=== PATIENT | female | born 1960 ===

== ENCOUNTER 2016-12-02 12:12 | Inpatient (IN) | payer MEDICARE, MEDICAID ==
--- NOTE | 2016-12-02 12:25 | ED PDOC ---
HPI: General Adult Time Seen by Provider: 12/02/16 12:25 Chief Complaint (Nursing): Altered Mental Status Chief Complaint (Provider): AMS History Per: Patient, EMS, Family Past Medical History Vital Signs: Last Vital Signs Temp 98.0 F 12/02/16 12:16 Pulse 85 12/02/16 12:16 Resp 20 12/02/16 12:16 BP 165/82 H 12/02/16 12:16 Pulse Ox - Allergies Allergies/Adverse Reactions: Allergies Allergy/AdvReac Type Severity Reaction Status Date / Time Unobtainable Allergy Verified 12/02/16 12:16
[2016-12-02 13:08] LABS: BASO # 0.1 K/uL (0.0-0.2); BASO % 0.4 % (0.0-2.0); HEMATOCRIT 38.4 % (34.0-47.0); LYMPH # 2.1 K/uL (1.0-4.3); LYMPH % 11.7 % (20.0-40.0); MEAN CELL VOLUME 73.6 fl (81.0-99.0); MEAN CORPUSCULAR HEMOGLOBIN 23.1 pg (27.0-31.0); MEAN CORPUSCULAR HGB CONC 31.4 g/dL (33.0-37.0); MEAN PLATELET VOLUME 8.7 fl (7.2-11.7); MONO # 1.1 K/uL (0.0-0.8); MONO % 6.4 % (0.0-10.0); NEUT # 14.6 K/uL (1.8-7.0); NEUT % 81.5 % (50.0-75.0); RED CELL DISTRIBUTION WIDTH 16.5 % (11.5-14.5); WHITE BLOOD COUNT 17.9 K/uL (4.8-10.8)
[2016-12-02 13:17] LABS: ALB/GLOB RATIO 1.1 (1.0-2.1); ALCOHOL SERUM < 10 mg/dl (0-10); ALKALINE PHOSPHATASE 118 U/L (38-126); ALT/SGPT 40 U/L (9-52); AST/SGOT 40 U/L (14-36); BILIRUBIN,TOTAL 0.8 mg/dl (0.2-1.3); BLOOD UREA NITROGEN 13 mg/dl (7-17); CALCIUM 9.6 mg/dL (8.4-10.2); CARBON DIOXIDE 21 mmol/L (22-30); CHLORIDE 100 mmol/L (98-107); GFR AFRICAN-AMERICAN > 60; GLUCOSE,RANDOM 374 mg/dL (65-105); POTASSIUM 3.7 MMOL/L (3.6-5.0); SODIUM 142 mmol/l (132-148); TOTAL PROTEIN 8.7 G/DL (6.3-8.2)
[2016-12-02 13:33] LABS: PARTIAL THROMBOPLASTIN TIME 21.9 SECONDS (23.3-32.5)
--- NOTE | 2016-12-02 13:43 | ED PDOC ---
HPI: General Adult Time Seen by Provider: 12/02/16 12:25 Chief Complaint (Nursing): Altered Mental Status Chief Complaint (Provider): Abdominal Pain/Psych History Per: Patient, EMS History/Exam Limitations: no limitations Onset/Duration Of Symptoms: Days (x1 week) Have you had recent travel within the past 21 days to any of the following countries: [place], [place], [place] or [place]?: No Current Symptoms Are (Timing): Still Present Severity: Moderate Recently: Seen In ED, Treated By A Physician Additional History Per: EMS Additional Complaint(s): Itzel Thompson is a 56 year old female, with a past medical history of hypertension, diabetes mellitus, depression, and bipolar disorder, who presents to the emergency department via EMS, with complaints of abdominal pain, that the patient has been experiencing for 1 week. Abdominal pain is present due to the patient falling a week ago; however, she believes that the pain is occurring due to "babies in her abdomen". Associated nausea is also currently present. Denies vomiting, chest pain, shortness of breath, or a headache. Of note, patient reports that she is hearing voices in her head. Last night, she believes she heard " trumpets". Per family, pt was seen to have witnessed seizures at home associated with fall this afternoon. Unclear if there was LOC but they report convulsions. No history of seizures. Patient's history reviewed from EMS report. Report states patient has a history of major depressive disorder with psychotic features which she is currently taking Fluoxetine and Risperidone for. Patient was admitted to [facility] for psychiatric related issues on 11/28/2016. PMD: Dr. Garcia Past Medical History Reviewed: Historical Data, Nursing Documentation, Vital Signs Vital Signs: Last Vital Signs Temp 98.0 F 12/02/16 12:16 Pulse 82 12/02/16 18:00 Resp 20 12/02/16 12:16 BP 165/82 H 12/02/16 12:16 Pulse Ox - Medical History PMH: Bipolar Disorder, Depression, Diabetes, HTN - Surgical History Surgical History: CABG, Pacemaker (left-sided) - Family History Family History: States: Unknown Family Hx - Social History Current smoker - smoking cessation education provided: No Ex-Smoker (has not smoked in the last 12 months): No Alcohol: None Drugs: Denies - Home Medications Home Medications: Ambulatory Orders Medication Instructions Recorded Calcium Carbonate [Oscal] 1 tab PO BID 12/02/16 FLUoxetine [Prozac] 1 tab PO DAILY 12/02/16 Fluconazole [Diflucan] 1 tab PO DAILY 12/02/16 Insulin Aspart [Novolog Flexpen] 15 units SC TID 12/02/16 Isosorbide Mononitrate [Imdur] 1 tab PO DAILY 12/02/16 Lisinopril [Zestril] 1 tab PO DAILY 12/02/16 Metoprolol Tartrate [Lopressor] 1 tab PO DAILY 12/02/16 Montelukast [Singulair] 1 tab PO HS 12/02/16 Morphine [Morphine Immediate 1 tab PO Q12H 12/02/16 Release Tab] Pantoprazole Sodium [Protonix] 1 tab PO DAILY 12/02/16 Risperidone [Risperdal] 0.5 tab PO BID 12/02/16 - Allergies Allergies/Adverse Reactions: Allergies Allergy/AdvReac Type Severity Reaction Status Date / Time amitriptyline HCl Allergy ITCHING Verified 12/02/16 12:34 [From Elavil] duloxetine HCl Allergy ITCHING Verified 12/02/16 12:34 [From Cymbalta] gabapentin [From Neurontin] Allergy ITCHING Verified 12/02/16 12:34 metformin Allergy ITCHING Verified 12/02/16 12:34 methotrexate Allergy ITCHING Verified 12/02/16 12:34 soy Allergy ITCHING Verified 12/02/16 12:34 Review of Systems ROS Statement: Except As Marked, All Systems Reviewed And Found Negative Cardiovascular: Negative for: Chest Pain Respiratory: Negative for: Shortness of Breath Gastrointestinal: Positive for: Nausea, Abdominal Pain. Negative for: Vomiting Neurological: Positive for: Altered Mental Status. Negative for: Confusion, Headache Psych: Positive for: Depression, Psychosis Physical Exam - Reviewed Nursing Documentation Reviewed: Yes Vital Signs Reviewed: Yes - Physical Exam Appears: Positive for: Non-toxic, No Acute Distress (morbidly obese). Negative for: Uncomfortable Head Exam: Positive for: ATRAUMATIC, NORMOCEPHALIC Skin: Positive for: Normal Color, Warm, Dry Eye Exam: Positive for: Normal appearance, EOMI, PERRL Neck: Positive for: Normal, Painless ROM Cardiovascular/Chest: Positive for: Regular Rate, Rhythm. Negative for: Edema, Murmur Respiratory: Positive for: Normal Breath Sounds. Negative for: Respiratory Distress Gastrointestinal/Abdominal: Positive for: Normal Exam, Soft, Tenderness ( epigastric) Extremity: Positive for: Normal ROM. Negative for: Tenderness, Swelling Neurologic/Psych: Positive for: Alert, Oriented - Laboratory Results Result Diagrams: 12/02/16 12:05 12/02/16 13:00 - ECG ECG: Positive for: Interpreted By Me, Viewed By Me ECG Rhythm: Positive for: Normal QRS, Normal ST Segment, Atrioventricular Paced. Negative for: ST/T Changes Rate: 82 Medical Decision Making Medical Decision Makin:25 Initial Impression: abdominal pain and psychosis, seizures vs syncope Differential Diagnoses include, but are not limited to psychosis, a blunt abdominal injury, and other multiple causes of confusion and abdominal pain are also considered. Initial Plan: * CT Abdomen & Pelvis w/ IV Contrast * CT Head w/o Contrast * Chest X-Ray * EKG * Alcohol Serum * CBC * CMP * PT/PTT * CPK * Lipase * Urine Drug Screen * Urine Dip * Urinalysis * Reevaluation [address] Fajardo who admits for Dr Garcia. Per Dr Fajardo his patient admissions are covered by hospitalist. Scribe Attestation: Documented by Mj Marquez, acting as a scribe for Jhoan Lewis MD. Provider Scribe Attestation: All medical record entries made by the Scribe were at my direction and personally dictated by me. I have reviewed the chart and agree that the record accurately reflects my personal performance of the history, physical exam, medical decision making, and the department course for this patient. I have also personally directed, reviewed, and agree with the discharge instructions and disposition. Disposition - Clinical Impression Clinical Impression: Seizure, Psychosis, Hyperglycemia - Patient ED Disposition Is Patient to be Admitted: Yes Discussed With : Abdirizak Alejo Comment: covering for Dr Fajardo Doctor Will See Patient In The: ED Counseled Patient/Family Regarding: Studies Performed, Diagnosis - Disposition Disposition Time: 18:30 Condition: FAIR - Pt Status Changed To: Hospital Disposition Of: Inpatient - Admit Certification Admit to Inpatient:: After my assessment, the patient will require hospitalization for at least two midnights. This is because of the severity of symptoms shown, intensity of services needed, and/or the medical risk in this patient being treated as an outpatient. - POA Present On Arrival: Falls Or Trauma, Poor Glycemic Control
[2016-12-02 13:55] LABS: LIPASE 57 U/L (23-300)
--- NOTE | 2016-12-02 15:30 | RAD ---
HISTORY: Rib pain. Technique: Single view portable semi erect @ 12:57. COMPARISON: No prior. FINDINGS: LUNGS: No active pulmonary disease. PLEURA: No significant pleural effusion identified, no pneumothorax apparent. CARDIOVASCULAR: Cardiomegaly. No evidence of acute, significant cardiovascular disease. Position/ configuration of pacemaker Satisfactory. OSSEOUS STRUCTURES: No significant abnormalities. VISUALIZED UPPER ABDOMEN: Normal. OTHER FINDINGS: None. IMPRESSION: No active disease.
[2016-12-02] MEDS ORDERED: Sodium Chloride 0.9% 1,000 ML IV STA (15:53)
[2016-12-02] MEDS ORDERED: Insulin Regular 100 units/ml IV STA (16:40)
[2016-12-02] MEDS ORDERED: Insulin Regular 100 units/ml ONE (16:41)
[2016-12-02] MEDS ORDERED: Sodium Chloride 0.9% 100 ML ONE (17:17)
[2016-12-02] MEDS ORDERED: Iodixanol 320 MG/ML 100 ML BOTTLE IV ONE (17:17)
--- NOTE | 2016-12-02 18:10 | CT ---
PROCEDURE: CT HEAD WITHOUT CONTRAST. HISTORY: AMS COMPARISON: None available. TECHNIQUE: Axial computed tomography images were obtained through the head/brain without intravenous contrast. Radiation dose: Total exam DLP = 457.20 mGy-cm. This CT exam was performed using one or more of the following dose reduction techniques: Automated exposure control, adjustment of the mA and/or kV according to patient size, and/or use of iterative reconstruction technique. FINDINGS: HEMORRHAGE: No intracranial hemorrhage. BRAIN: No mass effect or edema. No atrophy or chronic microvascular ischemic changes. VENTRICLES: Unremarkable. No hydrocephalus. CALVARIUM: Unremarkable. PARANASAL SINUSES: Unremarkable as visualized. No significant inflammatory changes. MASTOID AIR CELLS: Unremarkable as visualized. No inflammatory changes. OTHER FINDINGS: None. IMPRESSION: No acute intracranial abnormalities. No significant findings to account for the clinical presentation.
--- NOTE | 2016-12-02 18:15 | CT ---
PROCEDURE: CT Abdomen and Pelvis with contrast HISTORY: fall, injury, abdominal pain COMPARISON: None. TECHNIQUE: Contrast dose: 90 cc Visipaque 320. Radiation dose: Total exam DLP = 1125.82 mGy-cm. This CT exam was performed using one or more of the following dose reduction techniques: Automated exposure control, adjustment of the mA and/or kV according to patient size, and/or use of iterative reconstruction technique. FINDINGS: LOWER THORAX: Unremarkable. LIVER: Hepatomegaly. Hepatic steatosis. No focal masses. No intrahepatic bile duct dilatation or perihepatic ascites. GALLBLADDER AND BILE DUCTS: Status post cholecystectomy. No abnormality is seen in the gallbladder fossa. PANCREAS: Unremarkable. No gross lesion or ductal dilatation. SPLEEN: Unremarkable. ADRENALS: Unremarkable. No mass. KIDNEYS AND URETERS: Unremarkable. No hydronephrosis. No solid mass. VASCULATURE: Unremarkable. No aortic aneurysm. BOWEL: Unremarkable. No obstruction. No gross mural thickening. APPENDIX: Normal appendix. PERITONEUM: Unremarkable. No free fluid. No free air. LYMPH NODES: Unremarkable. No enlarged lymph nodes. BLADDER: Unremarkable. REPRODUCTIVE: Unremarkable. BONES: No acute fracture. OTHER FINDINGS: None. IMPRESSION: No acute findings related to/accounting for the clinical presentation. Additional benign and/or incidental findings described above.
--- NOTE | 2016-12-02 19:26 | CP.PCM.HP ---
History of Present Illness - History of Present Illness History of Present Illness: 56 yo female with history of Depression, HTN, CAD, DMII, COPD and "cardiac diseas/cardiac arrhythmia" with pacemaker and defibrillator brought in by EMS because of witnessed generalized seizure. Homemaker described seizure activity as jerking all over with eyeballs rolling up. She was out for 2 minutes, then confused for a few minutes when awaken. Patient has not been sleeping for 4 days since she stopped taking Ambien and Xanax. She also complained of abdominal pain in the ER because of a fall a week ago. Not sure whether there was LOC during the fall or during the witnessed seizure by the family. Patient denied chest pain, SOB, palpitation or headache. Son Ricardo said that she was just [place] [facility] staying for 4 days. Present on Admission - Present on Admission Any Indicators Present on Admission: No History of DVT/PE: No History of Uncontrolled Diabetes: No Urinary Catheter: No Decubitus Ulcer Present: No Review of Systems - Review of Systems All systems: reviewed and no additional remarkable complaints except (aside from those mentioned, 12 point system review were negative by me) Past Patient History - Past Social History Smoking Status: Former Smoker Alcohol: None Drugs: Denies Home Situation {Lives}: With Family - CARDIAC Hx Cardia Arrhythmia: Yes Hx Hypertension: Yes Hx Internal Defibrillator: Yes Hx Pacemaker: Yes (left-sided) - PULMONARY Hx Chronic Obstructive Pulmonary Disease (COPD): Yes - NEUROLOGICAL Hx Neurological Disorder: No - HEENT Hx HEENT Problems: No - RENAL Hx Chronic Kidney Disease: No - ENDOCRINE/METABOLIC Hx Diabetes Mellitus Type 2: Yes - HEMATOLOGICAL/ONCOLOGICAL Hx Blood Disorders: No - INTEGUMENTARY Hx Dermatological Problems: No - MUSCULOSKELETAL/RHEUMATOLOGICAL Hx Musculoskeletal Disorders: No - GASTROINTESTINAL Hx Gastrointestinal Disorders: No - GENITOURINARY/GYNECOLOGICAL Hx Genitourinary Disorders: No - PSYCHIATRIC Hx Bipolar Disorder: Yes Hx Depression: Yes - SURGICAL HISTORY Hx Section: Yes (4 ) Hx Cholecystectomy: Yes Other/Comment: pacemaker/defibrillator, AICD? insertion - ANESTHESIA Hx Anesthesia: Yes Hx Anesthesia Reactions: No Meds Allergies/Adverse Reactions: Allergies Allergy/AdvReac Type Severity Reaction Status Date / Time amitriptyline HCl Allergy ITCHING Verified 12/02/16 12:34 [From Elavil] duloxetine HCl Allergy ITCHING Verified 12/02/16 12:34 [From Cymbalta] gabapentin [From Neurontin] Allergy ITCHING Verified 12/02/16 12:34 metformin Allergy ITCHING Verified 12/02/16 12:34 methotrexate Allergy ITCHING Verified 12/02/16 12:34 soy Allergy ITCHING Verified 12/02/16 12:34 Physical Exam - Constitutional Appears: No Acute Distress - Head Exam Head Exam: ATRAUMATIC - Eye Exam Eye Exam: EOMI, PERRL. absent: Nystagmus Pupil Exam: NORMAL ACCOMODATION - ENT Exam ENT Exam: Mucous Membranes Moist - Neck Exam Neck exam: Negative for: Meningismus - Respiratory Exam Respiratory Exam: absent: Rhonchi, Wheezes, Respiratory Distress - Cardiovascular Exam Cardiovascular Exam: REGULAR RHYTHM, +S1, +S2 - GI/Abdominal Exam GI & Abdominal Exam: Soft. absent: Tenderness - Rectal Exam Rectal Exam: Deferred - Extremities Exam Extremities exam: Negative for: calf tenderness, pedal edema - Back Exam Back exam: absent: tenderness - Neurological Exam Neurological exam: Alert, Oriented x3 - Psychiatric Exam Psychiatric exam: Flat Affect - Skin Skin Exam: Dry, Intact Results - Vital Signs Recent Vital Signs: Last Vital Signs Temp 98.0 F 12/02/16 12:16 Pulse 82 12/02/16 18:39 Resp 20 12/02/16 12:16 BP 165/82 H 12/02/16 12:16 Pulse Ox - Labs Result Diagrams: 12/02/16 12:05 12/02/16 13:00 Assessment & Plan (1) New onset seizure Status: Acute Comment: admit to telemetry. neuro consult with Dr Barreto (called by ER). Ativan 1mg IV q 4hrs prn (2) Psychosis Status: Chronic Comment: psyche consult with Dr Thomson. Fluoxetine 1mg PO daily. Risperidone 0.5mg PO BID (3) HTN (hypertension) Status: Chronic Comment: BP uncontrolled. Lopressor 25mg PO q 12hrs. Lisinopril 5mg PO daily. Imdur 30mg PO HS (4) DMII (diabetes mellitus, type 2) Status: Chronic Comment: BS uncontrolled. accuchek ACHS. Insulin Aspart 15 units SC ACTID. Levemir 30 units SC HS. HgA1C, BMP in am (5) COPD (chronic obstructive pulmonary disease) Status: Chronic Comment: asymptomatic. Duoneb q 4hrs prn for wheezing/SOB. Montelukast 10mg PO HS (6) CAD (coronary artery disease) Status: Chronic Comment: denied chest pain or SOB. continue Imdur, statin and ASA. cardiology consult with Dr Murillo (7) DVT prophylaxis Status: Acute Comment: Lovenox 40mg SC daily
[2016-12-02 21:57] LABS: RBC URINE 2 /hpf (0-3); URINE BILIRUBIN NEGATIVE (NEGATIVE); URINE BLOOD NEGATIVE (NEGATIVE); URINE COLOR YELLOW (YELLOW); URINE GLUCOSE (UA) >=500 mg/dL (Normal); URINE KETONE 80 mg/dL (NEGATIVE); URINE LEUKOCYTE ESTERASE NEG Leu/uL (Negative); URINE PROTEIN >=500 mg/dL (NEGATIVE); URINE UROBILINOGEN 0.2-1.0 mg/dL (0.2-1.0); WBC URINE < 1 /hpf (0-5)
[2016-12-02] MEDS ORDERED: Insulin Detemir 100 Units/ml Inj SC SCH (22:00)
[2016-12-03 07:26] LABS: BASO # 0.1 K/uL (0.0-0.2); BASO % 0.4 % (0.0-2.0); HEMATOCRIT 37.4 % (34.0-47.0); LYMPH # 3.8 K/uL (1.0-4.3); MEAN CORPUSCULAR HEMOGLOBIN 22.7 pg (27.0-31.0); MEAN CORPUSCULAR HGB CONC 30.7 g/dL (33.0-37.0); MEAN PLATELET VOLUME 8.6 fl (7.2-11.7); MONO # 1.4 K/uL (0.0-0.8); MONO % 7.9 % (0.0-10.0); NEUT # 12.8 K/uL (1.8-7.0); NEUT % 70.7 % (50.0-75.0); RED CELL DISTRIBUTION WIDTH 16.8 % (11.5-14.5); WHITE BLOOD COUNT 18.1 K/uL (4.8-10.8)
[2016-12-03 08:02] LABS: BLOOD UREA NITROGEN 15 mg/dl (7-17); CALCIUM 9.5 mg/dL (8.4-10.2); CARBON DIOXIDE 21 mmol/L (22-30); CHLORIDE 104 mmol/L (98-107); GFR AFRICAN-AMERICAN > 60; GLUCOSE,RANDOM 296 mg/dL (65-105); POTASSIUM 3.1 MMOL/L (3.6-5.0); SODIUM 144 mmol/l (132-148)
[2016-12-03] MEDS ORDERED: Pantoprazole 40 mg EC Tab PO SCH (09:00)
[2016-12-03] MEDS ORDERED: Insulin Lispro (humaLOG) 100 Units/ml Inj SC SCH (09:00)
[2016-12-03] MEDS: Pantoprazole 40 mg EC Tab PO SCH (09:18)
[2016-12-03] MEDS: Enoxaparin 40 mg Syringe SC SCH (09:19)
[2016-12-03] MEDS: Insulin Detemir 100 Units/ml Inj SC SCH ×2 (11:00→21:42)
--- NOTE | 2016-12-03 11:44 | CP.PCM.CON ---
History of Present Illness - History of Present Illness History of Present Illness: Psychiatry consult called for evaluation of depression Patient is a poor historian due to acute altered mental status 2/2 medical/ neurological reasons. CC: "I don't remember." HPI: 56 year old female, with a past medical history of hypertension, diabetes mellitus, depression, presented to the emergency department via EMS, with complaints of abdominal pain, and witnessed seizures associated with a fall. Patient unable to participate in interview at this time due to acute change in mental status 2/2 medical issues. Patient denied acute ideation to harm herself, but mortgage or loan underwriter was unable to get any additional information. PMHx: Hypertension, diabetes mellitus, depression, seizure PPHx: [place] [facility] [place] w/ [place] features, as per chart treated with Prozac 40 daily and Risperdal 0.5 mg PO BID. Patient unable to provide additional information. PMD: Dr. Garcia All: Amitriptyline, Duloxetine, Gabapentin, Meformin; unable to confirm with the patient as this time FHx: Unknown family history of mental illness MSE: Alert and oriented to self. Unable to engage in interview, was falling asleep. Impression: 56 year old female, with a past medical history of hypertension, diabetes mellitus, depression, presented to the emergency department via EMS, with complaints of abdominal pain, and witnessed seizures associated with a fall. Acute change in mental status is due to a primary medical condition, not acute psychiatric issue. -No acute psychiatric admission indicated at this time -If previous medications have been confirmed, continue Prozac 40 mg PO Daily and Risperdal 0.5 mg PO BID -Call w/ further questions, Dr. Thomson [phone] Past Patient History - Past Medical History & Family History Past Medical History?: Yes - Past Social History Smoking Status: Never Smoked - CARDIAC Hx Cardiac Disorders: Yes Hx Hypertension: Yes - PULMONARY Hx Respiratory Disorders: Yes Hx Chronic Obstructive Pulmonary Disease (COPD): Yes - NEUROLOGICAL Hx Neurological Disorder: Yes Hx Seizures: Yes - HEENT Hx HEENT Problems: No - RENAL Hx Chronic Kidney Disease: No - ENDOCRINE/METABOLIC Hx Endocrine Disorders: Yes Hx Diabetes Mellitus Type 2: Yes - HEMATOLOGICAL/ONCOLOGICAL Hx Blood Disorders: No Hx AIDS: No Hx Human Immunodeficiency Virus (HIV): No - INTEGUMENTARY Hx Dermatological Problems: No - MUSCULOSKELETAL/RHEUMATOLOGICAL Hx Musculoskeletal Disorders: No Hx Falls: Yes - GASTROINTESTINAL Hx Gastrointestinal Disorders: No - GENITOURINARY/GYNECOLOGICAL Hx Genitourinary Disorders: No - PSYCHIATRIC Hx Psychophysiologic Disorder: Yes Hx Bipolar Disorder: Yes Hx Depression: Yes Hx Substance Use: No - SURGICAL HISTORY Hx Surgeries: Yes Hx Section: Yes (4 ) Hx Cholecystectomy: Yes Other/Comment: pacemaker/defibrillator, AICD? insertion - ANESTHESIA Hx Anesthesia: Yes Hx Anesthesia Reactions: No Meds Allergies/Adverse Reactions: Allergies Allergy/AdvReac Type Severity Reaction Status Date / Time amitriptyline HCl Allergy ITCHING Verified 12/02/16 12:34 [From Elavil] duloxetine HCl Allergy ITCHING Verified 12/02/16 12:34 [From Cymbalta] gabapentin [From Neurontin] Allergy ITCHING Verified 12/02/16 12:34 metformin Allergy ITCHING Verified 12/02/16 12:34 methotrexate Allergy ITCHING Verified 12/02/16 12:34 soy Allergy ITCHING Verified 12/02/16 12:34 - Medications Medications: Current Medications Aspirin (Aspirin Chewable) 81 mg PO DAILY [facility] Last Admin: 12/03/16 09:16 Dose: 81 mg Atorvastatin Calcium (Lipitor) [address] [facility] Last Admin: 12/02/16 22:18 Dose: 20 mg Calcium Carbonate (Oscal) 500 mg PO DAILY [facility] Last Admin: 12/03/16 09:18 Dose: Not Given Enoxaparin Sodium (Lovenox) 40 mg SC DAILY [facility] PRN Reason: Protocol Last Admin: 12/03/16 09:19 Dose: Not Given Fluoxetine HCl (Prozac) 40 mg PO DAILY [facility] Last Admin: 12/03/16 09:19 Dose: 40 mg Insulin Detemir (Levemir) 40 units SC HS [facility] Last Admin: 12/03/16 11:00 Dose: Not Given Insulin Human Lis[facility] ([facility]al[facility]) [facility] Isosorbide Mononitrate (Imdur) [address] [facility] Last Admin: 12/02/16 22:18 Dose: 30 mg Lisinopril (Zestril) 5 mg PO DAILY [facility] Last Admin: 12/03/16 09:20 Dose: 5 mg Lorazepam (Ativan) 1 mg IVP Q4 PRN PRN Reason: Seizure activity Metoprolol Tartrate (Lopressor) 25 mg PO Q12 [facility] Last Admin: 12/03/16 09:17 Dose: 25 mg Montelukast Sodium (Singulair) 10 mg PO HS [facility] Last Admin: 12/02/16 22:18 Dose: 10 mg Pantoprazole Sodium (Protonix Ec Tab) 40 mg PO DAILY [facility] Last Admin: 12/03/16 09:18 Dose: 40 mg Risperidone (Risperdal Tab) 0.5 mg PO BID [facility] Last Admin: 12/03/16 09:19 Dose: 0.5 mg Results - Vital Signs Recent Vital Signs: Last Vital Signs Temp 98.5 F 12/03/16 08:00 Pulse 68 12/03/16 09:20 Resp 18 12/03/16 08:00 BP 132/70 12/03/16 09:20 Pulse Ox 95 12/03/16 08:00 - Labs Result Diagrams: 12/03/16 05:30 12/03/16 05:30 Labs: Laboratory Results - last 24 hr 12/02/16 12/02/16 12/02/16 18:53 20:46 21:13 WBC RBC Hgb Hct MCV MCH MCHC RDW Plt Count MPV Neut % (Auto) Lymph % (Auto) Branch % (Auto) Eos % (Auto) Baso % (Auto) Neut # Lymph # Branch # Eos # Baso # Sodium Potassium Chloride Carbon Dioxide Anion Gap BUN Creatinine Est GFR ( Amer) Est GFR (Non-Af Amer) POC Glucose (mg/dL) 250 H 297 H Random Glucose Calcium Troponin I < 0.0120 Urine Color Urine Clarity Urine pH Ur Specific Collins Urine Protein Urine Glucose (UA) Urine Ketones Urine Blood Urine Nitrate Urine Bilirubin Urine Urobilinogen Ur Leukocyte Esterase Urine RBC (Auto) Urine Microscopic WBC Ur Squamous Epith Cells Urine Opiates Screen Urine Methadone Screen Ur Barbiturates Screen Ur Phencyclidine Scrn Ur Amphetamines Screen U Benzodiazepines Scrn U Oth Cocaine Metabols U Cannabinoids Screen 12/02/16 12/03/16 12/03/16 21:45 05:30 07:58 WBC 18.1 H RBC 5.06 Hgb 11.5 L Hct 37.4 MCV 74.0 L MCH 22.7 L MCHC 30.7 L RDW 16.8 H Plt Count 450 H MPV 8.6 Neut % (Auto) 70.7 Lymph % (Auto) 21.0 Branch % (Auto) 7.9 Eos % (Auto) 0.0 Baso % (Auto) 0.4 Neut # 12.8 H Lymph # 3.8 Branch # 1.4 H Eos # 0.0 Baso # 0.1 Sodium 144 Potassium 3.1 L Chloride 104 Carbon Dioxide 21 L Anion Gap 22 H BUN 15 Creatinine 0.4 L Est GFR ( Amer) > 60 Est GFR (Non-Af Amer) > 60 POC Glucose (mg/dL) 288 H Random Glucose 296 H Calcium 9.5 Troponin I < 0.0120 Urine Color Yellow Urine Clarity Clear Urine pH 6.0 Ur Specific Collins 1.059 H Urine Protein >=500 Urine Glucose (UA) >=500 Urine Ketones 80 Urine Blood Negative Urine Nitrate Negative Urine Bilirubin Negative Urine Urobilinogen 0.2-1.0 Ur Leukocyte Esterase Neg Urine RBC (Auto) 2 Urine Microscopic WBC < 1 Ur Squamous Epith Cells 1 Urine Opiates Screen Positive H Urine Methadone Screen Negative Ur Barbiturates Screen Negative Ur Phencyclidine Scrn Negative Ur Amphetamines Screen Negative U Benzodiazepines Scrn Negative U Oth Cocaine Metabols Negative U Cannabinoids Screen Negative
[2016-12-03] MEDS: Insulin Lispro (humaLOG) 100 Units/ml Inj SC SCH ×2 (12:30→16:36)
[2016-12-03] MEDS ORDERED: Potassium Chloride 20 mEq ER Tab PO ONE (15:25)
--- NOTE | 2016-12-03 15:35 | CP.PCM.CON ---
History of Present Illness - History of Present Illness History of Present Illness: Mrs. Thompson is a 56-year-old woman with a history of psychiatric illness, recently discharged from a behavioral health unit, where she states she had been taken off of her Xanax and Ambien and started on risperdone and fluoxetine. She was subsequently discharged and suffered a generalized tonic- clonic seizure with urinary incontinence, but no tongue biting. She has no recollection of the event and states that she feels that she is "lost" and does not know what happened. She denies headache, nausea, visual changes, chest pain , new weakness, shortness of breath or other associated symptoms. Review of Systems - Review of Systems All systems: reviewed and no additional remarkable complaints except Past Patient History - Past Medical History & Family History Past Medical History?: Yes - Past Social History Smoking Status: Never Smoked - CARDIAC Hx Cardiac Disorders: Yes Hx Hypertension: Yes - PULMONARY Hx Respiratory Disorders: Yes Hx Chronic Obstructive Pulmonary Disease (COPD): Yes - NEUROLOGICAL Hx Neurological Disorder: Yes Hx Seizures: Yes - HEENT Hx HEENT Problems: No - RENAL Hx Chronic Kidney Disease: No - ENDOCRINE/METABOLIC Hx Endocrine Disorders: Yes Hx Diabetes Mellitus Type 2: Yes - HEMATOLOGICAL/ONCOLOGICAL Hx Blood Disorders: No Hx AIDS: No Hx Human Immunodeficiency Virus (HIV): No - INTEGUMENTARY Hx Dermatological Problems: No - MUSCULOSKELETAL/RHEUMATOLOGICAL Hx Musculoskeletal Disorders: No Hx Falls: Yes - GASTROINTESTINAL Hx Gastrointestinal Disorders: No - GENITOURINARY/GYNECOLOGICAL Hx Genitourinary Disorders: No - PSYCHIATRIC Hx Psychophysiologic Disorder: Yes Hx Bipolar Disorder: Yes Hx Depression: Yes Hx Substance Use: No - SURGICAL HISTORY Hx Surgeries: Yes Hx Section: Yes (4 ) Hx Cholecystectomy: Yes Other/Comment: pacemaker/defibrillator, AICD? insertion - ANESTHESIA Hx Anesthesia: Yes Hx Anesthesia Reactions: No Meds Allergies/Adverse Reactions: Allergies Allergy/AdvReac Type Severity Reaction Status Date / Time amitriptyline HCl Allergy ITCHING Verified 12/02/16 12:34 [From Elavil] duloxetine HCl Allergy ITCHING Verified 12/02/16 12:34 [From Cymbalta] gabapentin [From Neurontin] Allergy ITCHING Verified 12/02/16 12:34 metformin Allergy ITCHING Verified 12/02/16 12:34 methotrexate Allergy ITCHING Verified 12/02/16 12:34 soy Allergy ITCHING Verified 12/02/16 12:34 - Medications Medications: Current Medications Aspirin (Aspirin Chewable) 81 mg PO DAILY [facility] Last Admin: 12/03/16 09:16 Dose: 81 mg Atorvastatin Calcium (Lipitor) 20 mg PO HS [facility] Last Admin: 12/02/16 22:18 Dose: 20 mg Calcium Carbonate (Oscal) 500 mg PO DAILY [facility] Last Admin: 12/03/16 09:18 Dose: Not Given Enoxaparin Sodium (Lovenox) 40 mg SC DAILY [facility] PRN Reason: Protocol Last Admin: 12/03/16 09:19 Dose: Not Given Fluoxetine HCl (Prozac) 40 mg PO DAILY [facility] Last Admin: 12/03/16 09:19 Dose: 40 mg Insulin Detemir (Levemir) 40 units SC HS [facility] Last Admin: 12/03/16 11:00 Dose: Not Given Insulin Human Lispro (Humalog) 15 units SC ACTID [facility] Last Admin: 12/03/16 12:30 Dose: 15 unit Isosorbide Mononitrate (Imdur) 30 mg PO [facility] Last Admin: 12/02/16 22:18 Dose: 30 mg Lisinopril (Zestril) 5 mg PO DAILY [facility] Last Admin: 12/03/16 09:20 Dose: 5 mg Lorazepam (Ativan) 1 mg IVP Q4 PRN PRN Reason: Seizure activity Metoprolol Tartrate (Lopressor) 25 mg PO Q12 [facility] Last Admin: 12/03/16 09:17 Dose: 25 mg Montelukast Sodium (Singulair) 10 mg PO HS [facility] Last Admin: 12/02/16 22:18 Dose: 10 mg Pantoprazole Sodium (Protonix Ec Tab) 40 mg PO DAILY [facility] Last Admin: 12/03/16 09:18 Dose: 40 mg Potassium Chloride (K-Dur 20 Meq Er Tab) 20 meq PO ONCE ONE Stop: 12/03/16 15:26 Risperidone (Risperdal Tab) 0.5 mg PO BID [facility] Last Admin: 12/03/16 09:19 Dose: 0.5 mg Physical Exam - Constitutional Appears: Well - Head Exam Head Exam: ATRAUMATIC, NORMAL INSPECTION, NORMOCEPHALIC - Eye Exam Eye Exam: EOMI, Normal appearance, PERRL Pupil Exam: NORMAL ACCOMODATION, PERRL - ENT Exam ENT Exam: Mucous Membranes Moist, Normal Exam - Neck Exam Neck exam: Positive for: Normal Inspection - Respiratory Exam Respiratory Exam: Clear to Auscultation Bilateral, NORMAL BREATHING PATTERN - Cardiovascular Exam Cardiovascular Exam: REGULAR RHYTHM - GI/Abdominal Exam GI & Abdominal Exam: Normal Bowel Sounds, Soft. absent: Tenderness - Neurological Exam Neurological exam: Alert, CN II-XII Intact, Normal Gait, Oriented x3, Reflexes Normal - Expanded Neurological Exam Expanded Patient oriented to: person, place, time Speech: Fluid Speech Cranial nerves: EOM's Intact: Normal, Facial Palsey w/Forehead Movement: Normal , Gag Reflex: Normal Ataxia: No Cerebellar Function: Finger to Nose: Normal, Heel to Thomas: Normal, Romberg: Normal Upper motor neuron: Babinski Sign: Normal, Pronator Drift: Normal Sensory exam: Lower Extremity 2 Point Discrimination: Normal, Lower Extremity Light Touch: Normal, Lower Extremity Pin Prick: Normal, Lower Extremity Temperature: Normal, Upper Extremity 2 Point Discrimination: Normal, Upper Extremity Light Touch: Normal, Upper Extremity Pin Prick: Normal, Upper Extremity Temperature: Normal Neuro motor strength exam: Left Upper Extremity: 5, Right Upper Extremity: 5, Left Lower Extremity: 5, Right Lower Extremity: 5 DTR: Achilles Tendon Left: 2+, Achilles Tendon Right: 2+, Bicep Left: 2+, Bicep Right: 2+, Brachioradialis Left: 2+, Brachioradialis Right: 2+, Patellar Left: 2 +, Patellar Right: 2+, Tricep Left: 2+, Tricep Right: 2+ - Psychiatric Exam Psychiatric exam: Normal Affect, Normal Mood Results - Vital Signs Recent Vital Signs: Last Vital Signs Temp 99.6 F 12/03/16 12:08 Pulse 68 12/03/16 12:08 Resp 18 12/03/16 12:08 BP 109/63 12/03/16 12:08 Pulse Ox 95 12/03/16 12:08 - Labs Result Diagrams: 12/03/16 05:30 12/03/16 05:30 Labs: Laboratory Results - last 24 hr 12/02/16 12/02/16 12/02/16 18:53 20:46 21:13 WBC RBC Hgb Hct MCV MCH MCHC RDW Plt Count MPV Neut % (Auto) Lymph % (Auto) Tift % (Auto) Eos % (Auto) Baso % (Auto) Neut # Lymph # Tift # Eos # Baso # Sodium Potassium Chloride Carbon Dioxide Anion Gap BUN Creatinine Est GFR ( Amer) Est GFR (Non-Af Amer) POC Glucose (mg/dL) 250 H 297 H Random Glucose Calcium Troponin I < 0.0120 Urine Color Urine Clarity Urine pH Ur Specific [place] Urine Protein Urine Glucose (UA) Urine Ketones Urine Blood Urine Nitrate Urine Bilirubin Urine Urobilinogen Ur Leukocyte Esterase Urine RBC (Auto) Urine Microscopic WBC Ur Squamous Epith Cells Urine Opiates Screen Urine Methadone Screen Ur Barbiturates Screen Ur Phencyclidine Scrn Ur Amphetamines Screen U Benzodiazepines Scrn U Oth Cocaine Metabols U Cannabinoids Screen 12/02/16 12/03/16 12/03/16 21:45 05:30 07:58 WBC 18.1 H RBC 5.06 Hgb 11.5 L Hct 37.4 MCV 74.0 L MCH 22.7 L MCHC 30.7 L RDW 16.8 H Plt Count 450 H MPV 8.6 Neut % (Auto) 70.7 Lymph % (Auto) 21.0 Tift % (Auto) 7.9 Eos % (Auto) 0.0 Baso % (Auto) 0.4 Neut # 12.8 H Lymph # 3.8 Tift # 1.4 H Eos # 0.0 Baso # 0.1 Sodium 144 Potassium 3.1 L Chloride 104 Carbon Dioxide 21 L Anion Gap 22 H BUN 15 Creatinine 0.4 L Est GFR ( Amer) > 60 Est GFR (Non-Af Amer) > 60 POC Glucose (mg/dL) 288 H Random Glucose 296 H Calcium 9.5 Troponin I < 0.0120 Urine Color Yellow Urine Clarity Clear Urine pH 6.0 Ur Specific [place] 1.059 H Urine Protein >=500 Urine Glucose (UA) >=500 Urine Ketones 80 Urine Blood Negative Urine Nitrate Negative Urine Bilirubin Negative Urine Urobilinogen 0.2-1.0 Ur Leukocyte Esterase Neg Urine RBC (Auto) 2 Urine Microscopic WBC < 1 Ur Squamous Epith Cells 1 Urine Opiates Screen Positive H Urine Methadone Screen Negative Ur Barbiturates Screen Negative Ur Phencyclidine Scrn Negative Ur Amphetamines Screen Negative U Benzodiazepines Scrn Negative U Oth Cocaine Metabols Negative U Cannabinoids Screen Negative - Imaging and Cardiology CT scan - head Status: Image reviewed by me, Report reviewed by me (No acute findings. ) Assessment & Plan (1) New onset seizure Assessment and Plan: Based on the history of abrupt discontinuation of benzodiazepine and ambien with the addition of atypical antipsychotic and SSRI, the patient likely had decreased her seizure threshold and had a seizure as a result. With her history of insomnia, mood disorder and seizure, I recommend starting Depakote at 500 mg BID. An EEG is recommended when logistically possible along with infectious and metabolic work-up. Thank you very much for this consultation. Status: Acute (2) Seizure Status: Acute
--- NOTE | 2016-12-03 15:45 | CP.PCM.PN ---
Subjective - Date & Time of Evaluation Date of Evaluation: 12/03/16 Time of Evaluation: 12:30 - Subjective Subjective: Pt seen and examined. Appeared confused and denied remembering talking with yesterday. She does not know why she is here. Objective - Vital Signs/Intake and Output Vital Signs (last 24 hours): Temp Pulse Resp BP Pulse Ox 99.6 F 68 18 109/63 95 12/03/16 12:08 12/03/16 12:08 12/03/16 12:08 12/03/16 12:08 12/03/16 12:08 - Medications Medications: Current Medications Aspirin (Aspirin Chewable) 81 mg PO DAILY [facility] Last Admin: 12/03/16 09:16 Dose: 81 mg Atorvastatin Calcium (Lipitor) 20 mg PO HS [facility] Last Admin: 12/02/16 22:18 Dose: 20 mg Calcium Carbonate (Oscal) 500 mg PO DAILY [facility] Last Admin: 12/03/16 09:18 Dose: Not Given Enoxaparin Sodium (Lovenox) 40 mg SC DAILY [facility] PRN Reason: Protocol Last Admin: 12/03/16 09:19 Dose: Not Given Fluoxetine HCl (Prozac) 40 mg PO DAILY [facility] Last Admin: 12/03/16 09:19 Dose: 40 mg Insulin Detemir (Levemir) 40 units SC HS [facility] Last Admin: 12/03/16 11:00 Dose: Not Given Insulin Human Lispro (Humalog) 15 units SC ACTID [facility] Last Admin: 12/03/16 12:30 Dose: 15 unit Isosorbide Mononitrate (Imdur) 30 mg PO HS [facility] Last Admin: 12/02/16 22:18 Dose: 30 mg Lisinopril (Zestril) 5 mg PO DAILY [facility] Last Admin: 12/03/16 09:20 Dose: 5 mg Lorazepam (Ativan) 1 mg IVP Q4 PRN PRN Reason: Seizure activity Metoprolol Tartrate (Lopressor) 25 mg PO Q12 [facility] Last Admin: 12/03/16 09:17 Dose: 25 mg Montelukast Sodium (Singulair) 10 mg PO HS [facility] Last Admin: 12/02/16 22:18 Dose: 10 mg Pantoprazole Sodium (Protonix Ec Tab) 40 mg PO DAILY [facility] Last Admin: 12/03/16 09:18 Dose: 40 mg Risperidone (Risperdal Tab) 0.5 mg PO BID [facility] Last Admin: 12/03/16 09:19 Dose: 0.5 mg - Labs Labs: 12/03/16 05:30 12/03/16 05:30 PT 11.2 SECONDS (9.6-11.2) 12/02/16 12:05 INR 1.08 (0.92-1.08) 12/02/16 12:05 APTT 21.9 SECONDS (23.3-32.5) L 12/02/16 12:05 - Constitutional Appears: No Acute Distress, Confused - Head Exam Head Exam: ATRAUMATIC - Eye Exam Eye Exam: EOMI, PERRL. absent: Nystagmus Pupil Exam: NORMAL ACCOMODATION - ENT Exam ENT Exam: Mucous Membranes Moist - Neck Exam Neck Exam: absent: Meningismus - Respiratory Exam Respiratory Exam: absent: Rhonchi, Wheezes, Respiratory Distress - Cardiovascular Exam Cardiovascular Exam: REGULAR RHYTHM, +S1, +S2 - GI/Abdominal Exam GI & Abdominal Exam: Soft. absent: Tenderness - Rectal Exam Rectal Exam: Deferred - Neurological Exam Neurological Exam: Altered, Awake - Psychiatric Exam Psychiatric exam: Flat Affect - Skin Skin Exam: Dry, Intact Assessment and Plan (1) New onset seizure Status: Acute (2) Psychosis Status: Chronic (3) HTN (hypertension) Status: Chronic (4) DMII (diabetes mellitus, type 2) Status: Chronic (5) COPD (chronic obstructive pulmonary disease) Status: Chronic (6) CAD (coronary artery disease) Status: Chronic (7) DVT prophylaxis Status: Acute - Assessment and Plan (Free Text) Assessment: 56 yo female with history of Depression, HTN, CAD with AICD, DMII and COPD brought in by EMS because of witnessed generalized seizure. When patient was she was confused. Patient had not been sleeping for 4 days since Ambien and Xanax were stopped on her stay in [facility] psyche unit. Patient was discharged a day before the new onset seizure. Patient also had been falling recently but no LOC. (1) New onset seizure patient could not remember meeting me yesterday now new ictal activity neuro consult with Dr Barreto appreciated Depakote 500mg PO BID (2) Psychosis psyche consult with Dr Thomson appreciated Fluoxetine 1mg PO daily. Risperidone 0.5mg PO BID (3) HTN (hypertension) BP controlled Lopressor 25mg PO q 12hrs. Lisinopril 5mg PO daily. Imdur 30mg PO HS (4) DMII (diabetes mellitus, type 2) BS uncontrolled Insulin Lispro 15 units SC ACTID. increase Levemir 40 units SC HS. HgA1C pending continue accuchek ACHS (5) COPD (chronic obstructive pulmonary disease) asymptomatic. Duoneb q 4hrs prn for wheezing/SOB. Montelukast 10mg PO HS (6) CAD (coronary artery disease) denied chest pain or SOB. continue Imdur, statin and ASA. cardiology consult with Dr Murillo (7) DVT prophylaxis Lovenox 40mg SC daily
[2016-12-03] MEDS: Divalproex 500 mg DR(BID formulation) PO SCH (16:35)
[2016-12-03] MEDS ORDERED: Valproic Acid 250 mg/5 ml UD Cup PO SCH (17:00)
--- NOTE | 2016-12-03 20:58 | CARD ---
APPROVED REPORT EKG Measurement Heart [id number] <Conclusion> Atrial-sensed ventricular-paced rhythm Abnormal ECG
--- NOTE | 2016-12-03 21:21 | CP.PCM.CON ---
History of Present Illness - History of Present Illness History of Present Illness: I was asked to see patient by Dr Alejo. Patient is a 56 year old female with PMH HTN, dilated non ischemic cardiomyopathy s/p AICD who presents with syncope. The patient states she was at home when she noted an episode of dizziness and then does not remember what happened. The patient denies preceding chest pain or palpitations. Review of Systems - Constitutional Constitutional: absent: As Per HPI, Anorexia, Chills, Daytime Sleepiness, Excessive Sweating, Fatigue, Fever, Frequent Falls, Headache, Increased Appetite , Lethargy, Malaise, Night Sweats, Snoring, Sleep Apnea, Weight Gain, Weight Loss, Weakness, Other - EENT Eyes: absent: As Per HPI, Blind Spots, Blurred Vision, Change in Vision, Decreased Night Vision, Diplopia, Discharge, Dry Eye, Exophthalmos, Floaters, Irritation, Itchy Eyes, Loss of Peripheral Vision, Pain, Photophobia, Requires Corrective Lenses, Sees Flashes, Spots in Vision, Tunnel Vision, Other Visual Disturbances, Loss of Vision, Other Ears: absent: As Per HPI, Decreased Hearing, Ear Discharge, Ear Pain, Tinnitus, Abnormal Hearing, Disequilibrium, Dizziness, Other Nose/Mouth/Throat: absent: As Per HPI, Epistaxis, Nasal Congestion, Nasal Discharge, Nasal Obstruction, Nasal Trauma, Nose Pain, Post Nasal Drip, Sinus Pain, Sinus Pressure, Bleeding Gums, Change in Voice, Dental Pain, Dry Mouth, Dysphagia, Halitosis, Hoarsness, Lip Swelling, Mouth Lesions, Mouth Pain, Odynophagia, Sore Throat, Throat Swelling, Tongue Swelling, Facial Pain, Neck Pain, Neck Mass, Other - Cardiovascular Cardiovascular: absent: As Per HPI, Acrocyanosis, Chest Pain, Chest Pain at Rest , Chest Pain with Activity, Claudication, Diaphoresis, Dyspnea, Dyspnea on Exertion, Edema, Irregular Heart Rhythm, Pain Radiating to Arm/Neck/Jaw, Leg Edema, Leg Ulcers, Lightheadedness, Orthopnea, Palpitations, Paroxysmal Nocturnal Dyspnea, Pedal Edema, Radiating Pain, Rapid Heart Rate, Slow Heart Rate, Syncope, Other - Respiratory Respiratory: absent: As Per HPI, Cough, Dyspnea, Hemoptysis, Dyspnea on Exertion , Wheezing, Snoring, Stridor, Pain on Inspiration, Chest Congestion, Excessive Mucous Production, Change in Mucous Color, Pain with Coughing, Other - Gastrointestinal Gastrointestinal: absent: As Per HPI, Abdominal Pain, Belching, Bloating, Change in Bowel Habits, Change in Stool Character, Coffee Ground Emesis, Constipation, Cramping, Diarrhea, Dyspepsia, Dysphagia, Early Satiety, Excessive Flatus, Fecal Incontinence, Heartburn, Hematemesis, Hematochezia, Loose Stools, Melena, Nausea, Odynophagia, Temesmus, Vomiting, Other - Musculoskeletal Musculoskeletal: absent: As Per HPI, Abnormal Gait, Arthralgias, Atrophy, Back Pain, Deformity, Joint Swelling, Limited Range of Motion, Loss of Height, Muscle Cramps, Muscle Weakness, Myalgias, Neck Pain, Numbness, Radiating Pain into Limb, Stiffness, Tingling, Other - Integumentary Integumentary: absent: As Per HPI, Acne, Alopecia, Bleeding Lesions, Change in Hair, Change in Nails, Change in Pigmentation, Changing Lesions, Dry Skin, Erythema, Furuncle, Hirsutism, Lesions, New Lesions, Non-Healing Lesions, Photosensitivity, Pruritus, Rash, Skin Pain, Skin Ulcer, Sores, Striae, Swelling , Unusual Bruising, Wounds, Jaundice, Other - Neurological Neurological: Syncope - Psychiatric Psychiatric: absent: As Per HPI, Abnormal Sleep Pattern, Anhedonia, Anxiety, Auditory Hallucinations, Behavioral Changes, Change in Appetite, Change in Libido, Confusion, Depression, Difficulty Concentrating, Hallucinations, Homicidal Ideation, Hopelessness, Irritability, Memory Loss, Mood Swings, Panic Attacks, Paranoia, Suicidal Ideation, Visual Hallucinations, Tactile Hallucinations, Other - Endocrine Endocrine: absent: As Per HPI, Change in Body Appearance, Change in Libido, Cold Intolorance, Deepening of Voice, Excessive Sweating, Fatigue, Flushing, Heat Intolorance, Increase in Ring/Shoe/Hat Size, Palpitations, Polydipsia, Polyphagia, Polyuria, Other - Hematologic/Lymphatic Hematologic: absent: As Per HPI, Easy Bleeding, Easy Bruising, Lymphadenopathy, Other Past Patient History - Past Medical History & Family History Past Medical History?: Yes - Past Social History Smoking Status: Never Smoked - CARDIAC Hx Cardiac Disorders: Yes Hx Hypertension: Yes - PULMONARY Hx Respiratory Disorders: Yes Hx Chronic Obstructive Pulmonary Disease (COPD): Yes - NEUROLOGICAL Hx Neurological Disorder: Yes Hx Seizures: Yes - HEENT Hx HEENT Problems: No - RENAL Hx Chronic Kidney Disease: No - ENDOCRINE/METABOLIC Hx Endocrine Disorders: Yes Hx Diabetes Mellitus Type 2: Yes - HEMATOLOGICAL/ONCOLOGICAL Hx Blood Disorders: No Hx AIDS: No Hx Human Immunodeficiency Virus (HIV): No - INTEGUMENTARY Hx Dermatological Problems: No - MUSCULOSKELETAL/RHEUMATOLOGICAL Hx Musculoskeletal Disorders: No Hx Falls: Yes - GASTROINTESTINAL Hx Gastrointestinal Disorders: No - GENITOURINARY/GYNECOLOGICAL Hx Genitourinary Disorders: No - PSYCHIATRIC Hx Psychophysiologic Disorder: Yes Hx Bipolar Disorder: Yes Hx Depression: Yes Hx Substance Use: No - SURGICAL HISTORY Hx Surgeries: Yes Hx Section: Yes (4 ) Hx Cholecystectomy: Yes Other/Comment: pacemaker/defibrillator, AICD? insertion - ANESTHESIA Hx Anesthesia: Yes Hx Anesthesia Reactions: No Meds Allergies/Adverse Reactions: Allergies Allergy/AdvReac Type Severity Reaction Status Date / Time amitriptyline HCl Allergy ITCHING Verified 12/02/16 12:34 [From Elavil] duloxetine HCl Allergy ITCHING Verified 12/02/16 12:34 [From Cymbalta] gabapentin [From Neurontin] Allergy ITCHING Verified 12/02/16 12:34 metformin Allergy ITCHING Verified 12/02/16 12:34 methotrexate Allergy ITCHING Verified 12/02/16 12:34 soy Allergy ITCHING Verified 12/02/16 12:34 - Medications Medications: Current Medications Aspirin (Aspirin Chewable) 81 mg PO DAILY [facility] Last Admin: 12/03/16 09:16 Dose: 81 mg Atorvastatin Calcium (Lipitor) 20 mg PO HS [facility] Last Admin: 12/02/16 22:18 Dose: 20 mg Calcium Carbonate (Oscal) 500 mg PO DAILY [facility] Last Admin: 12/03/16 09:18 Dose: Not Given Divalproex Sodium (Depakote Dr(*Bid*)) 500 mg PO BID [facility] Last Admin: 12/03/16 16:35 Dose: 500 mg Enoxaparin Sodium (Lovenox) 40 mg SC DAILY [facility] PRN Reason: Protocol Last Admin: 12/03/16 09:19 Dose: Not Given Fluoxetine HCl (Prozac) 40 mg PO DAILY [facility] Last Admin: 12/03/16 09:19 Dose: 40 mg Insulin Detemir (Levemir) 40 units SC [facility] Last Admin: 12/03/16 11:00 Dose: Not Given Insulin Human Lispro (Humalog) 15 units SC ACTID [facility] Last Admin: 12/03/16 16:36 Dose: 15 unit Isosorbide Mononitrate (Imdur) 30 mg PO HS [facility] Last Admin: 12/02/16 22:18 Dose: 30 mg Lisinopril (Zestril) 5 mg PO DAILY [facility] Last Admin: 12/03/16 09:20 Dose: 5 mg Lorazepam (Ativan) 1 mg IVP Q4 PRN PRN Reason: Seizure activity Metoprolol Tartrate (Lopressor) 25 mg PO Q12 [facility] Last Admin: 12/03/16 09:17 Dose: 25 mg Montelukast Sodium (Singulair) 10 mg PO HS [facility] Last Admin: 12/02/16 22:18 Dose: 10 mg Pantoprazole Sodium (Protonix Ec Tab) 40 mg PO DAILY [facility] Last Admin: 12/03/16 09:18 Dose: 40 mg Risperidone (Risperdal Tab) 0.5 mg PO BID [facility] Last Admin: 12/03/16 16:36 Dose: 0.5 mg Physical Exam - Constitutional Appears: Non-toxic - Head Exam Head Exam: NORMAL INSPECTION - Eye Exam Eye Exam: Normal appearance - ENT Exam ENT Exam: Mucous Membranes Moist - Neck Exam Neck exam: Positive for: Full Rom - Respiratory Exam Respiratory Exam: NORMAL BREATHING PATTERN - Cardiovascular Exam Cardiovascular Exam: REGULAR RHYTHM - GI/Abdominal Exam GI & Abdominal Exam: Normal Bowel Sounds - Rectal Exam Rectal Exam: Deferred - Extremities Exam Extremities exam: Negative for: pedal edema - Back Exam Back exam: NORMAL INSPECTION - Psychiatric Exam Psychiatric exam: Normal Affect - Skin Skin Exam: Normal Color Results - Vital Signs Recent Vital Signs: Last Vital Signs Temp 98.6 F 12/03/16 20:30 Pulse 74 12/03/16 20:52 Resp 20 12/03/16 20:30 BP 117/67 12/03/16 20:30 Pulse Ox 97 12/03/16 20:30 - Labs Result Diagrams: 12/03/16 05:30 12/04/16 04:00 Labs: Laboratory Results - last 24 hr 12/02/16 12/02/16 12/02/16 18:53 21:13 21:45 WBC RBC Hgb Hct MCV MCH MCHC RDW Plt Count MPV Neut % (Auto) Lymph % (Auto) [place] % (Auto) Eos % (Auto) Baso % (Auto) Neut # Lymph # [place] # Eos # Baso # Sodium Potassium Chloride Carbon Dioxide Anion Gap BUN Creatinine Est GFR ( Amer) Est GFR (Non-Af Amer) POC Glucose (mg/dL) 250 H 297 H Random Glucose Calcium Troponin I Urine Color Yellow Urine Clarity Clear Urine pH 6.0 Ur Specific [place] 1.059 H Urine Protein >=500 Urine Glucose (UA) >=500 Urine Ketones 80 Urine Blood Negative Urine Nitrate Negative Urine Bilirubin Negative Urine Urobilinogen 0.2-1.0 Ur Leukocyte Esterase Neg Urine RBC (Auto) 2 Urine Microscopic WBC < 1 Ur Squamous Epith Cells 1 Urine Opiates Screen Positive H Urine Methadone Screen Negative Ur Barbiturates Screen Negative Ur Phencyclidine Scrn Negative Ur Amphetamines Screen Negative U Benzodiazepines Scrn Negative U Oth Cocaine Metabols Negative U Cannabinoids Screen Negative 12/03/16 12/03/16 12/03/16 05:30 07:58 12:26 WBC 18.1 H RBC 5.06 Hgb 11.5 L Hct 37.4 MCV 74.0 L MCH 22.7 L MCHC 30.7 L RDW 16.8 H Plt Count 450 H MPV 8.6 Neut % (Auto) 70.7 Lymph % (Auto) 21.0 [place] % (Auto) 7.9 Eos % (Auto) 0.0 Baso % (Auto) 0.4 Neut # 12.8 H Lymph # 3.8 [place] # 1.4 H Eos # 0.0 Baso # 0.1 Sodium 144 Potassium 3.1 L Chloride 104 Carbon Dioxide 21 L Anion Gap 22 H BUN 15 Creatinine 0.4 L Est GFR ( Amer) > 60 Est GFR (Non-Af Amer) > 60 POC Glucose (mg/dL) 288 H 198 H Random Glucose 296 H Calcium 9.5 Troponin I < 0.0120 Urine Color Urine Clarity Urine pH Ur Specific [place] Urine Protein Urine Glucose (UA) Urine Ketones Urine Blood Urine Nitrate Urine Bilirubin Urine Urobilinogen Ur Leukocyte Esterase Urine RBC (Auto) Urine Microscopic WBC Ur Squamous Epith Cells Urine Opiates Screen Urine Methadone Screen Ur Barbiturates Screen Ur Phencyclidine Scrn Ur Amphetamines Screen U Benzodiazepines Scrn U Oth Cocaine Metabols U Cannabinoids Screen 12/03/16 15:54 WBC RBC Hgb Hct MCV MCH MCHC RDW Plt Count MPV Neut % (Auto) Lymph % (Auto) [place] % (Auto) Eos % (Auto) Baso % (Auto) Neut # Lymph # [place] # Eos # Baso # Sodium Potassium Chloride Carbon Dioxide Anion Gap BUN Creatinine Est GFR ( Amer) Est GFR (Non-Af Amer) POC Glucose (mg/dL) 250 H Random Glucose Calcium Troponin I Urine Color Urine Clarity Urine pH Ur Specific [place] Urine Protein Urine Glucose (UA) Urine Ketones Urine Blood Urine Nitrate Urine Bilirubin Urine Urobilinogen Ur Leukocyte Esterase Urine RBC (Auto) Urine Microscopic WBC Ur Squamous Epith Cells Urine Opiates Screen Urine Methadone Screen Ur Barbiturates Screen Ur Phencyclidine Scrn Ur Amphetamines Screen U Benzodiazepines Scrn U Oth Cocaine Metabols U Cannabinoids Screen - EKG Data EKG Interpreted by: Myself Assessment & Plan (1) HTN (hypertension) Assessment and Plan: will continue betablocker Status: Chronic (2) Syncope Assessment and Plan: will assess for arrhythmia. AICD interrogation Status: Acute (3) Dilated cardiomyopathy Assessment and Plan: s/p AICD Status: Acute
[2016-12-04 05:10] LABS: BLOOD UREA NITROGEN 14 mg/dl (7-17); CALCIUM 9.4 mg/dL (8.4-10.2); CARBON DIOXIDE 24 mmol/L (22-30); CHLORIDE 103 mmol/L (98-107); GFR AFRICAN-AMERICAN > 60; GLUCOSE,RANDOM 272 mg/dL (65-105); POTASSIUM 2.8 MMOL/L (3.6-5.0); SODIUM 140 mmol/l (132-148)
[2016-12-04] MEDS ORDERED: Potassium Chloride 20 mEq ER Tab PO STA (07:24)
[2016-12-04] MEDS: Potassium CL 10 MEQ/50 ML 50 ML IVPB SCH ×4 (07:39→11:56)
[2016-12-04] MEDS: Insulin Lispro (humaLOG) 100 Units/ml Inj SC SCH ×3 (08:30→16:38)
[2016-12-04] MEDS: Divalproex 500 mg DR(BID formulation) PO SCH ×2 (08:35→16:38)
[2016-12-04] MEDS: Enoxaparin 40 mg Syringe SC SCH (08:38)
[2016-12-04] MEDS: Pantoprazole 40 mg EC Tab PO SCH (08:39)
--- NOTE | 2016-12-04 18:28 | PN ---
DATE: 12/04/2016 SUBJECTIVE: The patient is seen today, 12/04/2016. She is not in any cardiopulmonary distress and n o further seizures on current medications. PHYSICAL EXAMINATION: VITAL SIGNS: Blood pressure is 131/73, temperature 98.5, respiratory rate 20, and pulse 76. HEENT: Pupils equal, reactive to light. Normal-appearing mucosa of the conjunctivae, oropharyngeal and nasal membrane mucosa. NECK: Supple, no JVD, no carotid bruit, no lymph node, no thyromegaly. CHEST AND LUNGS: Bilateral symmetrical expansion, good air exchange, no rales, no rhonchi. CARDIOVASCULAR: PMI not localized. S1, S2. No additional sounds. ABDOMEN: Normoactive bowel sounds, no tenderness, no organomegaly, no masses. EXTREMITIES: No cyanosis, no clubbing, no edema. CENTRAL NERVOUS SYSTEM: Alert, awake, oriented x 2. No neurological deficits could be appreciated. ASSESSMENT: 1. New onset seizure. 2. Hypertension. 3. Type 2 diabetes mellitus. 4. Longstanding psychiatric history. PLAN: Continue current anti-seizure medications, follow up recommendations of the consultants and co ntinue current medicines. Jeanne Fajardo MD cc: [phone] TT: 12/04/2016 18:27:48 Confirmation # [id number] Dictation # [id number]
--- NOTE | 2016-12-04 18:38 | CP.PCM.PN ---
Subjective - Date & Time of Evaluation Date of Evaluation: 12/04/16 Time of Evaluation: 18:35 - Subjective Subjective: interrogation performed today of AICD. no arrhythmia. patient's presentation is not cardiac in origin. please reconsult as necessary Objective - Vital Signs/Intake and Output Vital Signs (last 24 hours): Temp Pulse Resp BP Pulse Ox 98.5 F 76 20 131/73 99 12/04/16 16:01 12/04/16 16:01 12/04/16 16:01 12/04/16 16:01 12/04/16 16:01 - Medications Medications: Current Medications Aspirin (Aspirin Chewable) 81 mg PO DAILY [facility] Last Admin: 12/04/16 08:34 Dose: 81 mg Atorvastatin Calcium (Lipitor) 20 mg PO [facility] Last Admin: 12/03/16 21:44 Dose: 20 mg Calcium Carbonate (Oscal) 500 mg PO DAILY [facility] Last Admin: 12/04/16 08:38 Dose: 500 mg Divalproex Sodium (Depakote Dr(*Bid*)) 500 mg PO BID [facility] Last Admin: 12/04/16 16:38 Dose: 500 mg Enoxaparin Sodium (Lovenox) 40 mg SC DAILY [facility] PRN Reason: Protocol Last Admin: 12/04/16 08:38 Dose: Not Given Fluoxetine HCl (Prozac) 40 mg PO DAILY [facility] Last Admin: 12/04/16 08:39 Dose: 40 mg Insulin Detemir (Levemir) 40 units SC HS [facility] Last Admin: 12/03/16 21:42 Dose: 40 units Insulin Human Lispro (Humalog) 15 units SC ACTID [facility] Last Admin: 12/04/16 16:38 Dose: 15 unit Isosorbide Mononitrate (Imdur) 30 mg PO HS [facility] Last Admin: 12/03/16 21:41 Dose: 30 mg Lisinopril (Zestril) 5 mg PO DAILY [facility] Last Admin: 12/04/16 08:40 Dose: 5 mg Lorazepam (Ativan) 1 mg IVP Q4 PRN PRN Reason: Seizure activity Metformin HCl (Glucophage) 850 mg PO BIDWM [facility] Metoprolol Tartrate (Lopressor) 25 mg PO Q12 [facility] Last Admin: 12/04/16 08:36 Dose: 25 mg Montelukast Sodium (Singulair) 10 mg PO [facility] Last Admin: 04/16/17 21:42 Dose: 10 mg Pantoprazole Sodium (Protonix Ec Tab) 40 mg PO DAILY [facility] Last Admin: 12/04/16 08:39 Dose: 40 mg Risperidone (Risperdal Tab) 0.5 mg PO BID [facility] Last Admin: 12/04/16 16:39 Dose: 0.5 mg - Labs Labs: 12/03/16 05:30 12/04/16 04:00 PT 11.2 SECONDS (9.6-11.2) 12/02/16 12:05 INR 1.08 (0.92-1.08) 12/02/16 12:05 APTT 21.9 SECONDS (23.3-32.5) L 12/02/16 12:05 Assessment and Plan (1) HTN (hypertension) Status: Chronic (2) Syncope Status: Acute (3) Dilated cardiomyopathy Status: Acute
[2016-12-04 19:27] LABS: ABG ALLEN TEST YES; ARTERIAL BLOOD GAS HCO3 24.1 mmol/L (21-28); ARTERIAL BLOOD GAS O2 CAPACITY 16.6 mL/dL (16-24); ARTERIAL BLOOD GAS O2 CONTENT 16.3 ML/dL (15-23); ARTERIAL BLOOD GAS PH 7.48 (7.35-7.45); ARTERIAL BLOOD GAS PO2 90 mm/Hg (80-100); CARBOXYHEMOGLOBIN 1.5 % (0.5-1.5); HHB 1.9 % (0.0-5.0); METHEMOGLOBIN 1.6 % (0.0-3.0)
[2016-12-04] MEDS: Insulin Detemir 100 Units/ml Inj SC SCH (21:48)
[2016-12-05] MEDS ORDERED: Oxycodone/Acetaminophen 5/325 mg Tab PO ONE (01:05)
[2016-12-05 07:46] LABS: ALB/GLOB RATIO 1.1 (1.0-2.1); ALKALINE PHOSPHATASE 86 U/L (38-126); ALT/SGPT 27 U/L (9-52); AST/SGOT 30 U/L (14-36); BILIRUBIN,TOTAL 0.6 mg/dl (0.2-1.3); BLOOD UREA NITROGEN 15 mg/dl (7-17); CALCIUM 9.2 mg/dL (8.4-10.2); CARBON DIOXIDE 26 mmol/L (22-30); CHLORIDE 102 mmol/L (98-107); GFR AFRICAN-AMERICAN > 60; GLUCOSE,RANDOM 295 mg/dL (65-105); MAGNESIUM 1.8 MG/DL (1.6-2.3); POTASSIUM 3.3 MMOL/L (3.6-5.0); SODIUM 143 mmol/l (132-148); TOTAL PROTEIN 7.2 G/DL (6.3-8.2)
[2016-12-05 07:48] LABS: BASO # 0.1 K/uL (0.0-0.2); BASO % 0.5 % (0.0-2.0); EOS # 0.1 K/uL (0.0-0.7); EOS % 0.5 % (0.0-4.0); HEMATOCRIT 36.1 % (34.0-47.0); LYMPH # 3.9 K/uL (1.0-4.3); LYMPH % 31.1 % (20.0-40.0); MEAN CELL VOLUME 74.1 fl (81.0-99.0); MEAN CORPUSCULAR HEMOGLOBIN 23.4 pg (27.0-31.0); MEAN CORPUSCULAR HGB CONC 31.5 g/dL (33.0-37.0); MEAN PLATELET VOLUME 8.7 fl (7.2-11.7); MONO # 0.8 K/uL (0.0-0.8); MONO % 6.4 % (0.0-10.0); NEUT # 7.8 K/uL (1.8-7.0); NEUT % 61.5 % (50.0-75.0); NRBC % 0.2 % (0.0-0.0); RED CELL DISTRIBUTION WIDTH 16.5 % (11.5-14.5); WHITE BLOOD COUNT 12.6 K/uL (4.8-10.8)
[2016-12-05] MEDS: Insulin Lispro (humaLOG) 100 Units/ml Inj SC SCH (08:00)
[2016-12-05] MEDS: Divalproex 500 mg DR(BID formulation) PO SCH (09:10)
[2016-12-05] MEDS: Enoxaparin 40 mg Syringe SC SCH ×2 (09:11→09:25)
[2016-12-05] MEDS: Pantoprazole 40 mg EC Tab PO SCH (09:12)
[2016-12-05] MEDS ORDERED: Potassium Chloride 20 mEq ER Tab PO ONE ×2 (09:57→11:07)
--- NOTE | 2016-12-05 14:27 | DS ---
REASON FOR ADMISSION: This is a 56-year-old female with longstanding psychiatric history an d uncontrolled type 2 diabetes mellitus, was admitted for witnessed seizure. COURSE OF HOSPITALIZATION: The patient was admitted to medical floor, telemetry floor and she was st arted on Depakote. The patient had neurology consultation done and thought was benzodiazepine withdr awal seizures. The patient was taking Xanax. That was stopped suddenly. The patient had no further seizures during this hospitalization. The patient was found also to be hypokalemic with metabolic a lkalosis. The patient also was found to have uncontrolled type 2 diabetes mellitus. Christiano was sta rted as well as patient was discharged on potassium supplement and to follow with her primary care ph ysician for further workup of hypokalemia as well as neurology evaluation for outpatient EEG. 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 Jeanne Fajardo MD cc: [phone] TT: 12/05/2016 14:25:59 en
[2016-12-05 15:47] VITALS: BP 138/69; PULSE 78; RESP 18; TEMP 98.1; O2SAT 97
== END 2016-12-05 16:00 | disposition home or self-care (01) | DRG 101 ==
LOC: H.ER 12:12 → H.ERHOLD 18:27 → H.TEL 12-03 04:38
PROVIDERS: ADMIT Internal Medicine; ATTEND Internal Medicine
DX: G40.89 Other seizures (principal); E87.3 Alkalosis; I42.0 Dilated cardiomyopathy; E11.65 Type 2 diabetes mellitus with hyperglycemia; F29 Unspecified psychosis not due to a substance or known physiological condition; E87.6 Hypokalemia; Z95.0 Presence of cardiac pacemaker; I25.10 Atherosclerotic heart disease of native coronary artery without angina pectoris; Z95.1 Presence of aortocoronary bypass graft; I10 Essential (primary) hypertension; J44.9 Chronic obstructive pulmonary disease, unspecified; F31.9 Bipolar disorder, unspecified; Z87.891 Personal history of nicotine dependence; R55 Syncope and collapse; Z79.899 Other long term (current) drug therapy; Z91.14 Patient's other noncompliance with medication regimen

== ENCOUNTER 2016-12-06 03:37 | Emergency (ER) | payer MEDICARE, MEDICAID ==
[2016-12-06 03:50] VITALS: BP 146/70; PULSE 82; RESP 17; TEMP 98.6; O2SAT 98
[2016-12-06] MEDS ORDERED: Sodium Chloride 0.9% 1,000 ML IV STA (05:17)
--- NOTE | 2016-12-06 06:10 | ED PDOC ---
HPI: General Adult Time Seen by Provider: 12/06/16 03:53 Chief Complaint (Nursing): ENT Problem Chief Complaint (Provider): throat swelling History Per: Patient Additional History Per: Patient Additional Complaint(s): 56 y/o female presents for eval of swelling to throat x 2 hours. Patient states she took a Unisom to help her sleep, woke up a few hours later and felt that her throat was "closing". Patient states her throat felt "numb" and that her whole body was "cyanotic". Denies fever, rash, facial swelling, difficulty speaking, swallowing, chest pain, cough, shortness of breath, nausea/vomiting, abdominal pain. Past Medical History Reviewed: Historical Data, Nursing Documentation, Vital Signs Vital Signs: Last Vital Signs Temp 98.6 F 12/06/16 03:45 Pulse 82 12/06/16 03:45 Resp 17 12/06/16 03:45 BP 146/70 12/06/16 03:45 Pulse Ox 98 12/06/16 03:45 - Medical History PMH: Bipolar Disorder, Cardia Arrhythmia, COPD, Depression, Diabetes, HTN, Seizures Denies: HIV, Chronic Kidney Disease - Surgical History Surgical History: CABG, Cholecystectomy, Pacemaker (left-sided) - Family History Family History: States: Unknown Family Hx - Home Medications Home Medications: Ambulatory Orders Medication Instructions Recorded Calcium Carbonate [Oscal] 1 tab PO BID 12/02/16 FLUoxetine [Prozac] 1 tab PO DAILY 12/02/16 Fluconazole [Diflucan] 1 tab PO DAILY 12/02/16 Isosorbide Mononitrate [Imdur] 1 tab PO DAILY 12/02/16 Metoprolol Tartrate [Lopressor] 1 tab PO DAILY 12/02/16 Morphine [Morphine Immediate 1 tab PO Q12H 12/02/16 Release Tab] Divalproex [Depakote DR (*BID*)] 500 mg PO BID #60 tcp 12/05/16 Insulin Aspart [Novolog Flexpen] 15 units SC TID 30 Days 12/05/16 Insulin Detemir [Levemir] 40 units SC HS 30 Days 12/05/16 Lisinopril [Zestril] 1 tab PO DAILY #30 tab 12/05/16 Montelukast [Singulair] 1 tab PO HS #30 tab 04/18/17 Pantoprazole Sodium [Protonix] 1 tab PO DAILY #30 tablet. 12/05/16 Potassium Chloride [K-Tab ER] 40 meq PO DAILY #7 tablet.er 12/05/16 Risperidone [Risperdal] 0.5 tab PO BID #60 tablet 12/05/16 SITagliptin [Januvia] 100 mg PO DAILY #30 tab 12/05/16 - Allergies Allergies/Adverse Reactions: Allergies Allergy/AdvReac Type Severity Reaction Status Date / Time amitriptyline HCl Allergy ITCHING Verified 12/02/16 12:34 [From Elavil] duloxetine HCl Allergy ITCHING Verified 12/02/16 12:34 [From Cymbalta] gabapentin [From Neurontin] Allergy ITCHING Verified 12/02/16 12:34 metformin Allergy ITCHING Verified 12/02/16 12:34 methotrexate Allergy ITCHING Verified 12/02/16 12:34 soy Allergy ITCHING Verified 12/02/16 12:34 Review of Systems ROS Statement: Except As Marked, All Systems Reviewed And Found Negative ENT: Positive for: Throat Pain Physical Exam - Reviewed Nursing Documentation Reviewed: Yes Vital Signs Reviewed: Yes - Physical Exam Appears: Positive for: Well, Non-toxic, No Acute Distress Head Exam: Positive for: ATRAUMATIC, NORMAL INSPECTION, NORMOCEPHALIC Skin: Positive for: Normal Color Eye Exam: Positive for: Normal appearance ENT: Positive for: Normal ENT Inspection Cardiovascular/Chest: Positive for: Regular Rate, Rhythm Respiratory: Positive for: Normal Breath Sounds Gastrointestinal/Abdominal: Positive for: Normal Exam Extremity: Positive for: Normal ROM Neurologic/Psych: Positive for: Alert, Oriented - ECG O2 Sat by Pulse Oximetry: 98 - Progress ED Course And Treament: prednisone PO accucheck >300; labs, IV fluids, urine ordered Disposition - Clinical Impression Clinical Impression: Adverse effect of drug, Hyperglycemia - Disposition Disposition: Transfer of Care Disposition Time: 06:10 Condition: STABLE Patient Signed Over To: Dawood Pierre Handoff Comments: pending labs, urine, repeat accu
[2016-12-06 06:17] LABS: RBC URINE < 1 /hpf (0-3); URINE BILIRUBIN NEGATIVE (NEGATIVE); URINE BLOOD NEGATIVE (NEGATIVE); URINE COLOR YELLOW (YELLOW); URINE GLUCOSE (UA) >=500 mg/dL (Normal); URINE KETONE 20 mg/dL (NEGATIVE); URINE LEUKOCYTE ESTERASE NEG Leu/uL (Negative); URINE PROTEIN NEGATIVE (NEGATIVE); URINE UROBILINOGEN 0.2-1.0 mg/dL (0.2-1.0); WBC URINE < 1 /hpf (0-5)
--- NOTE | 2016-12-06 06:23 | ED PDOC ---
- Laboratory Results Result Diagrams: 12/06/16 05:50 12/06/16 05:50 - ECG O2 Sat by Pulse Oximetry: 98 Medical Decision Making Medical Decision Making: Patient s/o from [facility] [place] PA-C at 0600 pending labs and urine. 7am: pending swabs and reassessment. will sign out to dr. cabrera. Scribe Attestation: Documented by Alexus Duque acting as a scribe for Dawood Pierre MD. Provider Scribe Attestation: All medical record entries made by the Scribe were at my direction and personally dictated by me. I have reviewed the chart and agree that the record accurately reflects my personal performance of the history, physical exam, medical decision making, and the department course for this patient. I have also personally directed, reviewed, and agree with the discharge instructions and disposition. Disposition - Clinical Impression Clinical Impression: Medication reaction, Hyperglycemia - POA Present On Arrival: None - Disposition Disposition: Transfer of Care Disposition Time: 07:00 Condition: STABLE Patient Signed Over To: Zoey Cabrera
[2016-12-06 06:31] LABS: ALB/GLOB RATIO 1.1 (1.0-2.1); ALKALINE PHOSPHATASE 98 U/L (38-126); ALT/SGPT 31 U/L (9-52); AST/SGOT 33 U/L (14-36); BILIRUBIN,TOTAL 0.6 mg/dl (0.2-1.3); BLOOD UREA NITROGEN 16 mg/dl (7-17); CALCIUM 9.6 mg/dL (8.4-10.2); CARBON DIOXIDE 25 mmol/L (22-30); CHLORIDE 101 mmol/L (98-107); GFR AFRICAN-AMERICAN > 60; GLUCOSE,RANDOM 315 mg/dL (65-105); POTASSIUM 3.4 MMOL/L (3.6-5.0); SODIUM 143 mmol/l (132-148); TOTAL PROTEIN 8.1 G/DL (6.3-8.2)
[2016-12-06 06:47] LABS: BASO # 0.1 K/uL (0.0-0.2); BASO % 0.5 % (0.0-2.0); EOS % 0.1 % (0.0-4.0); HEMATOCRIT 39.4 % (34.0-47.0); LYMPH # 3.2 K/uL (1.0-4.3); LYMPH % 21.6 % (20.0-40.0); MEAN CELL VOLUME 74.3 fl (81.0-99.0); MEAN CORPUSCULAR HEMOGLOBIN 23.7 pg (27.0-31.0); MEAN CORPUSCULAR HGB CONC 31.9 g/dL (33.0-37.0); MEAN PLATELET VOLUME 8.8 fl (7.2-11.7); MONO # 0.9 K/uL (0.0-0.8); MONO % 6.3 % (0.0-10.0); NEUT # 10.7 K/uL (1.8-7.0); NEUT % 71.5 % (50.0-75.0); NRBC % 0.1 % (0.0-0.0); RED CELL DISTRIBUTION WIDTH 17.2 % (11.5-14.5)
[2016-12-06] MEDS ORDERED: Insulin Regular 100 units/ml SC STA (07:31)
--- NOTE | 2016-12-06 07:36 | ED PDOC ---
- Laboratory Results Result Diagrams: 12/06/16 05:50 12/06/16 05:50 - ECG O2 Sat by Pulse Oximetry: 98 Medical Decision Making Medical Decision Makin signed over to me by Alexus Pierre MD pending swabs, reassessment. 1000: patient feeling better. She denied suicidal ideation and is not presently suicidal. She took the unisom for sleep only. Her sugar remains high. She did not take Lantus (40-45u) last night and usually taken Novolog 15u TID and checks her own sugars 4-5 times/day. Disposition Doctor Will See Patient In The: Office Counseled Patient/Family Regarding: Diagnosis, Need For Followup - Clinical Impression Clinical Impression: Medication reaction, Hyperglycemia - POA Present On Arrival: None - Disposition Referrals: Jeanne Fajardo MD [Staff Provider] - Disposition: Routine/Home Disposition Time: 10:38 Condition: STABLE Instructions: Diabetes Mellitus Type 2 in Adults (ED), Diabetic Hyperglycemia ( ED) Additional Comments - Additional Comments Additional Comments: Scribe Attestation: Documented by Mj Pickens acting as a scribe for Zoey Dodson MD. Provider Scribe Attestation: All medical record entries made by the Scribe were at my direction and personally dictated by me. I have reviewed the chart and agree that the record accurately reflects my personal performance of the history, physical exam, medical decision making, and the department course for this patient. I have also personally directed, reviewed, and agree with the discharge instructions and disposition.
[2016-12-06 08:06] LABS: VENOUS BLOOD GAS BASE EXCESS 0.4 mmol/L (0.0-2.0); VENOUS BLOOD GAS PCO2 37 mmHg (40-60); VENOUS BLOOD PH 7.43 (7.32-7.43)
== END 2016-12-06 12:34 | disposition home or self-care (01) ==
LOC: H.ER 03:37
DX: E11.65 Type 2 diabetes mellitus with hyperglycemia (principal); T45.0X5A Adverse effect of antiallergic and antiemetic drugs, initial encounter; Y92.89 Other specified places as the place of occurrence of the external cause

== ENCOUNTER 2016-12-06 21:10 | Inpatient (IN) | payer MEDICARE, MEDICAID ==
[2016-12-06] MEDS ORDERED: Sodium Chloride 0.9% 500 ML IV STA (21:32)
[2016-12-06] MEDS ORDERED: Alum-Mag Hydrox-Simethicone Susp (30 mL) PO STA (21:33)
[2016-12-06] MEDS ORDERED: Alum-Mag Hydrox-Simethicone Susp (30 mL) ONE (21:38)
[2016-12-06 21:49] LABS: BASO # 0.1 K/uL (0.0-0.2); BASO % 0.8 % (0.0-2.0); EOS % 0.2 % (0.0-4.0); HEMATOCRIT 39.9 % (34.0-47.0); LYMPH # 3.6 K/uL (1.0-4.3); LYMPH % 23.4 % (20.0-40.0); MEAN CELL VOLUME 75.6 fl (81.0-99.0); MEAN CORPUSCULAR HEMOGLOBIN 23.3 pg (27.0-31.0); MEAN CORPUSCULAR HGB CONC 30.8 g/dL (33.0-37.0); MEAN PLATELET VOLUME 8.7 fl (7.2-11.7); MONO # 1.1 K/uL (0.0-0.8); MONO % 7.1 % (0.0-10.0); NEUT # 10.7 K/uL (1.8-7.0); NEUT % 68.5 % (50.0-75.0); NRBC % 0.1 % (0.0-0.0); WHITE BLOOD COUNT 15.6 K/uL (4.8-10.8)
[2016-12-06 22:10] LABS: ALB/GLOB RATIO 1.1 (1.0-2.1); ALKALINE PHOSPHATASE 103 U/L (38-126); ALT/SGPT 30 U/L (9-52); AST/SGOT 31 U/L (14-36); BILIRUBIN,TOTAL 0.5 mg/dl (0.2-1.3); BLOOD UREA NITROGEN 13 mg/dl (7-17); CARBON DIOXIDE 19 mmol/L (22-30); CHLORIDE 104 mmol/L (98-107); GFR AFRICAN-AMERICAN > 60; GLUCOSE,RANDOM 326 mg/dL (65-105); LIPASE 225 U/L (23-300); MAGNESIUM 1.7 MG/DL (1.6-2.3); PHOSPHOROUS 3.9 mg/dl (2.5-4.5); POTASSIUM 3.5 MMOL/L (3.6-5.0); SODIUM 145 mmol/l (132-148)
[2016-12-06] MEDS ORDERED: Sodium Chloride 0.9% 1,000 ML IV STA (22:22)
--- NOTE | 2016-12-06 22:49 | ED PDOC ---
HPI: Abdomen Time Seen by Provider: 12/06/16 21:15 Chief Complaint (Nursing): Medical Clearance Chief Complaint (Provider): abdominal pain History/Exam Limitations: no limitations Onset/Duration Of Symptoms: Days (2), Waxing/Waning, Persistent Current Symptoms Are (Timing): Still Present Location Of Pain/Discomfort: Epigastric Quality Of Discomfort: "Pain" Associated Symptoms: Fever, Chills, Nausea, Loss Of Appetite, Urinary Symptoms ( frequency). denies: Vomiting, Diarrhea, Chest Pain Exacerbating Factors: Movement Alleviating Factors: None Additional Complaint(s): Pt reporting increasing abdominal pain for 2 days constant, similar to episodes of her "gastritis" but worse. Seen in this ER 12/02 for seizure, altered mental status, and abdominal pain and discharged yesterday. Presented earlier to day for throat pain and chills and discharged. She reports she feels like she is only getting worse. Past Medical History Reviewed: Historical Data, Nursing Documentation, Vital Signs Vital Signs: Last Vital Signs Temp 98.3 F 12/07/16 16: Pulse 83 12/07/16 16:27 Resp 18 12/07/16 16:17 BP 135/76 12/07/16 16:27 Pulse Ox 96 12/07/16 16:17 - Medical History PMH: Bipolar Disorder, Cardia Arrhythmia, COPD, Depression, Diabetes, HTN, Seizures Denies: Chronic Kidney Disease - Surgical History Surgical History: CABG, Cholecystectomy, Pacemaker (left-sided) - Family History Family History: States: Unknown Family Hx - Social History Current smoker - smoking cessation education provided: Yes - Home Medications Home Medications: Ambulatory Orders Medication Instructions Recorded Calcium Carbonate [Oscal] 1 tab PO BID 12/02/16 FLUoxetine [Prozac] 1 tab PO DAILY 12/02/16 Fluconazole [Diflucan] 1 tab PO DAILY 12/02/16 Isosorbide Mononitrate [Imdur] 1 tab PO DAILY 12/02/16 Metoprolol Tartrate [Lopressor] 1 tab PO DAILY 12/02/16 Morphine [Morphine Immediate 1 tab PO Q12H 12/02/16 Release Tab] Divalproex [Depakote DR (*BID*)] 500 mg PO BID #60 tcp 12/05/16 Insulin Aspart [Novolog Flexpen] 15 units SC TID 30 Days 12/05/16 Insulin Detemir [Levemir] 40 units SC HS 30 Days 12/05/16 Lisinopril [Zestril] 1 tab PO DAILY #30 tab 12/05/16 Montelukast [Singulair] 1 tab PO HS #30 tab 12/05/16 Pantoprazole Sodium [Protonix] 1 tab PO DAILY #30 tablet. 12/05/16 Potassium Chloride [K-Tab ER] 40 meq PO DAILY #7 tablet.er 12/05/16 Risperidone [Risperdal] 0.5 tab PO BID #60 tablet 12/05/16 SITagliptin [Januvia] 100 mg PO DAILY #30 tab 12/05/16 - Allergies Allergies/Adverse Reactions: Allergies Allergy/AdvReac Type Severity Reaction Status Date / Time amitriptyline HCl Allergy ITCHING Verified 12/06/16 21:12 [From Elavil] duloxetine HCl Allergy ITCHING Verified 12/06/16 21:12 [From Cymbalta] gabapentin [From Neurontin] Allergy ITCHING Verified 12/06/16 21:12 metformin Allergy ITCHING Verified 12/06/16 21:12 methotrexate Allergy ITCHING Verified 12/06/16 21:12 soy Allergy ITCHING Verified 12/06/16 21:12 Review of Systems ROS Statement: Except As Marked, All Systems Reviewed And Found Negative (and as per HPI) Constitutional: Positive for: Fever, Chills, Malaise Cardiovascular: Negative for: Chest Pain Respiratory: Negative for: Shortness of Breath Gastrointestinal: Positive for: Nausea, Abdominal Pain. Negative for: Vomiting , Diarrhea, Melena, Hematochezia, Hematemesis Genitourinary Female: Positive for: Frequency. Negative for: Dysuria Neurological: Positive for: Dizziness Psych: Positive for: Anxiety Physical Exam - Reviewed Nursing Documentation Reviewed: Yes Vital Signs Reviewed: Yes - Physical Exam Appears: Positive for: Uncomfortable, In Acute Distress Head Exam: Positive for: ATRAUMATIC, NORMOCEPHALIC Skin: Positive for: Warm, Dry Eye Exam: Positive for: EOMI, PERRL ENT: Positive for: Other (dry mucus membranes) Neck: Positive for: Painless ROM, Supple Cardiovascular/Chest: Positive for: Chest Non Tender, Tachycardia. Negative for : Edema, Murmur Respiratory: Positive for: Normal Breath Sounds. Negative for: Wheezing, Respiratory Distress Gastrointestinal/Abdominal: Positive for: Bowel Sounds, Soft, Tenderness. Negative for: Mass, Distended, Guarding, Rebound Back: Positive for: Normal Inspection. Negative for: Decreased ROM Extremity: Positive for: Normal ROM. Negative for: Pedal Edema Lymphatic: Negative for: Adenopathy Neurologic/Psych: Positive for: Alert, Mood/Affect (mildly anxious). Negative for: Motor/Sensory Deficits - Laboratory Results Result Diagrams: 12/07/16 04:10 12/07/16 04:10 Interpretation Of Abn Labs: Elevated WBC, elevated glucose with anion gap and mildly decrease bicarb. Elevated lactic acid. - ECG O2 Sat by Pulse Oximetry: 98 Pulse Ox Interpretation: Normal - Radiology X-Ray: Interpreted by Ok X-Ray Interpretation: No Acute Disease - Critical Care Total Time (In Min): 30 Documented Critical Care: Time excludes all time spent performint seperately billable procedures Medical Decision Making Medical Decision Making: Abdominal pain, leukocytosis, hyperglycemia with ketosis without acidosis. Lactic acidosis, without improvement with IVF hydration. Pt was given IVF, morphine, IV Zosyn, GI cocktail. Symptoms and clinical picture persisting, except pain is slightly improved. [facility] for hospitalization. Disposition - Clinical Impression Clinical Impression: Hyperglycemia, Dehydration, Lactic acidosis Discussed With .: Jagdish [facility] Doctor Will See Patient In The: Hospital Counseled Patient/Family Regarding: Studies Performed, Diagnosis - Disposition Disposition Time: 23:00 Condition: GUARDED - Pt Status Changed To: Hospital Disposition Of: Inpatient - Admit Certification Admit to Inpatient:: After my assessment, the patient will require hospitalization for at least two midnights. This is because of the severity of symptoms shown, intensity of services needed, and/or the medical risk in this patient being treated as an outpatient. - POA Present On Arrival: Poor Glycemic Control
[2016-12-06 23:21] LABS: ABG ALLEN TEST YES; ARTERIAL BLOOD GAS HCO3 23.7 mmol/L (21-28); ARTERIAL BLOOD GAS PH 7.46 (7.35-7.45); ARTERIAL BLOOD GAS PO2 72 mm/Hg (80-100)
[2016-12-06] MEDS ORDERED: Piperacillin/Tazobact 3.375 GM in Sodium Chloride 0.9% 100 ML IVPB STA (23:27)
[2016-12-06] MEDS ORDERED: Sodium Chloride 0.9% 50 ML IV ONE (23:31)
[2016-12-06] MEDS ORDERED: Iohexol 300 100 ML IJ ONE (23:31)
--- NOTE | 2016-12-07 00:20 | CT ---
EXAM: CT Abdomen and Pelvis With Intravenous Contrast CLINICAL HISTORY: 56 years old, female; Pain; Abdominal pain; Generalized; Prior surgery; Surgery date: 6+ months; Surgery type: . Gall bladder removed cabg. Pacemaker; Additional info: Abd pain TECHNIQUE: Axial computed tomography images of the abdomen and pelvis with intravenous contrast. Coronal and sagittal reformatted images were created and reviewed. CONTRAST: 95 mL of [id number] administered intravenously. COMPARISON: CT - ABD PELVIS IV CONTRAST ONLY 12/02/2016 5:53:09 PM FINDINGS: Lower thorax: The bilateral lung bases are clear. ABDOMEN: Liver: No acute findings. Gallbladder and bile ducts: The gallbladder is surgically absent. No significant intra- or extrahepatic biliary ductal dilation. Pancreas: Enhances homogeneously. No ductal dilation. No discrete mass. Spleen: No acute findings. Adrenals: No acute findings. Kidneys and ureters: No acute findings. No hydronephrosis or renal calculi. No discrete solid mass. PELVIS: Bladder: No acute findings. Reproductive: A 3.3 cm focus of decreased attenuation is identified within the left adnexa, statistically a cyst. Appendix: The air filled appendix is of normal caliber (series 3, image 136) . ABDOMEN and PELVIS: Stomach and bowel: No obstruction. No mucosal thickening. A fat containing umbilical hernia is identified. Peritoneum: No significant fluid collection. No free air. Lymph nodes: No pathologically enlarged lymph nodes. Vasculature: A rounded 7.5 mm calcified focus is identified within the right renal pelvis, possibly a small calcified aneurysm, unchanged from 12/02/2016. Bones: No acute fracture. IMPRESSION: Left adnexal cyst, measuring 3.3 cm in greatest dimension. 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 Fat containing umbilical hernia.
[2016-12-07] MEDS ORDERED: Sodium Chloride 0.9% 1,000 ML IV STA ×2 (00:30→00:35)
[2016-12-07] MEDS ORDERED: Potassium Chloride 20 mEq ER Tab PO STA (00:30)
[2016-12-07 05:29] LABS: HEMATOCRIT 34.7 % (34.0-47.0); MEAN CELL VOLUME 75.1 fl (81.0-99.0); MEAN CORPUSCULAR HEMOGLOBIN 23.3 pg (27.0-31.0); RED CELL DISTRIBUTION WIDTH 16.8 % (11.5-14.5); WHITE BLOOD COUNT 12.9 K/uL (4.8-10.8)
[2016-12-07 05:41] LABS: ALB/GLOB RATIO 1.1 (1.0-2.1); ALKALINE PHOSPHATASE 81 U/L (38-126); ALT/SGPT 28 U/L (9-52); AST/SGOT 22 U/L (14-36); BILIRUBIN,TOTAL 0.4 mg/dl (0.2-1.3); BLOOD UREA NITROGEN 10 mg/dl (7-17); CALCIUM 8.5 mg/dL (8.4-10.2); CARBON DIOXIDE 22 mmol/L (22-30); CHLORIDE 108 mmol/L (98-107); CHOLESTEROL 135 mg/dL (0-199); GFR AFRICAN-AMERICAN > 60; GLUCOSE,RANDOM 225 mg/dL (65-105); POTASSIUM 3.5 MMOL/L (3.6-5.0); SODIUM 144 mmol/l (132-148); TOTAL PROTEIN 6.5 G/DL (6.3-8.2)
[2016-12-07 05:54] LABS: T4 8.82 ug/dl (5.5-11.0)
[2016-12-07 06:07] LABS: THYROID STIMULATING HORMONE 1.27 mIU/ML (0.46-4.68)
[2016-12-07] MEDS: Insulin Lispro (humaLOG) 100 Units/ml Inj SC SCH ×4 (07:01→21:48)
[2016-12-07] MEDS: Divalproex 500 mg DR(BID formulation) PO SCH ×2 (08:30→16:25)
[2016-12-07] MEDS: Pantoprazole 40 mg EC Tab PO SCH (08:32)
[2016-12-07] MEDS: Potassium Chloride 20 mEq ER Tab PO SCH (08:32)
[2016-12-07] MEDS ORDERED: POTASSIUM CHLORIDE 40 MEQ PO SCH (09:00)
[2016-12-07 12:34] LABS: RBC URINE 1 /hpf (0-3); URINE BILIRUBIN NEGATIVE (NEGATIVE); URINE BLOOD NEGATIVE (NEGATIVE); URINE COLOR STRAW (YELLOW); URINE GLUCOSE (UA) >=500 mg/dL (Normal); URINE KETONE TRACE mg/dL (NEGATIVE); URINE LEUKOCYTE ESTERASE NEG Leu/uL (Negative); URINE PROTEIN NEGATIVE (NEGATIVE); URINE UROBILINOGEN 0.2-1.0 mg/dL (0.2-1.0); WBC URINE 1 /hpf (0-5)
--- NOTE | 2016-12-07 12:40 | CP.PCM.HP ---
History of Present Illness - History of Present Illness History of Present Illness: CC: Abdominal pain. 56 y/o F, presented in ER [facility] to be evaluated for abdominal pain, onset 2 days [employer] with no relief. Pt c/o of increased generalized abdominal pain, prominent in the epigastric area on DOA, pain was persistence, moderate to severe intensity 7:10 associated to nausea, denied vomiting, diarrhea. Worsening symptoms: Fever tactile at home , chills, dizziness, body ache, poor appetite. Aggravating factor: Movements, Obesity( BMI 33.3). Hx of been seen in ER [facility] same date 12/06/16 in AM for adverse effect of Drug, Hyperglycemia (Accucheck > 300), Pt did not compliance with the Levemir night [employer]. After evaluation, Pt was discharged same day at 10:30 AM in stable condition to f/u with PMD. Also admitted to [facility] on 12/02/16 to 12/04/16 for Seizure, Syncope, AMS, Abdominal pain.vomiting, diarrhea, Pt denied:Chills, vomiting, diarrhea, syncope,seizure , melena, CP, SOB, cough , hematuria, weakness, sick contact, recent travel. PMHx: COPD, DMII, HTN, Cardiac Arrhythmia, Bipolar Disorder, Depression, Obesity. Hx of CABG, L Pacemaker. CT Abd/Pelv: L adnexal Cyst. Calcified aneurysm L renal pelvis. Umbilical hernia. WBC: 12.9 Lactic Acid: 7.4 Present on Admission - Present on Admission Any Indicators Present on Admission: Yes History of Uncontrolled Diabetes: Yes Review of Systems - Constitutional Constitutional: Chills (at home), Fever (tactile at home) - EENT Eyes: Other Visual Disturbances Ears: Other (negative) Nose/Mouth/Throat: Other (negative) - Cardiovascular Cardiovascular: Other (negative) - Respiratory Respiratory: Other (negative) - Gastrointestinal Gastrointestinal: Abdominal Pain, Nausea - Genitourinary Genitourinary: Urinary Frequency - Musculoskeletal Musculoskeletal: Other (Body ache) - Integumentary Integumentary: Other (negative) - Neurological Neurological: Dizziness - Psychiatric Psychiatric: Anxiety - Endocrine Additional Comments: Obesity - Hematologic/Lymphatic Hematologic: Other (negative) Past Patient History - Past Medical History & Family History Past Medical History?: Yes Pertinent Family History: Unknown - Past Social History Smoking Status: Former Smoker Alcohol: None Drugs: Denies Home Situation {Lives}: With Family - CARDIAC Hx Cardiac Disorders: Yes Hx Cardia Arrhythmia: Yes Hx Hypertension: Yes Hx Pacemaker: Yes - PULMONARY Hx Respiratory Disorders: Yes Hx Chronic Obstructive Pulmonary Disease (COPD): Yes - NEUROLOGICAL Hx Neurological Disorder: Yes Hx Seizures: Yes - HEENT Hx HEENT Problems: No - RENAL Hx Chronic Kidney Disease: No - ENDOCRINE/METABOLIC Hx Endocrine Disorders: Yes Hx Diabetes Mellitus Type 2: Yes - HEMATOLOGICAL/ONCOLOGICAL Hx Blood Disorders: No Hx Human Immunodeficiency Virus (HIV): No - INTEGUMENTARY Hx Dermatological Problems: No - MUSCULOSKELETAL/RHEUMATOLOGICAL Hx Falls: Yes - GASTROINTESTINAL Hx Gastrointestinal Disorders: No - GENITOURINARY/GYNECOLOGICAL Hx Genitourinary Disorders: No - PSYCHIATRIC Hx Psychophysiologic Disorder: Yes Hx Bipolar Disorder: Yes Hx Depression: Yes Hx Substance Use: No - SURGICAL HISTORY Hx Surgeries: Yes Hx Cholecystectomy: Yes Hx Coronary Artery Bypass Graft: Yes - ANESTHESIA Hx Anesthesia: Yes Hx Anesthesia Reactions: No Meds Allergies/Adverse Reactions: Allergies Allergy/AdvReac Type Severity Reaction Status Date / Time amitriptyline HCl Allergy ITCHING Verified 12/06/16 21:12 [From Elavil] duloxetine HCl Allergy ITCHING Verified 12/06/16 21:12 [From Cymbalta] gabapentin [From Neurontin] Allergy ITCHING Verified 12/06/16 21:12 metformin Allergy ITCHING Verified 12/06/16 21:12 methotrexate Allergy ITCHING Verified 12/06/16 21:12 soy Allergy ITCHING Verified 12/06/16 21:12 Physical Exam - Constitutional Appears: No Acute Distress - Head Exam Head Exam: NORMAL INSPECTION - Eye Exam Eye Exam: PERRL - ENT Exam ENT Exam: Normal Oropharynx - Neck Exam Neck exam: Positive for: Normal Inspection - Respiratory Exam Respiratory Exam: NORMAL BREATHING PATTERN - Cardiovascular Exam Cardiovascular Exam: REGULAR RHYTHM Additional comments: PPM - GI/Abdominal Exam GI & Abdominal Exam: Normal Bowel Sounds, Soft, Tenderness (epigastric area). absent: Guarding, Rebound - Extremities Exam Extremities exam: Positive for: normal inspection - Back Exam Back exam: NORMAL INSPECTION - Neurological Exam Neurological exam: Alert, Oriented x3 Additional comments: No motor sensory deficit. - Psychiatric Exam Psychiatric exam: Anxious - Skin Skin Exam: Warm Results - Vital Signs Recent Vital Signs: Last Vital Signs Temp 98.3 F 12/07/16 11:59 Pulse 91 H 12/07/16 11:59 Resp 20 12/07/16 11:59 BP 163/79 H 12/07/16 08:33 Pulse Ox 97 12/07/16 11:59 reviewed [place] - Labs Result Diagrams: 12/11/16 09:40 12/11/16 09:40 Labs: Laboratory Results - last 24 hr 12/07/16 12/07/16 12/07/16 04:10 05:23 10:51 WBC 12.9 H RBC 4.62 Hgb 10.7 L Hct 34.7 MCV 75.1 L MCH 23.3 L MCHC 31.0 L RDW 16.8 H Plt Count 307 Sodium 144 Potassium 3.5 L Chloride 108 H Carbon Dioxide 22 Anion Gap 18 BUN 10 Creatinine 0.4 L Est GFR ( Amer) > 60 Est GFR (Non-Af Amer) > 60 POC Glucose (mg/dL) 261 H Random Glucose 225 H Lactic Acid 7.4 H* Calcium 8.5 Total Bilirubin 0.4 AST 22 ALT 28 Alkaline Phosphatase 81 Total Protein 6.5 Albumin 3.4 L D Globulin 3.1 Albumin/Globulin Ratio 1.1 Triglycerides 114 Cholesterol 135 LDL Cholesterol Direct 73 HDL Cholesterol 39 Thyroxine (T4) 8.82 TSH 3rd Generation 1.27 Urine Color Urine Clarity Urine pH Ur Specific Omro Urine Protein Urine Glucose (UA) Urine Ketones Urine Blood Urine Nitrate Urine Bilirubin Urine Urobilinogen Ur Leukocyte Esterase Urine RBC (Auto) Urine Microscopic WBC Ur Squamous Epith Cells 12/07/16 12/07/16 11:23 11:50 WBC RBC Hgb Hct MCV MCH MCHC RDW Plt Count Sodium Potassium Chloride Carbon Dioxide Anion Gap BUN Creatinine Est GFR ( Amer) Est GFR (Non-Af Amer) POC Glucose (mg/dL) 369 H Random Glucose Lactic Acid Calcium Total Bilirubin AST ALT Alkaline Phosphatase Total Protein Albumin Globulin Albumin/Globulin Ratio Triglycerides Cholesterol LDL Cholesterol Direct HDL Cholesterol Thyroxine (T4) TSH 3rd Generation Urine Color Straw Urine Clarity Clear Urine pH 6.0 Ur Specific Omro 1.013 Urine Protein Negative Urine Glucose (UA) >=500 Urine Ketones Trace Urine Blood Negative Urine Nitrate Negative Urine Bilirubin Negative Urine Urobilinogen 0.2-1.0 Ur Leukocyte Esterase Neg Urine RBC (Auto) 1 Urine Microscopic WBC 1 Ur Squamous Epith Cells 1 reviewed JAdelePAdele - Imaging and Cardiology CT scan - abdomen Status: Report reviewed by me ([place]) CT scan - chest Status: Report reviewed by me ([place]) Assessment & Plan (1) Hyperglycemia Status: Acute Priority: High (2) HTN (hypertension) Status: Chronic Priority: Medium (3) DMII (diabetes mellitus, type 2) Status: Chronic Priority: High (4) COPD (chronic obstructive pulmonary disease) Status: Chronic Priority: Medium (5) Dehydration Status: Deleted Priority: High (6) Abdominal pain Status: Acute Priority: High - Assessment and Plan (Free Text) Plan: F/U CXR and EKG report, Humalog, Levemir, Januvia, K Dur, Protonix, Singulair, Zestril, Tylenol, Dekapote and rest of Tx. f/u PT,OT. - Date & Time Date: 12/07/16 Time: 10:20
--- NOTE | 2016-12-07 13:34 | RAD ---
HISTORY: Vomiting, abdominal pain. Upright study 08:48. COMPARISON: 12/02/2016. FINDINGS: LUNGS: No active pulmonary disease. PLEURA: No significant pleural effusion identified, no pneumothorax apparent. CARDIOVASCULAR: Cardiomegaly. No evidence of acute, significant cardiovascular disease. Position/ configuration of pacemaker Satisfactory. OSSEOUS STRUCTURES: No significant abnormalities. VISUALIZED UPPER ABDOMEN: Normal. OTHER FINDINGS: None. IMPRESSION: No active disease. No significant interval change compared to the prior examination(s).
--- NOTE | 2016-12-07 14:06 | CT ---
PROCEDURE: CT Chest without contrast HISTORY: pneumonia COMPARISON: None. TECHNIQUE: Contiguous axial images were obtained through the chest without intravenous contrast enhancement. Sagittal and coronal reconstructions were performed. Radiation dose (DLP): 725.02 mGy-cm. This CT exam was performed using one or more of the following dose reduction techniques: Automated exposure control, adjustment of the mA and/or kV according to patient size, and/or use of iterative reconstruction technique. FINDINGS: LUNGS: Clear lungs. Visualized airway clear. MEDIASTINUM: Unremarkable thoracic aorta. No aneurysm. Normal sized heart. Main pulmonary artery unremarkable. No vascular congestion. No lymphadenopathy. PLEURA: No pleural fluid. No pneumothorax. BONES: No fracture. No destructive lesion. UPPER ABDOMEN: Grossly unremarkable. OTHER FINDINGS: None. IMPRESSION: Unremarkable non-contrast enhanced CT of the chest.
[2016-12-07] MEDS: Piperacillin/Tazobact 3.375 GM in Sodium Chloride 0.9% 100 ML IVPB SCH ×2 (16:28→21:40)
[2016-12-07] MEDS: Insulin Detemir 100 Units/ml Inj SC SCH (21:45)
[2016-12-08] MEDS: Piperacillin/Tazobact 3.375 GM in Sodium Chloride 0.9% 100 ML IVPB SCH ×4 (03:17→22:19)
[2016-12-08] MEDS: Insulin Lispro (humaLOG) 100 Units/ml Inj SC SCH ×4 (06:40→22:13)
[2016-12-08 06:46] LABS: HEMATOCRIT 37.6 % (34.0-47.0); MEAN CELL VOLUME 74.7 fl (81.0-99.0); MEAN CORPUSCULAR HEMOGLOBIN 23.6 pg (27.0-31.0); MEAN CORPUSCULAR HGB CONC 31.6 g/dL (33.0-37.0); WHITE BLOOD COUNT 10.6 K/uL (4.8-10.8)
[2016-12-08 06:53] LABS: BLOOD UREA NITROGEN 7 mg/dl (7-17); CALCIUM 9.4 mg/dL (8.4-10.2); CARBON DIOXIDE 28 mmol/L (22-30); CHLORIDE 99 mmol/L (98-107); GFR AFRICAN-AMERICAN > 60; GLUCOSE,RANDOM 276 mg/dL (65-105); POTASSIUM 3.5 MMOL/L (3.6-5.0); SODIUM 142 mmol/l (132-148)
[2016-12-08] MEDS: Pantoprazole 40 mg EC Tab PO SCH (09:09)
[2016-12-08] MEDS: Divalproex 500 mg DR(BID formulation) PO SCH ×2 (09:09→18:00)
[2016-12-08] MEDS: Potassium Chloride 20 mEq ER Tab PO SCH (09:09)
--- NOTE | 2016-12-08 13:07 | CP.PCM.PN ---
Subjective - Date & Time of Evaluation Date of Evaluation: 12/08/16 Time of Evaluation: 10:20 - Subjective Subjective: F/U Abdominal pain. Pt c/o of abdominal pain with or without meals. Objective - Vital Signs/Intake and Output Vital Signs (last 24 hours): Temp Pulse Resp BP Pulse Ox 98.3 F 78 20 121/76 97 12/08/16 12:17 12/08/16 12:17 12/08/16 12:17 12/08/16 12:17 12/08/16 12:17 - Medications Medications: Current Medications Acetaminophen (Tylenol 325mg Tab) 650 mg PO Q6 PRN PRN Reason: Headache Last Admin: 12/07/16 11:59 Dose: 650 mg Calcium Carbonate (Oscal) 500 mg PO BID [facility] Last Admin: 12/08/16 09:11 Dose: 500 mg Dicyclomine HCl (Bentyl) 20 mg PO Q8 PRN PRN Reason: Pain, moderate (4-7) Last Admin: 12/08/16 04:28 Dose: 20 mg Divalproex Sodium (Depakote Dr(*Bid*)) 500 mg PO BID [facility] Last Admin: 12/08/16 09:09 Dose: 500 mg Fluconazole (Diflucan) 100 mg PO DAILY [facility] Last Admin: 12/08/16 09:08 Dose: 100 mg Fluoxetine HCl (Prozac) 20 mg PO DAILY [facility] Last Admin: 12/08/16 09:09 Dose: 20 mg Vancomycin HCl 1 gm/ Sodium (Chloride) 250 mls @ 166.667 mls/hr IVPB Q12 [facility] Last Admin: 12/08/16 09:00 Dose: 166.667 mls/hr Piperacillin Sod/Tazobactam (Sod 3.375 gm/ Sodium Chloride) 100 mls @ 100 mls/ hr IVPB Q6 [facility] Last Admin: 12/08/16 09:00 Dose: 100 mls/hr Insulin Detemir (Levemir) 40 units SC HS [facility] Last Admin: 12/07/16 21:45 Dose: 40 u Insulin Human Lispro (Humalog) 0 units SC ACHS [facility] PRN Reason: Protocol Last Admin: 12/08/16 06:40 Dose: 4 u Isosorbide Mononitrate (Imdur) 30 mg PO DAILY [facility] Last Admin: 12/08/16 09:09 Dose: 30 mg Lisinopril (Zestril) 5 mg PO DAILY [facility] Last Admin: 12/08/16 09:08 Dose: 5 mg Loperamide HCl (Imodium) 2 mg PO Q4 PRN PRN Reason: Diarrhea Last Admin: 12/07/16 21:35 Dose: 2 mg Metoprolol Tartrate (Lopressor) 25 mg PO DAILY [facility] Last Admin: 12/08/16 09:08 Dose: 25 mg Montelukast Sodium (Singulair) 10 mg PO HS [facility] Last Admin: 12/07/16 21:35 Dose: 10 mg Ondansetron HCl (Zofran Inj) 4 mg IVP Q4 PRN PRN Reason: Nausea/Vomiting Pantoprazole Sodium (Protonix Ec Tab) 40 mg PO DAILY [facility] Last Admin: 12/08/16 09:09 Dose: 40 mg Potassium Chloride (K-Dur 20 Meq Er Tab) 40 meq PO DAILY [facility] Last Admin: 12/08/16 09:09 Dose: 40 meq Risperidone (Risperdal Tab) 0.5 mg PO BID [facility] Last Admin: 12/08/16 09:10 Dose: 0.5 mg Sitagliptin Phosphate (Januvia) 100 mg PO DAILY [facility] Last Admin: 12/08/16 09:09 Dose: 100 mg - Labs Labs: 12/08/16 05:00 12/08/16 04:00 - Constitutional Appears: No Acute Distress - Head Exam Head Exam: NORMAL INSPECTION - Eye Exam Eye Exam: PERRL - ENT Exam ENT Exam: Normal Oropharynx - Neck Exam Neck Exam: Normal Inspection - Respiratory Exam Respiratory Exam: NORMAL BREATHING PATTERN - Cardiovascular Exam Cardiovascular Exam: REGULAR RHYTHM Additional comments: PPM - GI/Abdominal Exam GI & Abdominal Exam: Soft, Tenderness (epigastric), Normal Bowel Sounds. absent : Guarding, Rebound - Extremities Exam Extremities Exam: Normal Inspection - Back Exam Back Exam: NORMAL INSPECTION - Neurological Exam Neurological Exam: Alert, Oriented x3. absent: Motor Sensory Deficit - Psychiatric Exam Psychiatric exam: Anxious - Skin Skin Exam: Warm Assessment and Plan (1) Abdominal pain Status: Acute (2) Lactic acidosis Status: Acute (3) Dehydration Status: Acute (4) Hyperglycemia Status: Acute (5) DMII (diabetes mellitus, type 2) Status: Chronic (6) COPD (chronic obstructive pulmonary disease) Status: Chronic (7) HTN (hypertension) Status: Chronic - Assessment and Plan (Free Text) Plan: Continue Bentyl, Zosyn, Vanco and rest of Tx. GI consult.
--- NOTE | 2016-12-08 18:17 | CARD ---
APPROVED REPORT EKG Measurement Heart [id number] IN [id number] [id number] <Conclusion> Atrial-sensed ventricular-paced rhythm Abnormal ECG
[2016-12-08] MEDS: Insulin Detemir 100 Units/ml Inj SC SCH (22:15)
[2016-12-09] MEDS: Piperacillin/Tazobact 3.375 GM in Sodium Chloride 0.9% 100 ML IVPB SCH ×4 (04:02→21:36)
[2016-12-09] MEDS: Insulin Lispro (humaLOG) 100 Units/ml Inj SC SCH ×4 (06:58→21:39)
[2016-12-09] MEDS: Divalproex 500 mg DR(BID formulation) PO SCH ×2 (09:58→16:47)
[2016-12-09] MEDS: Pantoprazole 40 mg EC Tab PO SCH (10:00)
[2016-12-09] MEDS: Potassium Chloride 20 mEq ER Tab PO SCH (10:03)
[2016-12-09] MEDS ORDERED: Atrop/Hyos/Scop/PhenoB Elixir PO STA (16:18)
[2016-12-09] MEDS: Alum-Mag Hydrox-Simethicone Susp (30 mL) PO PRN (16:41)
--- NOTE | 2016-12-09 17:15 | CP.PCM.PN ---
Subjective - Date & Time of Evaluation Date of Evaluation: 12/09/16 Time of Evaluation: 16:10 - Subjective Subjective: F/U Abdominal pain. Pt c/o of epigastric pain with and without food Objective - Vital Signs/Intake and Output Vital Signs (last 24 hours): Temp Pulse Resp BP Pulse Ox 98.2 F 80 20 137/78 97 12/09/16 16:45 12/09/16 16:45 12/09/16 16:45 12/09/16 16:45 12/09/16 16:45 - Medications Medications: Current Medications Acetaminophen (Tylenol 325mg Tab) 650 mg PO Q6 PRN PRN Reason: Headache Last Admin: 12/08/16 23:38 Dose: 650 mg Al Hydrox/Mg Hydrox/Simethicone (Maalox Plus 30 Ml) 30 ml PO Q4 PRN PRN Reason: Indigestion / Heartburn Last Admin: 12/09/16 16:41 Dose: 30 ml Calcium Carbonate (Oscal) 500 mg PO BID [facility] Last Admin: 12/09/16 16:46 Dose: 500 mg Divalproex Sodium (Depakote Dr(*Bid*)) 500 mg PO BID [facility] Last Admin: 12/09/16 16:47 Dose: 500 mg Fluconazole (Diflucan) 100 mg PO DAILY [facility] Last Admin: 12/09/16 10:00 Dose: 100 mg Fluoxetine HCl (Prozac) 20 mg PO DAILY [facility] Last Admin: 12/09/16 10:05 Dose: 20 mg Vancomycin HCl 1 gm/ Sodium (Chloride) 250 mls @ 166.667 mls/hr IVPB Q12 [facility] Last Admin: 12/09/16 10:10 Dose: 166.667 mls/hr Piperacillin Sod/Tazobactam (Sod 3.375 gm/ Sodium Chloride) 100 mls @ 100 mls/ hr IVPB Q6 [facility] Last Admin: 12/09/16 16:43 Dose: 100 mls/hr Insulin Detemir (Levemir) 40 units SC HS [facility] Last Admin: 12/08/16 22:15 Dose: 40 u Insulin Human Lispro (Humalog) 0 units SC ACHS [facility] PRN Reason: Protocol Last Admin: 12/09/16 12:11 Dose: 3 u Isosorbide Mononitrate (Imdur) 30 mg PO DAILY [facility] Last Admin: 12/09/16 10:02 Dose: 30 mg Lisinopril (Zestril) 5 mg PO DAILY [facility] Last Admin: 12/09/16 10:12 Dose: 5 mg Loperamide HCl (Imodium) 2 mg PO Q4 PRN PRN Reason: Diarrhea Last Admin: 12/09/16 09:56 Dose: 2 mg Metoprolol Tartrate (Lopressor) 25 mg PO DAILY [facility] Last Admin: 12/09/16 10:05 Dose: 25 mg Montelukast Sodium (Singulair) 10 mg PO HS [facility] Last Admin: 12/08/16 22:14 Dose: 10 mg Ondansetron HCl (Zofran Inj) 4 mg IVP Q4 PRN PRN Reason: Nausea/Vomiting Pantoprazole Sodium (Protonix Ec Tab) 40 mg PO DAILY [facility] Last Admin: 12/09/16 10:00 Dose: 40 mg Potassium Chloride (K-Dur 20 Meq Er Tab) 40 meq PO DAILY [facility] Last Admin: 12/09/16 10:03 Dose: 40 meq Risperidone (Risperdal Tab) 0.5 mg PO BID [facility] Last Admin: 12/09/16 16:46 Dose: 0.5 mg Sitagliptin Phosphate (Januvia) 100 mg PO DAILY [facility] Last Admin: 12/09/16 09:57 Dose: 100 mg - Labs Labs: 12/08/16 05:00 12/08/16 04:00 - Constitutional Appears: No Acute Distress - Head Exam Head Exam: NORMAL INSPECTION - Eye Exam Eye Exam: PERRL - ENT Exam ENT Exam: Normal Oropharynx - Neck Exam Neck Exam: Normal Inspection - Respiratory Exam Respiratory Exam: NORMAL BREATHING PATTERN - Cardiovascular Exam Cardiovascular Exam: REGULAR RHYTHM Additional comments: PPM - GI/Abdominal Exam GI & Abdominal Exam: Soft, Tenderness (epigastric), Normal Bowel Sounds. absent : Guarding, Rebound - Extremities Exam Extremities Exam: Normal Inspection - Back Exam Back Exam: NORMAL INSPECTION - Neurological Exam Neurological Exam: Alert, Oriented x3. absent: Motor Sensory Deficit - Psychiatric Exam Psychiatric exam: Anxious - Skin Skin Exam: Warm Assessment and Plan (1) Abdominal pain Status: Acute (2) Lactic acidosis Status: Acute (3) Dehydration Status: Acute (4) Hyperglycemia Status: Acute (5) DMII (diabetes mellitus, type 2) Status: Chronic (6) COPD (chronic obstructive pulmonary disease) Status: Chronic (7) HTN (hypertension) Status: Chronic (8) Gastritis Status: Chronic (9) GERD (gastroesophageal reflux disease) Status: Chronic - Assessment and Plan (Free Text) Plan: Add tab q 4 prn abdominal pain, Maalox, continue Protonic and rest of Tx.
[2016-12-09] MEDS: Insulin Detemir 100 Units/ml Inj SC SCH (21:35)
[2016-12-10] MEDS: Piperacillin/Tazobact 3.375 GM in Sodium Chloride 0.9% 100 ML IVPB SCH ×4 (03:02→21:29)
[2016-12-10] MEDS: Insulin Lispro (humaLOG) 100 Units/ml Inj SC SCH ×4 (06:41→22:00)
[2016-12-10] MEDS: Divalproex 500 mg DR(BID formulation) PO SCH ×2 (08:57→22:04)
[2016-12-10] MEDS: Pantoprazole 40 mg EC Tab PO SCH (09:01)
[2016-12-10] MEDS: Potassium Chloride 20 mEq ER Tab PO SCH (09:04)
[2016-12-10] MEDS: Alum-Mag Hydrox-Simethicone Susp (30 mL) PO PRN ×2 (09:20→14:14)
--- NOTE | 2016-12-10 13:42 | CP.PCM.PN ---
Subjective - Date & Time of Evaluation Date of Evaluation: 12/10/16 Time of Evaluation: 11:20 - Subjective Subjective: F/U Abdominal pain. Epigastric pain improved , sexual delusions in reference to a Dr Objective - Vital Signs/Intake and Output Vital Signs (last 24 hours): Temp Pulse Resp BP Pulse Ox 98.3 F 78 20 122/73 97 12/10/16 08:04 12/10/16 09:03 12/10/16 08:04 12/10/16 09:03 12/10/16 08:04 - Medications Medications: Current Medications Acetaminophen (Tylenol 325mg Tab) 650 mg PO Q6 PRN PRN Reason: Headache Last Admin: 12/08/16 23:38 Dose: 650 mg Al Hydrox/Mg Hydrox/Simethicone (Maalox Plus 30 Ml) 30 ml PO Q4 PRN PRN Reason: Indigestion / Heartburn Last Admin: 12/10/16 09:20 Dose: 30 ml Alprazolam (Xanax) 0.5 mg PO HS PRN PRN Reason: Agitation Calcium Carbonate (Oscal) 500 mg PO BID [facility] Last Admin: 12/10/16 09:01 Dose: 500 mg Divalproex Sodium (Depakote Dr(*Bid*)) 500 mg PO BID [facility] Last Admin: 12/10/16 08:57 Dose: 500 mg Fluconazole (Diflucan) 100 mg PO DAILY [facility] Last Admin: 12/10/16 08:58 Dose: 100 mg Fluoxetine HCl (Prozac) 20 mg PO DAILY [facility] Last Admin: 12/10/16 09:01 Dose: 20 mg Vancomycin HCl 1 gm/ Sodium (Chloride) 250 mls @ 166.667 mls/hr IVPB Q12 [facility] Last Admin: 12/10/16 09:15 Dose: 166.667 mls/hr Piperacillin Sod/Tazobactam (Sod 3.375 gm/ Sodium Chloride) 100 mls @ 100 mls/ hr IVPB Q6 [facility] Last Admin: 12/10/16 09:09 Dose: 100 mls/hr Insulin Detemir (Levemir) 40 units SC HS [facility] Last Admin: 12/09/16 21:35 Dose: 40 u Insulin Human Lispro (Humalog) 0 units SC ACHS [facility] PRN Reason: Protocol Last Admin: 12/10/16 12:29 Dose: 3 units Isosorbide Mononitrate (Imdur) 30 mg PO DAILY [facility] Last Admin: 12/10/16 08:58 Dose: 30 mg Lisinopril (Zestril) 5 mg PO DAILY [facility] Last Admin: 12/10/16 09:02 Dose: 5 mg Loperamide HCl (Imodium) 2 mg PO Q4 PRN PRN Reason: Diarrhea Last Admin: 12/10/16 08:58 Dose: 2 mg Metoprolol Tartrate (Lopressor) 25 mg PO DAILY [facility] Last Admin: 12/10/16 09:03 Dose: 25 mg Montelukast Sodium (Singulair) 10 mg PO [facility] Last Admin: 12/09/16 21:35 Dose: 10 mg Ondansetron HCl (Zofran Inj) 4 mg IVP Q4 PRN PRN Reason: Nausea/Vomiting Pantoprazole Sodium (Protonix Ec Tab) 40 mg PO DAILY [facility] Last Admin: 12/10/16 09:01 Dose: 40 mg Potassium Chloride (K-Dur 20 Meq Er Tab) 40 meq PO DAILY [facility] Last Admin: 12/10/16 09:04 Dose: 40 meq Risperidone (Risperdal Tab) 0.5 mg PO BID [facility] Last Admin: 12/10/16 09:01 Dose: 0.5 mg Sitagliptin Phosphate (Januvia) 100 mg PO DAILY [facility] Last Admin: 12/10/16 08:59 Dose: 100 mg - Labs Labs: 12/08/16 05:00 12/08/16 04:00 - Constitutional Appears: No Acute Distress - Head Exam Head Exam: NORMAL INSPECTION - Eye Exam Eye Exam: PERRL - ENT Exam ENT Exam: Normal Oropharynx - Neck Exam Neck Exam: Normal Inspection - Respiratory Exam Respiratory Exam: NORMAL BREATHING PATTERN - Cardiovascular Exam Cardiovascular Exam: REGULAR RHYTHM Additional comments: PPM - GI/Abdominal Exam GI & Abdominal Exam: Soft, Tenderness (epigastric ( may be 2nd to Patient Psychiatric condition)), Normal Bowel Sounds. absent: Guarding (mild epigastric ) - Extremities Exam Extremities Exam: Normal Inspection - Back Exam Back Exam: NORMAL INSPECTION - Neurological Exam Neurological Exam: Alert, Oriented x3. absent: Motor Sensory Deficit - Psychiatric Exam Psychiatric exam: Anxious - Skin Skin Exam: Warm Assessment and Plan (1) Hyperglycemia Status: Acute (2) HTN (hypertension) Status: Chronic (3) DMII (diabetes mellitus, type 2) Status: Chronic (4) COPD (chronic obstructive pulmonary disease) Status: Chronic (5) Lactic acidosis Status: Resolved (6) Abdominal pain Status: Acute - Assessment and Plan (Free Text) Assessment: Abdominal pain 2nd to Gastritis improved , Seizure stable , Psychiatric condition worsening Plan: Psychiatric consult , f/u GI
[2016-12-10] MEDS: Insulin Detemir 100 Units/ml Inj SC SCH (21:26)
[2016-12-11] MEDS: Piperacillin/Tazobact 3.375 GM in Sodium Chloride 0.9% 100 ML IVPB SCH ×2 (05:25→09:27)
[2016-12-11] MEDS: Insulin Lispro (humaLOG) 100 Units/ml Inj SC SCH (06:39)
--- NOTE | 2016-12-11 08:50 | CP.PCM.CON ---
History of Present Illness - History of Present Illness History of Present Illness: psychiatry consult ordered by dr. 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 she was recently hospitalized with seizures. she is returning now with c/o gi pain. she was seen by psychiatry and neurology on 12/03 during last admission and she was started on depakote by neurology recently. there is no depakote level on the chart, there is no report of an EEG which had been recommended. it appears the pt was recently discontinued from benzodiazapines. she is currently sitting in hallway. she states she is upset because a neighbor and a doctor at [facility] both committed suicide in front of her. she reports hearing both of their voices talking to her. she reports she felt the doctor's (el stone?) last heart bead. she reports she has trouble sleeping, feels anxious, and feels unsure about going home. she reports some suicidal thoughts, but denies any plan or intent to harm self. she reports she "went blind last week after my seizure...but now i am starting to see." it is unclear if she has visual hallucinations. she reports she does not have any psychiatric providers as she is suing [facility] after her doctor killed himself in front of her. past psych: per recent consult pt was admitted to [facility] earlier this year and dx with psychotic depression. she states she does not have any providers. she states she has been in [facility] programs, but they did not help. states she can recall 2 previous psych admissions. reports a prior suicide attempt several years ago when put on cymbalta. medical problems: several chronic issues as per dr. varela. she has recent onset of seizures. chronic pain issues (has been on opioid medications chronically) abuse: unable to discuss at this time substance use: quit smoking 10 years ago, states "i tried medicinal mj but it made me more anxious. states she used some illicit drugs in her youth, but could not provide details. social history: lives in with her son, riaz. states she has a mobile home set up person who "is dying from bone cancer" mse: pt alert, oriented to circumstances, self, place. she is in hospital attire , somewhat odd appearance- dramatic eyebrows, short fingernails painted different colors. she reports her mood is anxious. her affect is somewhat constricted. her thoughts are mildly disorganized, but she is able to express concern about taking care of the food delivery service she gets at home. she does appear to have some bizarre delusional thoughts around theme of suicides of a doctor and neighbors. she has auditory hallucinations. she may be having some visual hallucinations, but this is hard to elucidate with this limited time with pt. she reports suicidal thoughts, but denies plan or intent. she denies homicidal thoughts. her memory appears to be grossly intact. fair i/j. assessment: mdd with psychotic features vs schizoaffective disorder recent seizures recommendation: 1) continue current psychiatric medications 2) check depakote level as this does not appear to have been done 3)may want to reconsult neurology to finish work-up? eeg? adjust depakote etc. 4)pt is agreeable to inpatient psychiatric treatment which may benefit the pt as she is having some suicidal thoughts along with delusions that are regarding the suicides of others. she could benefit from assessment and adjustment of medications to target her mood/psychotic and anxiety symptoms. she could also benefit from arrangement of outpatient psychiatric services to help keep her safe in the community. when pt is medically cleared can call access center and [facility] to arrange transfer to the 3 unit. Past Patient History - Past Medical History & Family History Past Medical History?: Yes - Past Social History Smoking Status: Former Smoker Alcohol: None Drugs: Denies Home Situation {Lives}: With Family - CARDIAC Hx Cardiac Disorders: Yes Hx Cardia Arrhythmia: Yes Hx Hypertension: Yes Hx Pacemaker: Yes - PULMONARY Hx Respiratory Disorders: Yes Hx Chronic Obstructive Pulmonary Disease (COPD): Yes - NEUROLOGICAL Hx Neurological Disorder: Yes Hx Seizures: Yes - HEENT Hx HEENT Problems: No - RENAL Hx Chronic Kidney Disease: No - ENDOCRINE/METABOLIC Hx Endocrine Disorders: Yes Hx Diabetes Mellitus Type 2: Yes - HEMATOLOGICAL/ONCOLOGICAL Hx Blood Disorders: No Hx Human Immunodeficiency Virus (HIV): No - INTEGUMENTARY Hx Dermatological Problems: No - MUSCULOSKELETAL/RHEUMATOLOGICAL Hx Falls: Yes - GASTROINTESTINAL Hx Gastrointestinal Disorders: No - GENITOURINARY/GYNECOLOGICAL Hx Genitourinary Disorders: No - PSYCHIATRIC Hx Psychophysiologic Disorder: Yes Hx Bipolar Disorder: Yes Hx Depression: Yes Hx Substance Use: No - SURGICAL HISTORY Hx Surgeries: Yes Hx Cholecystectomy: Yes Hx Coronary Artery Bypass Graft: Yes - ANESTHESIA Hx Anesthesia: Yes Hx Anesthesia Reactions: No Meds Allergies/Adverse Reactions: Allergies Allergy/AdvReac Type Severity Reaction Status Date / Time amitriptyline HCl Allergy ITCHING Verified 12/06/16 21:12 [From Elavil] duloxetine HCl Allergy ITCHING Verified 12/06/16 21:12 [From Cymbalta] gabapentin [From Neurontin] Allergy ITCHING Verified 12/06/16 21:12 metformin Allergy ITCHING Verified 12/06/16 21:12 methotrexate Allergy ITCHING Verified 12/06/16 21:12 soy Allergy ITCHING Verified 12/06/16 21:12 - Medications Medications: Current Medications Acetaminophen (Tylenol 325mg Tab) 650 mg PO Q6 PRN PRN Reason: Headache Last Admin: 12/10/16 14:52 Dose: 650 mg Al Hydrox/Mg Hydrox/Simethicone (Maalox Plus 30 Ml) 30 ml PO Q4 PRN PRN Reason: Indigestion / Heartburn Last Admin: 12/10/16 14:14 Dose: 30 ml Calcium Carbonate (Oscal) 500 mg PO BID [facility] Last Admin: 12/10/16 22:05 Dose: 500 mg Divalproex Sodium (Depakote Dr(*Bid*)) 500 mg PO BID [facility] Last Admin: 12/10/16 22:04 Dose: 500 mg Fluconazole (Diflucan) 100 mg PO DAILY [facility] Last Admin: 12/10/16 08:58 Dose: 100 mg Fluoxetine HCl (Prozac) 20 mg PO DAILY [facility] Last Admin: 12/10/16 09:01 Dose: 20 mg Vancomycin HCl 1 gm/ Sodium (Chloride) 250 mls @ 166.667 mls/hr IVPB Q12 [facility] Last Admin: 12/10/16 20:09 Dose: 166.667 mls/hr Piperacillin Sod/Tazobactam (Sod 3.375 gm/ Sodium Chloride) 100 mls @ 100 mls/ hr IVPB Q6 [facility] Last Admin: 12/11/16 05:25 Dose: 100 mls/hr Insulin Detemir (Levemir) 40 units SC HS [facility] Last Admin: 12/10/16 21:26 Dose: 40 u Insulin Human Lispro (Humalog) 0 units SC ACHS [facility] PRN Reason: Protocol Last Admin: 12/11/16 06:39 Dose: 3 units Isosorbide Mononitrate (Imdur) 30 mg PO DAILY [facility] Last Admin: 12/10/16 08:58 Dose: 30 mg Lisinopril (Zestril) 5 mg PO DAILY [facility] Last Admin: 12/10/16 09:02 Dose: 5 mg Loperamide HCl (Imodium) 2 mg PO Q4 PRN PRN Reason: Diarrhea Last Admin: 12/10/16 08:58 Dose: 2 mg Metoprolol Tartrate (Lopressor) 25 mg PO DAILY [facility] Last Admin: 12/10/16 09:03 Dose: 25 mg Montelukast Sodium (Singulair) 10 mg PO HS [facility] Last Admin: 12/10/16 21:26 Dose: 10 mg Ondansetron HCl (Zofran Inj) 4 mg IVP Q4 PRN PRN Reason: Nausea/Vomiting Pantoprazole Sodium (Protonix Ec Tab) 40 mg PO DAILY [facility] Last Admin: 12/10/16 09:01 Dose: 40 mg Potassium Chloride (K-Dur 20 Meq Er Tab) 40 meq PO DAILY [facility] Last Admin: 12/10/16 09:04 Dose: 40 meq Risperidone (Risperdal Tab) 0.5 mg PO BID [facility] Last Admin: 12/10/16 22:05 Dose: 0.5 mg Sitagliptin Phosphate (Januvia) 100 mg PO DAILY [facility] Last Admin: 12/10/16 08:59 Dose: 100 mg Results - Vital Signs Recent Vital Signs: Last Vital Signs Temp 97.8 F 12/11/16 07:37 Pulse 89 12/11/16 07:37 Resp 18 12/11/16 07:37 BP 157/86 H 12/11/16 07:37 Pulse Ox 98 12/11/16 07:37 - Labs Result Diagrams: 12/08/16 05:00 12/08/16 04:00 Labs: Laboratory Results - last 24 hr 12/10/16 12/10/16 12/10/16 11:47 15:30 21:16 POC Glucose (mg/dL) 231 H 220 H 234 H 12/11/16 05:31 POC Glucose (mg/dL) 247 H
[2016-12-11] MEDS: Potassium Chloride 20 mEq ER Tab PO SCH (09:01)
[2016-12-11] MEDS: Pantoprazole 40 mg EC Tab PO SCH (09:01)
[2016-12-11] MEDS: Divalproex 500 mg DR(BID formulation) PO SCH ×2 (09:10→16:05)
--- NOTE | 2016-12-11 09:15 | PQF GENQUE ---
This form is a permanent part of the medical record 12/11/16 Dr. Salvador, Please clarify the possible etiology of abdominal pain if known. Admitted with generalized abdominal pain prominent in the epigastric area with nausea , chills, poor appetite and tactile fever at home. CT Abdomen and Pelvis : Left adnexal cyst, calcified aneurysm left renal pelvis and umbilical hernia. WBC 15.6, lactic acid 7.4 and Urine CS growing Gram negative rods. Treatment includes Protonix and IVAB. Clarification of your documentation is requested to better reflect the severity of illness and intensity of treatment of your patient. PHYSICIAN'S RESPONSE Based on your medical judgment of the clinical indicators outlined above please clarify the following: [] Practitioner response [] If unable to determine, please check the box, sign and date. Present On Admission (POA) Indicator: [] Present at the time of admission [] Not present at the time of admission [] Clinically Undetermined In responding to this query, please exercise your independent professional judgment. The fact that a question is asked does not imply that any particular answer is desired or expected. Thank you for your clarification on this documentation. If you have any questions please call:extension [phone] * Thank you, Rain Alonzo RN [facility]
[2016-12-11 10:17] LABS: BASO # 0.1 K/uL (0.0-0.2); BASO % 0.7 % (0.0-2.0); EOS % 0.3 % (0.0-4.0); HEMATOCRIT 38.7 % (34.0-47.0); LYMPH # 3.5 K/uL (1.0-4.3); LYMPH % 29.6 % (20.0-40.0); MEAN CELL VOLUME 74.7 fl (81.0-99.0); MEAN CORPUSCULAR HEMOGLOBIN 23.9 pg (27.0-31.0); MEAN CORPUSCULAR HGB CONC 31.9 g/dL (33.0-37.0); MEAN PLATELET VOLUME 8.9 fl (7.2-11.7); MONO # 0.7 K/uL (0.0-0.8); MONO % 6.3 % (0.0-10.0); NEUT # 7.5 K/uL (1.8-7.0); NEUT % 63.1 % (50.0-75.0); NRBC % 0.1 % (0.0-0.0); RED CELL DISTRIBUTION WIDTH 17.4 % (11.5-14.5); WHITE BLOOD COUNT 11.8 K/uL (4.8-10.8)
[2016-12-11 10:32] LABS: BLOOD UREA NITROGEN 9 mg/dl (7-17); CALCIUM 10.1 mg/dL (8.4-10.2); CARBON DIOXIDE 24 mmol/L (22-30); CHLORIDE 97 mmol/L (98-107); GFR AFRICAN-AMERICAN > 60; GLUCOSE,RANDOM 347 mg/dL (65-105); POTASSIUM 4.3 MMOL/L (3.6-5.0); SODIUM 139 mmol/l (132-148)
[2016-12-11] MEDS ORDERED: Insulin Lispro (humaLOG) 100 Units/ml Inj SC SCH (12:12)
--- NOTE | 2016-12-11 12:24 | CP.PCM.PN ---
Subjective - Date & Time of Evaluation Date of Evaluation: 12/11/16 Time of Evaluation: 12:25 - Subjective Subjective: doing well Objective - Vital Signs/Intake and Output Vital Signs (last 24 hours): Temp Pulse Resp BP Pulse Ox 97.8 F 89 18 157/86 H 98 12/11/16 07:37 12/11/16 09:11 12/11/16 07:37 12/11/16 09:11 12/11/16 07:37 - Medications Medications: Current Medications Acetaminophen (Tylenol 325mg Tab) 650 mg PO Q6 PRN PRN Reason: Headache Last Admin: 12/10/16 14:52 Dose: 650 mg Al Hydrox/Mg Hydrox/Simethicone (Maalox Plus 30 Ml) 30 ml PO Q4 PRN PRN Reason: Indigestion / Heartburn Last Admin: 12/10/16 14:14 Dose: 30 ml Calcium Carbonate (Oscal) 500 mg PO BID [facility] Last Admin: 12/11/16 09:00 Dose: 500 mg Divalproex Sodium (Depakote Dr(*Bid*)) 500 mg PO BID [facility] Last Admin: 12/11/16 09:10 Dose: 500 mg Fluconazole (Diflucan) 100 mg PO DAILY [facility] Last Admin: 12/11/16 09:01 Dose: 100 mg Fluoxetine HCl (Prozac) 20 mg PO DAILY [facility] Last Admin: 12/11/16 09:10 Dose: 20 mg Vancomycin HCl 1 gm/ Sodium (Chloride) 250 mls @ 166.667 mls/hr IVPB Q12 [facility] Last Admin: 12/11/16 09:13 Dose: 166.667 mls/hr Piperacillin Sod/Tazobactam (Sod 3.375 gm/ Sodium Chloride) 100 mls @ 100 mls/ hr IVPB Q6 [facility] Last Admin: 12/11/16 09:27 Dose: 100 mls/hr Insulin Detemir (Levemir) 40 units SC HS [facility] Last Admin: 12/10/16 21:26 Dose: 40 u Insulin Human Lispro (Humalog) 0 units SC ACHS [facility] PRN Reason: Protocol Isosorbide Mononitrate (Imdur) 30 mg PO DAILY [facility] Last Admin: 12/11/16 09:09 Dose: 30 mg Lisinopril (Zestril) 5 mg PO DAILY [facility] Last Admin: 12/11/16 08:59 Dose: 5 mg Loperamide HCl (Imodium) 2 mg PO Q4 PRN PRN Reason: Diarrhea Last Admin: 12/10/16 08:58 Dose: 2 mg Metoprolol Tartrate (Lopressor) 25 mg PO DAILY [facility] Last Admin: 12/11/16 09:11 Dose: 25 mg Montelukast Sodium (Singulair) 10 mg PO HS [facility] Last Admin: 12/10/16 21:26 Dose: 10 mg Ondansetron HCl (Zofran Inj) 4 mg IVP Q4 PRN PRN Reason: Nausea/Vomiting Pantoprazole Sodium (Protonix Ec Tab) 40 mg PO DAILY [facility] Last Admin: 12/11/16 09:01 Dose: 40 mg Potassium Chloride (K-Dur 20 Meq Er Tab) 40 meq PO DAILY [facility] Last Admin: 12/11/16 09:01 Dose: 40 meq Risperidone (Risperdal Tab) 0.5 mg PO BID [facility] Last Admin: 12/11/16 09:09 Dose: 0.5 mg Sitagliptin Phosphate (Januvia) 100 mg PO DAILY [facility] Last Admin: 12/11/16 09:09 Dose: 100 mg - Labs Labs: 12/11/16 09:40 12/11/16 09:40 - GI/Abdominal Exam GI & Abdominal Exam: Soft, Normal Bowel Sounds Assessment and Plan - Assessment and Plan (Free Text) Assessment: 56 yo female with nausea doing better ppi outpatient EGD glycemic control dc planning when able
--- NOTE | 2016-12-11 13:10 | CON ---
DATE: 12/11/2016 REFERRING PHYSICIAN: Dr. Salvador REASON FOR CONSULTATION: Nausea, vomiting. HISTORY OF PRESENT ILLNESS: This is a pleasant 56-year-old female with history of bipolar, cardiac a rrhythmia, diabetes, hypertension, COPD, depression, obesity, history of CABG. Comes in for abdomina l pain and discomfort and chest pain, some heartburn and reflux, all of which has resolved and is jesica erating diet. The patient said this all started when she watched a fellow physician " in front of her." She has been having heartburn ever since. She is actually doing better on [id number] and tolerating diet at this point. Currently lying in bed, comfortable, no apparent distress. PAST MEDICAL HISTORY: As above. PAST SURGICAL HISTORY: As above. MEDICATIONS: Have been reviewed. REVIEW OF SYSTEMS: All other systems have been reviewed and negative, positives in the HPI. PHYSICAL EXAMINATION: VITAL SIGNS: Here in the hospital grossly unremarkable. GENERAL: This is a pleasant, elderly-appearing female lying in bed, comfortable, no apparent distres s. HEAD: Normocephalic, atraumatic. EYES: Pupils equally reactive to light bilaterally. No conjunctival pallor or icterus. NECK: Supple. Normal range of motion. No lymphadenopathy appreciated. LUNGS: Coarse breath sounds bilaterally. HEART: S1, S2. Regular rate and rhythm. No murmurs appreciated. ABDOMEN: Soft, nontender. Bowel sounds present. No rebound or guarding. RECTAL: Deferred. EXTREMITIES: Pulses present bilaterally. SKIN: Warm, dry and intact. NEUROLOGIC: AO x 3. LABORATORY DATA: WBC is 10.6, hemoglobin 11.9, hematocrit of 37.6. Lactic acid is down to normal at 1.6. Sugars are over 200 and plus. ASSESSMENT AND PLAN: This is a 56-year-old female with nausea and vomiting. I think this is all sec ondary to gastroparesis plus or minus just reflux and/or hyperglycemia. From a gastrointestinal thanh dpoint, tolerating diet. ____ they will plan for an outpatient ____ consult. Bassam Francisco MD, PhD cc:Jagdish Salvador MD [id number] TT: 12/11/2016 13:09:54 Confirmation # [id number] Dictation # [id number] sn
--- NOTE | 2016-12-11 14:51 | CP.PCM.PN ---
Subjective - Date & Time of Evaluation Date of Evaluation: 12/11/16 Time of Evaluation: 11:20 - Subjective Subjective: F/U Abdominal pain. Pt with no cough, no SOB, no abdominal pain , improved. Objective - Vital Signs/Intake and Output Vital Signs (last 24 hours): Temp Pulse Resp BP Pulse Ox 97.8 F 89 18 157/86 H 98 12/11/16 07:37 12/11/16 09:11 12/11/16 07:37 12/11/16 09:11 12/11/16 07:37 - Medications Medications: Current Medications Acetaminophen (Tylenol 325mg Tab) 650 mg PO Q6 PRN PRN Reason: Headache Last Admin: 12/10/16 14:52 Dose: 650 mg Al Hydrox/Mg Hydrox/Simethicone (Maalox Plus 30 Ml) 30 ml PO Q4 PRN PRN Reason: Indigestion / Heartburn Last Admin: 12/10/16 14:14 Dose: 30 ml Calcium Carbonate (Oscal) 500 mg PO BID [facility] Last Admin: 12/11/16 09:00 Dose: 500 mg Divalproex Sodium (Depakote Dr(*Bid*)) 500 mg PO BID [facility] Last Admin: 12/11/16 09:10 Dose: 500 mg Fluconazole (Diflucan) 100 mg PO DAILY [facility] Last Admin: 12/11/16 09:01 Dose: 100 mg Fluoxetine HCl (Prozac) 20 mg PO DAILY [facility] Last Admin: 12/11/16 09:10 Dose: 20 mg Insulin Detemir (Levemir) 40 units SC HS [facility] Last Admin: 12/10/16 21:26 Dose: 40 u Insulin Human Lispro (Humalog) 0 units SC [facility] PRN Reason: Protocol Isosorbide Mononitrate (Imdur) 30 mg PO DAILY [facility] Last Admin: 12/11/16 09:09 Dose: 30 mg Lisinopril (Zestril) 5 mg PO DAILY [facility] Last Admin: 12/11/16 08:59 Dose: 5 mg Loperamide HCl (Imodium) 2 mg PO Q4 PRN PRN Reason: Diarrhea Last Admin: 12/10/16 08:58 Dose: 2 mg Metoprolol Tartrate (Lopressor) 25 mg PO DAILY [facility] Last Admin: 12/11/16 09:11 Dose: 25 mg Montelukast Sodium (Singulair) 10 mg PO HS [facility] Last Admin: 12/10/16 21:26 Dose: 10 mg Ondansetron HCl (Zofran Inj) 4 mg IVP Q4 PRN PRN Reason: Nausea/Vomiting Pantoprazole Sodium (Protonix Ec Tab) 40 mg PO DAILY [facility] Last Admin: 12/11/16 09:01 Dose: 40 mg Potassium Chloride (K-Dur 20 Meq Er Tab) 40 meq PO DAILY [facility] Last Admin: 12/11/16 09:01 Dose: 40 meq Risperidone (Risperdal Tab) 0.5 mg PO BID [facility] Last Admin: 12/11/16 09:09 Dose: 0.5 mg Sitagliptin Phosphate (Januvia) 100 mg PO DAILY [facility] Last Admin: 12/11/16 09:09 Dose: 100 mg - Labs Labs: 12/11/16 09:40 12/11/16 09:40 - Constitutional Appears: No Acute Distress - Head Exam Head Exam: NORMAL INSPECTION - Eye Exam Eye Exam: PERRL - ENT Exam ENT Exam: Normal Oropharynx - Neck Exam Neck Exam: Normal Inspection - Respiratory Exam Respiratory Exam: NORMAL BREATHING PATTERN - Cardiovascular Exam Cardiovascular Exam: REGULAR RHYTHM Additional comments: PPM - GI/Abdominal Exam GI & Abdominal Exam: Soft, Tenderness (mild epigastric ( may be 2nd to Patient Psychiatric condition )), Normal Bowel Sounds. absent: Guarding, Rebound - Extremities Exam Extremities Exam: Normal Inspection - Back Exam Back Exam: NORMAL INSPECTION - Neurological Exam Neurological Exam: Alert, Oriented x3. absent: Motor Sensory Deficit - Psychiatric Exam Psychiatric exam: Anxious - Skin Skin Exam: Warm Assessment and Plan (1) Hyperglycemia Status: Acute (2) HTN (hypertension) Status: Chronic (3) DMII (diabetes mellitus, type 2) Status: Chronic (4) COPD (chronic obstructive pulmonary disease) Status: Chronic (5) Seizure Status: Chronic - Assessment and Plan (Free Text) Assessment: Pychiatric consult appreciated , mdd with psychotic featueres vs schizoaffective , disorder, GI f/u Patient stable , EGD out patient Plan: Neuro consult , Pt improved and stable to be transferred to Psychiatric Unit.
--- NOTE | 2016-12-11 15:48 | CP.PCM.CON ---
History of Present Illness - History of Present Illness History of Present Illness: Mrs. Thompson is a 56-year-old woman with a past medical history of diabetes, depression, hypertension and recent seizures who was started on Depakote and is tolerating it well. She is currently admitted for abdominal pain and has complaints of shortness of breath and neck pain. She denied any recent seizure activity, headaches, vertigo, weakness, sensory changes or changes in appetite. She complained of visual changes, but those resolved this morning. Review of Systems - Review of Systems All systems: reviewed and no additional remarkable complaints except Past Patient History - Past Medical History & Family History Past Medical History?: Yes - Past Social History Smoking Status: Former Smoker Alcohol: None Drugs: Denies Home Situation {Lives}: With Family - CARDIAC Hx Cardiac Disorders: Yes Hx Cardia Arrhythmia: Yes Hx Hypertension: Yes Hx Pacemaker: Yes - PULMONARY Hx Respiratory Disorders: Yes Hx Chronic Obstructive Pulmonary Disease (COPD): Yes - NEUROLOGICAL Hx Neurological Disorder: Yes Hx Seizures: Yes - HEENT Hx HEENT Problems: No - RENAL Hx Chronic Kidney Disease: No - ENDOCRINE/METABOLIC Hx Endocrine Disorders: Yes Hx Diabetes Mellitus Type 2: Yes - HEMATOLOGICAL/ONCOLOGICAL Hx Blood Disorders: No Hx Human Immunodeficiency Virus (HIV): No - INTEGUMENTARY Hx Dermatological Problems: No - MUSCULOSKELETAL/RHEUMATOLOGICAL Hx Falls: Yes - GASTROINTESTINAL Hx Gastrointestinal Disorders: No - GENITOURINARY/GYNECOLOGICAL Hx Genitourinary Disorders: No - PSYCHIATRIC Hx Psychophysiologic Disorder: Yes Hx Bipolar Disorder: Yes Hx Depression: Yes Hx Substance Use: No - SURGICAL HISTORY Hx Surgeries: Yes Hx Cholecystectomy: Yes Hx Coronary Artery Bypass Graft: Yes - ANESTHESIA Hx Anesthesia: Yes Hx Anesthesia Reactions: No Meds Allergies/Adverse Reactions: Allergies Allergy/AdvReac Type Severity Reaction Status Date / Time amitriptyline HCl Allergy ITCHING Verified 12/06/16 21:12 [From Elavil] duloxetine HCl Allergy ITCHING Verified 12/06/16 21:12 [From Cymbalta] gabapentin [From Neurontin] Allergy ITCHING Verified 12/06/16 21:12 metformin Allergy ITCHING Verified 12/06/16 21:12 methotrexate Allergy ITCHING Verified 12/06/16 21:12 soy Allergy ITCHING Verified 12/06/16 21:12 - Medications Medications: Current Medications Acetaminophen (Tylenol 325mg Tab) 650 mg PO Q6 PRN PRN Reason: Headache Last Admin: 12/11/16 15:01 Dose: 650 mg Al Hydrox/Mg Hydrox/Simethicone (Maalox Plus 30 Ml) 30 ml PO Q4 PRN PRN Reason: Indigestion / Heartburn Last Admin: 12/10/16 14:14 Dose: 30 ml Calcium Carbonate (Oscal) 500 mg PO BID [facility] Last Admin: 12/11/16 09:00 Dose: 500 mg Divalproex Sodium (Depakote Dr(*Bid*)) 500 mg PO BID [facility] Last Admin: 12/11/16 09:10 Dose: 500 mg Fluconazole (Diflucan) 100 mg PO DAILY [facility] Last Admin: 12/11/16 09:01 Dose: 100 mg Fluoxetine HCl (Prozac) 20 mg PO DAILY [facility] Last Admin: 12/11/16 09:10 Dose: 20 mg Insulin Detemir (Levemir) 40 units SC [facility] Last Admin: 12/10/16 21:26 Dose: 40 u Insulin Human Lispro (Humalog) 0 units SC [facility] PRN Reason: Protocol Isosorbide Mononitrate (Imdur) 30 mg PO DAILY [facility] Last Admin: 12/11/16 09:09 Dose: 30 mg Lisinopril (Zestril) 5 mg PO DAILY [facility] Last Admin: 12/11/16 08:59 Dose: 5 mg Loperamide HCl (Imodium) 2 mg PO Q4 PRN PRN Reason: Diarrhea Last Admin: 12/10/16 08:58 Dose: 2 mg Metoprolol Tartrate (Lopressor) 25 mg PO DAILY [facility] Last Admin: 12/11/16 09:11 Dose: 25 mg Montelukast Sodium (Singulair) 10 mg PO HS [facility] Last Admin: 12/10/16 21:26 Dose: 10 mg Ondansetron HCl (Zofran Inj) 4 mg IVP Q4 PRN PRN Reason: Nausea/Vomiting Pantoprazole Sodium (Protonix Ec Tab) 40 mg PO DAILY [facility] Last Admin: 12/11/16 09:01 Dose: 40 mg Potassium Chloride (K-Dur 20 Meq Er Tab) 40 meq PO DAILY [facility] Last Admin: 12/11/16 09:01 Dose: 40 meq Risperidone (Risperdal Tab) 0.5 mg PO BID [facility] Last Admin: 12/11/16 09:09 Dose: 0.5 mg Sitagliptin Phosphate (Januvia) 100 mg PO DAILY [facility] Last Admin: 12/11/16 09:09 Dose: 100 mg Physical Exam - Constitutional Appears: Well - Head Exam Head Exam: ATRAUMATIC, NORMAL INSPECTION, NORMOCEPHALIC - Eye Exam Eye Exam: EOMI, Normal appearance, PERRL - ENT Exam ENT Exam: Mucous Membranes Moist, Normal Exam - Neck Exam Neck exam: Positive for: Normal Inspection - Respiratory Exam Respiratory Exam: Clear to Auscultation Bilateral, NORMAL BREATHING PATTERN - Cardiovascular Exam Cardiovascular Exam: REGULAR RHYTHM - GI/Abdominal Exam GI & Abdominal Exam: Normal Bowel Sounds, Soft. absent: Tenderness - Extremities Exam Extremities exam: Positive for: normal inspection - Back Exam Back exam: NORMAL INSPECTION - Neurological Exam Neurological exam: Alert, CN II-XII Intact, Normal Gait, Oriented x3, Reflexes Normal - Expanded Neurological Exam Expanded Patient oriented to: person, place, time Cranial nerves: Facial Sensation: Normal, Gag Reflex: Normal, Nystagmus: Normal Ataxia: No Cerebellar Function: Finger to Nose: Normal, Heel to Thomas: Normal, Romberg: Normal Upper motor neuron: Babinski Sign: Normal Sensory exam: Lower Extremity 2 Point Discrimination: Normal, Lower Extremity Light Touch: Normal, Lower Extremity Pin Prick: Normal, Lower Extremity Temperature: Normal, Upper Extremity 2 Point Discrimination: Normal, Upper Extremity Light Touch: Normal, Upper Extremity Pin Prick: Normal, Upper Extremity Temperature: Normal Neuro motor strength exam: Left Upper Extremity: 5, Right Upper Extremity: 5, Left Lower Extremity: 5, Right Lower Extremity: 5 DTR: Achilles Tendon Left: 2+, Achilles Tendon Right: 2+, Bicep Left: 2+, Bicep Right: 2+, Brachioradialis Left: 2+, Brachioradialis Right: 2+, Patellar Left: 2 +, Patellar Right: 2+, Tricep Left: 2+, Tricep Right: 2+ - Psychiatric Exam Psychiatric exam: Normal Affect, Normal Mood Results - Vital Signs Recent Vital Signs: Last Vital Signs Temp 97.8 F 12/11/16 07:37 Pulse 89 12/11/16 09:11 Resp 18 12/11/16 07:37 BP 157/86 H 12/11/16 09:11 Pulse Ox 98 12/11/16 07:37 - Labs Result Diagrams: 12/11/16 09:40 12/11/16 09:40 Labs: Laboratory Results - last 24 hr 12/10/16 12/10/16 12/11/16 15:30 21:16 05:31 WBC RBC Hgb Hct MCV MCH MCHC RDW Plt Count MPV Neut % (Auto) Lymph % (Auto) [place] % (Auto) Eos % (Auto) Baso % (Auto) Neut # Lymph # [place] # Eos # Baso # Sodium Potassium Chloride Carbon Dioxide Anion Gap BUN Creatinine Est GFR ( Amer) Est GFR (Non-Af Amer) POC Glucose (mg/dL) 220 H 234 H 247 H Random Glucose Calcium 12/11/16 12/11/16 12/11/16 09:40 11:03 15:33 WBC 11.8 H RBC 5.19 Hgb 12.4 Hct 38.7 MCV 74.7 L MCH 23.9 L MCHC 31.9 L RDW 17.4 H Plt Count 348 MPV 8.9 Neut % (Auto) 63.1 Lymph % (Auto) 29.6 [place] % (Auto) 6.3 Eos % (Auto) 0.3 Baso % (Auto) 0.7 Neut # 7.5 H Lymph # 3.5 [place] # 0.7 Eos # 0.0 Baso # 0.1 Sodium 139 Potassium 4.3 Chloride 97 L Carbon Dioxide 24 Anion Gap 22 H BUN 9 Creatinine 0.4 L Est GFR ( Amer) > 60 Est GFR (Non-Af Amer) > 60 POC Glucose (mg/dL) 204 H 272 H Random Glucose 347 H Calcium 10.1 Assessment & Plan (1) Seizure Assessment and Plan: Currently stable on Depakote. Will check levels of depakote to ensure that she is in the therapeutic range. She does not appear to be having any side-effects and is tolerating the medication well. Thank you very much for this consultation. Status: Acute
[2016-12-11 16:44] VITALS: BP 128/76; PULSE 78; RESP 20; TEMP 98.1; O2SAT 95
== END 2016-12-11 18:45 | DRG 392 ==
LOC: H.ER 21:10 → H.ERHOLD 23:47 → H.TEL 12-07 01:16 → H.MEDSURG1 12-08 15:34 → H.STEP 12-11 18:52 → H.MEDSURG1 12-11 18:52
PROVIDERS: ADMIT Internal Medicine Pulmonary Disease; ATTEND Internal Medicine Pulmonary Disease
DX: K21.9 Gastro-esophageal reflux disease without esophagitis (principal); E87.2 Acidosis; K29.50 Unspecified chronic gastritis without bleeding; E11.65 Type 2 diabetes mellitus with hyperglycemia; Z91.14 Patient's other noncompliance with medication regimen; E86.0 Dehydration; E66.9 Obesity, unspecified; Z68.33 Body mass index [BMI] 33.0-33.9, adult; Z95.0 Presence of cardiac pacemaker; Z95.1 Presence of aortocoronary bypass graft; I25.10 Atherosclerotic heart disease of native coronary artery without angina pectoris; F31.9 Bipolar disorder, unspecified; J44.9 Chronic obstructive pulmonary disease, unspecified; G40.909 Epilepsy, unspecified, not intractable, without status epilepticus; I10 Essential (primary) hypertension

== ENCOUNTER 2016-12-11 14:36 | Inpatient (IN) | payer MEDICARE, MEDICAID ==
[2016-12-11] MEDS ORDERED: DiphenhydrAMINE 50 mg/ml Inj IM PRN (20:18)
[2016-12-11] MEDS ORDERED: Magnesium Hydroxide Susp 30 ml UD PO PRN (20:18)
[2016-12-11] MEDS: Insulin Detemir 100 Units/ml Inj SC SCH (22:56)
[2016-12-11] MEDS: Alum-Mag Hydrox-Simethicone Susp (30 mL) PO PRN (23:00)
[2016-12-12 08:01] LABS: IRON 29 ug/dL (37-170)
[2016-12-12] MEDS: Pantoprazole 40 mg EC Tab PO SCH (08:52)
[2016-12-12] MEDS: Divalproex 500 mg DR(BID formulation) PO SCH ×2 (08:55→17:11)
[2016-12-12] MEDS: Potassium Chloride 20 mEq ER Tab PO SCH (08:56)
--- NOTE | 2016-12-12 09:09 | CP.PCM.CON ---
<Gabriela Mccoy - Last Filed: 12/12/16 22:00> History of Present Illness - History of Present Illness History of Present Illness: 56 yr old with PMHx of IDDM, HTN, COPD, recent onset seizures, dilated ischemic cardiomyopathy s/p pacemaker, Bipolar, admitted for Major Depressive Disorder with psychosis, has complaint of heavy vaginal bleeding x 2 days. Patient is a poor historian. Patient reports her LMP was in February 2016. Denies prior hx of STD's, abnormal pap smear, pelvic pain, weakness, dizziness. Patient states she lost 30lbs in one week recently, and she is "dying of bone cancer". Denies fever/chills/anorexia. Patient has no other concerns or complaints at this time. OBHx: , 3 x c-sections (per patient, pre-term labor at 32wks GA resulted in the of 1 single fetus, subsequent with pre-term labor at 34 wks GA resulted in twins shortly after delivery) GynHx: denies hx of STD or abnormal pap smear, no sexual activity for >5 yrs, LMP February 2016 PMHx: IDDM, HTN, COPD, recent onset seizures, dilated ischemic cardiomyopathy s/ p pacemaker, Bipolar, Depression, Anxiety SurgHx: Cholecystectomy, x 3 SocHx: denies Etoh, drugs, smoking; was a former smoker (quit 10 yrs ago) Meds: Fluoxetine, Risperidone, Fluconazole, Insulin Aspart, Isosorbide Mononitrate, Lisinopril, Metoprolol, Pantoprazole, Montelukast, Morphine immediate release tabs, Calcium Allergies: Amitriptylline, Duloxetine, Metformin, Methotrexate, Gabapentin, Soy (all give her itchiness) Review of Systems - Constitutional Constitutional: absent: Chills, Fever, Headache - EENT Eyes: absent: Change in Vision - Cardiovascular Cardiovascular: absent: Chest Pain, Rapid Heart Rate - Respiratory Respiratory: absent: Cough, Dyspnea - Gastrointestinal Gastrointestinal: absent: Abdominal Pain, Change in Bowel Habits - Genitourinary Genitourinary: absent: Dysuria, Hematuria - Reproductive: Female Reproductive:Female: Heavy Menses (x 2 days). absent: Dysmenorrhea - Menstruation Additional comments: LMP February 2016 - Musculoskeletal Musculoskeletal: absent: Deformity, Limited Range of Motion - Integumentary Integumentary: Dry Skin. absent: Bleeding Lesions, Pruritus, Rash, Skin Ulcer - Neurological Neurological: Convulsions (recent onset). absent: Headaches, Loss of Vision, Memory Loss - Psychiatric Psychiatric: absent: Homicidal Ideation, Suicidal Ideation Past Patient History - Past Medical History & Family History Past Medical History?: Yes - Past Social History Smoking Status: Former Smoker - CARDIAC Hx Cardiac Disorders: Yes Hx Cardia Arrhythmia: Yes Hx Hypertension: Yes Hx Pacemaker: Yes - PULMONARY Hx Respiratory Disorders: Yes Hx Chronic Obstructive Pulmonary Disease (COPD): Yes - NEUROLOGICAL Hx Neurological Disorder: Yes Hx Seizures: Yes - HEENT Hx HEENT Problems: No - RENAL Hx Chronic Kidney Disease: No - ENDOCRINE/METABOLIC Hx Endocrine Disorders: Yes Hx Diabetes Mellitus Type 2: Yes - HEMATOLOGICAL/ONCOLOGICAL Hx Blood Disorders: No Hx Human Immunodeficiency Virus (HIV): No - INTEGUMENTARY Hx Dermatological Problems: No - MUSCULOSKELETAL/RHEUMATOLOGICAL Hx Falls: Yes - GASTROINTESTINAL Hx Gastrointestinal Disorders: No - GENITOURINARY/GYNECOLOGICAL Hx Genitourinary Disorders: No - PSYCHIATRIC Hx Anxiety: Yes Hx Depression: Yes Hx Substance Use: Yes - SURGICAL HISTORY Hx Surgeries: Yes Hx Cholecystectomy: Yes Hx Coronary Artery Bypass Graft: Yes - ANESTHESIA Hx Anesthesia: Yes Hx Anesthesia Reactions: No Meds Allergies/Adverse Reactions: Allergies Allergy/AdvReac Type Severity Reaction Status Date / Time amitriptyline HCl Allergy ITCHING Verified 12/06/16 21:12 [From Elavil] duloxetine HCl Allergy ITCHING Verified 12/06/16 21:12 [From Cymbalta] gabapentin [From Neurontin] Allergy ITCHING Verified 12/06/16 21:12 metformin Allergy ITCHING Verified 12/06/16 21:12 methotrexate Allergy ITCHING Verified 12/06/16 21:12 soy Allergy ITCHING Verified 12/06/16 21:12 - Medications Medications: Current Medications Acetaminophen (Tylenol 325mg Tab) 650 mg PO Q4 PRN PRN Reason: pain 4-7 Last Admin: 12/11/16 22:55 Dose: 650 mg Al Hydrox/Mg Hydrox/Simethicone (Maalox Plus 30 Ml) 30 ml PO Q4 PRN PRN Reason: Dyspepsia Last Admin: 12/11/16 23:00 Dose: 30 ml Calcium Carbonate (Oscal) 500 mg PO BID [facility] Last Admin: 12/12/16 08:52 Dose: 500 mg Diphenhydramine HCl (Benadryl) 50 mg PO Q6 PRN PRN Reason: Extrapyramidal Symptoms Last Admin: 12/11/16 21:45 Dose: 50 mg Diphenhydramine HCl (Benadryl) 50 mg PO HS PRN PRN Reason: Sleep Diphenhydramine HCl (Benadryl) 50 mg IM Q6 PRN PRN Reason: Extrapyramidal S/S Unable PO Divalproex Sodium (Depakote Dr(*Bid*)) 500 mg PO BID [facility] Last Admin: 12/12/16 08:55 Dose: 500 mg Fluconazole (Diflucan) 100 mg PO DAILY [facility] Last Admin: 12/12/16 08:53 Dose: 100 mg Fluoxetine HCl (Prozac) 20 mg PO DAILY [facility] Haloperidol (Haldol) 5 mg PO Q4 PRN PRN Reason: Agitation Haloperidol Lactate (Haldol) 5 mg IM Q4 PRN PRN Reason: Agitation, Unable to Take PO Insulin Detemir (Levemir) 40 units SC HS [facility] Last Admin: 12/11/16 22:56 Dose: 40 unit Insulin Human Lispro (Humalog) 0 units SC [facility] PRN Reason: Protocol Isosorbide Mononitrate (Imdur) 30 mg PO DAILY [facility] Last Admin: 12/12/16 08:54 Dose: 30 mg Lisinopril (Zestril) 5 mg PO DAILY [facility] Last Admin: 12/12/16 08:54 Dose: 5 mg Lorazepam (Ativan) 2 mg PO Q4 PRN PRN Reason: Anxiety/Agitation Last Admin: 12/12/16 02:57 Dose: 2 mg Lorazepam (Ativan) 2 mg IM Q4 PRN PRN Reason: Anxiety/Agitation,Unable PO Magnesium Hydroxide (Milk Of Magnesia) 30 ml PO HS PRN PRN Reason: Constipation Metoprolol Tartrate (Lopressor) 25 mg PO DAILY [facility] Montelukast Sodium (Singulair) 10 mg PO HS [facility] Last Admin: 12/11/16 22:55 Dose: 10 mg Ondansetron HCl (Zofran Inj) 4 mg IM Q4 PRN PRN Reason: Nausea/Vomiting Pantoprazole Sodium (Protonix Ec Tab) 40 mg PO DAILY [facility] Last Admin: 12/12/16 08:52 Dose: 40 mg Potassium Chloride (K-Dur 20 Meq Er Tab) 40 meq PO DAILY [facility] Last Admin: 12/12/16 08:56 Dose: 40 meq Risperidone (Risperdal Tab) 0.5 mg PO BID [facility] Last Admin: 12/12/16 08:58 Dose: 0.5 mg Sitagliptin Phosphate (Januvia) 100 mg PO DAILY [facility] Last Admin: 12/12/16 08:58 Dose: 100 mg Physical Exam - Constitutional Appears: Non-toxic (obese, ), No Acute Distress - Head Exam Head Exam: ATRAUMATIC, NORMOCEPHALIC - Eye Exam Eye Exam: EOMI - ENT Exam ENT Exam: Mucous Membranes Moist - Neck Exam Neck exam: Negative for: Lymphadenopathy - Respiratory Exam Respiratory Exam: Clear to Auscultation Bilateral - Cardiovascular Exam Cardiovascular Exam: REGULAR RHYTHM. absent: Gallop, Systolic Murmur - GI/Abdominal Exam GI & Abdominal Exam: Normal Bowel Sounds, Soft (obese). absent: Distended, Guarding, Tenderness (to palpation) - Exam Speculum exam: Vaginal Bleeding (bright red, moderated amount from cervical os, no lesions on cervix, vaginal mucosa wnl, external genitalia wnl) - Extremities Exam Extremities exam: Positive for: full ROM, pedal pulses present (2+ bilateral). Negative for: pedal edema - Back Exam Back exam: absent: CVA tenderness (L), CVA tenderness (R) - Neurological Exam Neurological exam: Alert - Psychiatric Exam Psychiatric exam: Normal Affect, Normal Mood - Skin Skin Exam: Dry, Intact, Normal Color Results - Vital Signs Recent Vital Signs: Last Vital Signs Temp Pulse 66 12/11/16 19:47 Resp 20 12/11/16 19:47 BP Pulse Ox - Labs Labs: Laboratory Results - last 24 hr 12/12/16 12/12/16 12/12/16 06:57 07:29 07:29 POC Glucose (mg/dL) 196 H Iron 29 L TIBC 399 % Saturation 7 L Ferritin 11.9 Triglycerides 257 H D Cholesterol 231 H LDL Cholesterol Direct 135 H HDL Cholesterol 50 Vitamin B12 524 Total T3 1.00 L Assessment & Plan - Assessment and Plan (Free Text) Assessment: 1. Postmenopausal bleeding -Transvaginal US ordered to measure endometrial stripe, will follow up result -if endometrial stripe > 5mm, will consider endometrial biopsy -case Discussed with Dr. Ware <Pedro Ware - Last Filed: 12/13/16 06:50> Meds - Medications Medications: Current Medications Acetaminophen (Tylenol 325mg Tab) 650 mg PO Q4 PRN PRN Reason: pain 4-7 Last Admin: 12/11/16 22:55 Dose: 650 mg Al Hydrox/Mg Hydrox/Simethicone (Maalox Plus 30 Ml) 30 ml PO Q4 PRN PRN Reason: Dyspepsia Last Admin: 12/11/16 23:00 Dose: 30 ml Albuterol/Ipratropium (Duoneb 3 Mg/0.5 Mg (3 Ml) Ud) 3 ml INH RQ6 PRN PRN Reason: Shortness of Breath Atorvastatin Calcium (Lipitor) 10 mg PO HS [facility] Last Admin: 12/12/16 21:15 Dose: 10 mg Calcium Carbonate (Oscal) 500 mg PO BID [facility] Last Admin: 12/12/16 17:12 Dose: 500 mg Diphenhydramine HCl (Benadryl) 50 mg PO Q6 PRN PRN Reason: Extrapyramidal Symptoms Last Admin: 12/11/16 21:45 Dose: 50 mg Diphenhydramine HCl (Benadryl) 50 mg PO HS PRN PRN Reason: Sleep Diphenhydramine HCl (Benadryl) 50 mg IM Q6 PRN PRN Reason: Extrapyramidal S/S Unable PO Divalproex Sodium (Depakote Dr(*Bid*)) 500 mg PO BID [facility] Last Admin: 12/12/16 17:11 Dose: 500 mg Fluconazole (Diflucan) 100 mg PO DAILY [facility] Last Admin: 12/12/16 08:53 Dose: 100 mg Fluoxetine HCl (Prozac) 40 mg PO DAILY [facility] Haloperidol (Haldol) 5 mg PO Q4 PRN PRN Reason: Agitation Haloperidol Lactate (Haldol) 5 mg IM Q4 PRN PRN Reason: Agitation, Unable to Take PO Ibuprofen (Motrin Tab) 600 mg PO Q6 PRN PRN Reason: Pain, Mild (1-3) Insulin Detemir (Levemir) 40 units SC HS [facility] Last Admin: 12/12/16 21:21 Dose: 40 unit Insulin Human Lispro (Humalog) 0 units SC [facility] PRN Reason: Protocol Last Admin: 12/12/16 21:19 Dose: Not Given Insulin Lispro Protam/Lispro Human (Humalog Mix 75/25) 6 units SC [facility] Isosorbide Mononitrate (Imdur) 30 mg PO DAILY [facility] Last Admin: 12/12/16 08:54 Dose: 30 mg Lisinopril (Zestril) 5 mg PO DAILY [facility] Last Admin: 12/12/16 08:54 Dose: 5 mg Loperamide HCl (Imodium) 2 mg PO QID PRN PRN Reason: Diarrhea Lorazepam (Ativan) 2 mg PO Q4 PRN PRN Reason: Anxiety/Agitation Last Admin: 12/12/16 02:57 Dose: 2 mg Lorazepam (Ativan) 2 mg IM Q4 PRN PRN Reason: Anxiety/Agitation,Unable PO Magnesium Hydroxide (Milk Of Magnesia) 30 ml PO HS PRN PRN Reason: Constipation Metoprolol Tartrate (Lopressor) 25 mg PO DAILY [facility] Last Admin: 12/12/16 08:58 Dose: 25 mg Montelukast Sodium (Singulair) 10 mg PO HS [facility] Last Admin: 12/12/16 21:15 Dose: 10 mg Ondansetron HCl (Zofran Inj) 4 mg IM Q4 PRN PRN Reason: Nausea/Vomiting Pantoprazole Sodium (Protonix Ec Tab) 40 mg PO DAILY [facility] Last Admin: 12/12/16 08:52 Dose: 40 mg Potassium Chloride (K-Dur 20 Meq Er Tab) 40 meq PO DAILY [facility] Last Admin: 12/12/16 08:56 Dose: 40 meq Risperidone (Risperdal Tab) 1 mg PO Q12 [facility] Last Admin: 12/12/16 21:15 Dose: 1 mg Sitagliptin Phosphate (Januvia) 100 mg PO DAILY [facility] Last Admin: 12/12/16 08:58 Dose: 100 mg Results - Vital Signs Recent Vital Signs: Last Vital Signs Temp 97.1 F L 12/13/16 05:53 Pulse 96 H 12/13/16 05:53 Resp 18 12/13/16 05:53 BP 129/66 12/13/16 05:53 Pulse Ox - Labs Labs: Laboratory Results - last 24 hr 12/12/16 12/12/16 12/12/16 06:57 07:29 07:29 POC Glucose (mg/dL) 196 H Iron 29 L TIBC 399 % Saturation 7 L Ferritin 11.9 Triglycerides 257 H D Cholesterol 231 H LDL Cholesterol Direct 135 H HDL Cholesterol 50 Vitamin B12 524 Folate 12.6 Total T3 1.00 L RPR 12/12/16 12/12/16 12/12/16 07:29 11:00 15:46 POC Glucose (mg/dL) 310 H 302 H Iron TIBC % Saturation Ferritin Triglycerides Cholesterol LDL Cholesterol Direct HDL Cholesterol Vitamin B12 Folate Total T3 RPR Nonreactive 12/12/16 12/13/16 20:02 06:02 POC Glucose (mg/dL) 248 H 231 H Iron TIBC % Saturation Ferritin Triglycerides Cholesterol LDL Cholesterol Direct HDL Cholesterol Vitamin B12 Folate Total T3 RPR Assessment & Plan - Assessment and Plan (Free Text) Plan: OB Hospitalist note: Pt and case examined and rev'd Dec 12 12pm... Agree with above note. NUBIAO - Date & Time Date: 12/13/16 Time: 06:45
--- NOTE | 2016-12-12 10:23 | PCM.PSYCH ---
Initial Psychiatric Evaluation - Initial Psychiatric Evaluation Type of Admission: Voluntary Legal Status: Capacity Chief Complaint (in patient's own words): "Dr. Brett Guzman took his life in front of me" Patient's Reaction to Hospitalization: HPI: 56 year old female, with a past medical history of hypertension, diabetes mellitus, depression, appears to have a severe persistent mental illness- MMD with psychosis vs Schizoaffective disorder. She was recently hospitalized with seizures. She is now presenting with delusions that her neighbor and a [place] [facility] [place] of her and . She reports she "went blind last week after my seizure...but now i am starting to see." It is unclear if she has visual hallucinations. She reports she does not have any psychiatric providers as she is [place] [facility] [place] killed himself in front of her. No suicidal ideation/plan/intent. +Depressed mood, + anxiety, +delusions, +AH PMHx: Hypertension, diabetes mellitus, depression, seizure disorder PPHx: Recent [place] [facility] [place] w/ psychotic features, as per chart treated with Prozac 40 daily and Risperdal 0.5 mg PO BID. She states she has been in PHP programs, but they did not help. States she can recall 2 previous psych admissions. Reports a prior suicide attempt several years ago when put on Cymbalta. PMD: Dr. Garcia All: Amitriptyline, Duloxetine, Gabapentin, Meformin FHx: Uncle with Alzheimers disease Social history: Lives in [place] with her son, Ricardo. 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 States she used some illicit drugs in her youth, but could not provide details. Current Medications: Active Medications Generic Name Dose Route Start Last Admin Trade Name Freq PRN Reason Stop Dose Admin Acetaminophen 650 mg 12/11/16 20:18 12/11/16 22:55 Tylenol 325mg Tab PO 650 mg Q4 PRN Administration pain 4-7 Al Hydrox/Mg Hydrox/Simethicone 30 ml 12/11/16 21:55 12/11/16 23:00 Maalox Plus 30 Ml PO 30 ml Q4 PRN Administration Dyspepsia Calcium Carbonate 500 mg 12/12/16 09:00 12/12/16 08:52 Oscal PO 500 mg BID [facility] Administration Diphenhydramine HCl 50 mg 12/11/16 20:18 12/11/16 21:45 Benadryl PO 50 mg Q6 PRN Administration Extrapyramidal Symptoms Diphenhydramine HCl 50 mg 12/11/16 20:18 Benadryl PO HS PRN Sleep Diphenhydramine HCl 50 mg 12/11/16 20:18 Benadryl IM Q6 PRN Extrapyramidal S/S Unable PO Divalproex Sodium 500 mg 12/12/16 09:00 12/12/16 08:[address](*Bid*) PO 500 mg BID [facility] Administration Fluconazole 100 mg 12/12/16 09:00 12/12/16 08:53 Diflucan PO 100 mg DAILY [facility] Administration Fluoxetine HCl 20 mg 12/12/16 09:00 12/12/16 08:59 Prozac PO 20 mg DAILY [facility] Administration Haloperidol 5 mg 12/11/16 20:18 Haldol PO Q4 PRN Agitation Haloperidol Lactate 5 mg 12/11/16 20:18 Haldol IM Q4 PRN Agitation, Unable to Take PO Insulin Detemir 40 units 12/11/16 22:15 12/11/16 22:56 Levemir SC 40 unit HS [facility] Administration Insulin Human Lispro 0 units 12/12/16 07:30 Humalog SC ACHS [facility] Protocol Isosorbide Mononitrate 30 mg 12/12/16 09:00 12/12/16 08:54 Imdur PO 30 mg DAILY [facility] Administration Lisinopril 5 mg 12/12/16 09:00 12/12/16 08:54 Zestril PO 5 mg DAILY [facility] Administration Loperamide HCl 2 mg 12/12/16 10:01 Imodium PO QID PRN Diarrhea Lorazepam 2 mg 12/11/16 20:18 12/12/16 02:57 Ativan PO 2 mg Q4 PRN Administration Anxiety/Agitation Lorazepam 2 mg 12/11/16 20:18 Ativan IM Q4 PRN Anxiety/Agitation,Unable PO Magnesium Hydroxide 30 ml 12/11/16 20:18 Milk Of Magnesia PO HS PRN Constipation Metoprolol Tartrate 25 mg 12/12/16 09:00 12/12/16 08:58 Lopressor PO 25 mg DAILY [facility] Administration Montelukast Sodium 10 mg 12/11/16 22:15 12/11/16 22:55 Singulair PO 10 mg HS [facility] Administration Ondansetron HCl 4 mg 12/11/16 22:11 Zofran Inj IM Q4 PRN Nausea/Vomiting Pantoprazole Sodium 40 mg 12/12/16 09:00 12/12/16 08:52 Protonix Ec Tab PO 40 mg DAILY [facility] Administration Potassium Chloride 40 meq 12/12/16 09:00 12/12/16 08:56 K-Dur 20 Meq Er Tab PO 40 meq DAILY [facility] Administration Risperidone 1 mg 12/12/16 21:00 Risperdal Tab PO Q12 [facility] Sitagliptin Phosphate 100 mg 12/12/16 09:00 12/12/16 08:58 Januvia PO 100 mg DAILY [facility] Administration Past Psychiatric History - Past Psychiatric History Previous Treatment History: Inpatient Pertinent Medical Hx (Current Medical&Sleep Prob, Allergies): Allergies Allergy/AdvReac Type Severity Reaction Status Date / Time amitriptyline HCl Allergy ITCHING Verified 12/06/16 21:12 [From Elavil] duloxetine HCl Allergy ITCHING Verified 12/06/16 21:12 [From Cymbalta] gabapentin [From Neurontin] Allergy ITCHING Verified 12/06/16 21:12 metformin Allergy ITCHING Verified 12/06/16 21:12 methotrexate Allergy ITCHING Verified 12/06/16 21:12 soy Allergy ITCHING Verified 12/06/16 21:12 Calcium Carbonate [Oscal] 1 tab PO BID 12/02/16 FLUoxetine [Prozac] 1 tab PO DAILY 12/02/16 Fluconazole [Diflucan] 1 tab PO DAILY 12/02/16 Isosorbide Mononitrate [Imdur] 1 tab PO DAILY 12/02/16 Metoprolol Tartrate [Lopressor] 1 tab PO DAILY 12/02/16 Morphine [Morphine Immediate Release Tab] 1 tab PO Q12H 12/02/16 Divalproex [Depakote DR (*BID*)] 500 mg PO BID #60 tcp 12/05/16 Insulin Aspart [Novolog Flexpen] 15 units SC TID 30 Days 12/05/16 Insulin Detemir [Levemir] 40 units SC HS 30 Days 12/05/16 Lisinopril [Zestril] 1 tab PO DAILY #30 tab 12/05/16 Montelukast [Singulair] 1 tab PO HS #30 tab 12/05/16 Pantoprazole Sodium [Protonix] 1 tab PO DAILY #30 tablet. 12/05/16 Potassium Chloride [K-Tab ER] 40 meq PO DAILY #7 tablet.er 12/05/16 Risperidone [Risperdal] 0.5 tab PO BID #60 tablet 12/05/16 SITagliptin [Januvia] 100 mg PO DAILY #30 tab 12/05/16 Review of Systems - Review of Systems All systems: reviewed and no additional remarkable complaints except - Psychiatric Psychiatric: As Per HPI, Anxiety, Auditory Hallucinations, Depression, Hallucinations, Other (Delusions) Mental Status Examination - Personal Presentation Personal Presentation: Looks stated age, Obese - Affect Affect: Constricted - Motor Activity Motor Activity: Calm - Reliability in Providing Information Reliability in Providing Information: Poor, due to alteration in thoughts - Speech Speech: Coherent - Mood Mood: Depressed, Anxious - Formal Thought Process Formal Thought Process: Hallucinations, Delusions - Hallucinations/Delusions Hallucinations: Auditory - Obsessions/Compulsions Obsessions: No Compulsions: No - Cognitive Functions Orientation: Person, Place, Situation, Time Sensorium: Alert Attention/Concentration: Attentive Estimate of Intelligence: Average Judgement: Intact, as evidence by: Insight regarding need for hospitalization Memory: Recent intact, as evidence by: Ability to recall events of the day - Risk Risk: Diminished functioning - Strength & Assets Inventory Strength & Assets Inventory: Cooperative DSM 5 DX - DSM 5 DSM 5 Diagnosis: Schizoaffective Disorder - Recommended/Plan of Treatment Treatment Recommendations and Plan of Treatment: 56 yo female w/ h/o MDD w/ psychotic features vs. schizoaffective disorder, presents w/ AH, delusions, depressed mood and anxiety, needs inpatient admission for treatment and stabilization. -Admit to [facility] -Medicine consult -Resume Prozac 40 mg PO Daily -Increase Risperdal to 1 mg PO Q12 hr -Individual and group therapy -Check VPA level Projected ELOS: 5-7 days Discharge Plan and Discharge Criteria: Discharge when psychiatrically stable
[2016-12-12] MEDS: Insulin Lispro (humaLOG) 100 Units/ml Inj SC SCH ×5 (11:50→21:19)
--- NOTE | 2016-12-12 14:09 | CP.PCM.CON ---
History of Present Illness - History of Present Illness History of Present Illness: CC: Medical consult for Multiple chronic disease in the Psychiatric Unit. 56 y/o F admitted previously to Med/Sug floor [facility] [place] for Abdominal pain, DM with Hyperglycemia, HTN, COPD, recent Seizure. After Psychiatric evaluation on 12/11/16, Pt was admitted to Psychiatric unit due to Psychotic features vs Schizophrenia, Major depressive disorder Pt denied: Fever, chills, no abdominal pain, n/v/d, dizziness, syncope, seizure , SOB, CP. PMHx: Seizure Disorder, AMS, COPD, IDDM, Hyperglycemia, HTN, Cardiac arrhythmia , Obesity, Hx of CABG, L PPM, Bipolar Disorder, Schizophrenia, Major Depression , Anxiety. Currently with vaginal bleeding seen by [employer] PROJECT MANAGER. Pt awake, no cough, no SOB, no abdominal pain, V/S stable. BS: 302. Review of Systems - Constitutional Constitutional: Other (negative) - EENT Eyes: Other (negative) Ears: Other (negative) Nose/Mouth/Throat: Other (negative) - Cardiovascular Cardiovascular: Rapid Heart Rate - Respiratory Respiratory: Other (negative) - Gastrointestinal Gastrointestinal: Other (negative) - Genitourinary Genitourinary: Urinary Incontinence - Musculoskeletal Musculoskeletal: Arthralgias - Integumentary Integumentary: Other (negative) - Neurological Neurological: Other (negative) - Psychiatric Psychiatric: Anxiety, Depression - Endocrine Endocrine: Other (negative) - Hematologic/Lymphatic Hematologic: Other (negative) Past Patient History - Past Medical History & Family History Past Medical History?: Yes Pertinent Family History: Unknown - Past Social History Smoking Status: Former Smoker Alcohol: None Drugs: Denies Home Situation {Lives}: With Family - CARDIAC Hx Cardiac Disorders: Yes Hx Cardia Arrhythmia: Yes Hx Hypertension: Yes Hx Pacemaker: Yes - PULMONARY Hx Respiratory Disorders: Yes Hx Chronic Obstructive Pulmonary Disease (COPD): Yes - NEUROLOGICAL Hx Neurological Disorder: Yes Hx Seizures: Yes - HEENT Hx HEENT Problems: No - RENAL Hx Chronic Kidney Disease: No - ENDOCRINE/METABOLIC Hx Endocrine Disorders: Yes Hx Diabetes Mellitus Type 2: Yes - HEMATOLOGICAL/ONCOLOGICAL Hx Blood Disorders: No Hx Human Immunodeficiency Virus (HIV): No - INTEGUMENTARY Hx Dermatological Problems: No - MUSCULOSKELETAL/RHEUMATOLOGICAL Hx Musculoskeletal Disorders: Yes Hx Falls: Yes - GASTROINTESTINAL Hx Gastrointestinal Disorders: No - GENITOURINARY/GYNECOLOGICAL Hx Genitourinary Disorders: Yes Hx Incontinence: Yes - PSYCHIATRIC Hx Psychophysiologic Disorder: Yes Hx Anxiety: Yes Hx Bipolar Disorder: Yes Hx Depression: Yes Hx Substance Use: Yes - SURGICAL HISTORY Hx Surgeries: Yes Hx Cholecystectomy: Yes Hx Coronary Artery Bypass Graft: Yes - ANESTHESIA Hx Anesthesia: Yes Hx Anesthesia Reactions: No Meds Allergies/Adverse Reactions: Allergies Allergy/AdvReac Type Severity Reaction Status Date / Time amitriptyline HCl Allergy ITCHING Verified 12/06/16 21:12 [From Elavil] duloxetine HCl Allergy ITCHING Verified 12/06/16 21:12 [From Cymbalta] gabapentin [From Neurontin] Allergy ITCHING Verified 12/06/16 21:12 metformin Allergy ITCHING Verified 12/06/16 21:12 methotrexate Allergy ITCHING Verified 12/06/16 21:12 soy Allergy ITCHING Verified 12/06/16 21:12 - Medications Medications: Current Medications Acetaminophen (Tylenol 325mg Tab) 650 mg PO Q4 PRN PRN Reason: pain 4-7 Last Admin: 12/11/16 22:55 Dose: 650 mg Al Hydrox/Mg Hydrox/Simethicone (Maalox Plus 30 Ml) 30 ml PO Q4 PRN PRN Reason: Dyspepsia Last Admin: 12/11/16 23:00 Dose: 30 ml Calcium Carbonate (Oscal) 500 mg PO BID [facility] Last Admin: 12/12/16 08:52 Dose: 500 mg Diphenhydramine HCl (Benadryl) 50 mg PO Q6 PRN PRN Reason: Extrapyramidal Symptoms Last Admin: 12/11/16 21:45 Dose: 50 mg Diphenhydramine HCl (Benadryl) 50 mg PO HS PRN PRN Reason: Sleep Diphenhydramine HCl (Benadryl) 50 mg IM Q6 PRN PRN Reason: Extrapyramidal S/S Unable PO Divalproex Sodium (Depakote Dr(*Bid*)) 500 mg PO BID [facility] Last Admin: 12/12/16 08:55 Dose: 500 mg Fluconazole (Diflucan) 100 mg PO DAILY [facility] Last Admin: 12/12/16 08:53 Dose: 100 mg Fluoxetine HCl (Prozac) 40 mg PO DAILY [facility] Haloperidol (Haldol) 5 mg PO Q4 PRN PRN Reason: Agitation Haloperidol Lactate (Haldol) 5 mg IM Q4 PRN PRN Reason: Agitation, Unable to Take PO Insulin Detemir (Levemir) 40 units SC [facility] Last Admin: 12/11/16 22:56 Dose: 40 unit Insulin Human Lispro (Humalog) 0 units SC [facility] PRN Reason: Protocol Last Admin: 12/12/16 11:51 Dose: 8 u Isosorbide Mononitrate (Imdur) 30 mg PO DAILY [facility] Last Admin: 12/12/16 08:54 Dose: 30 mg Lisinopril (Zestril) 5 mg PO DAILY [facility] Last Admin: 12/12/16 08:54 Dose: 5 mg Loperamide HCl (Imodium) 2 mg PO QID PRN PRN Reason: Diarrhea Lorazepam (Ativan) 2 mg PO Q4 PRN PRN Reason: Anxiety/Agitation Last Admin: 12/12/16 02:57 Dose: 2 mg Lorazepam (Ativan) 2 mg IM Q4 PRN PRN Reason: Anxiety/Agitation,Unable PO Magnesium Hydroxide (Milk Of Magnesia) 30 ml PO HS PRN PRN Reason: Constipation Metoprolol Tartrate (Lopressor) 25 mg PO DAILY [facility] Last Admin: 12/12/16 08:58 Dose: 25 mg Montelukast Sodium (Singulair) 10 mg PO [facility] Last Admin: 12/11/16 22:55 Dose: 10 mg Ondansetron HCl (Zofran Inj) 4 mg IM Q4 PRN PRN Reason: Nausea/Vomiting Pantoprazole Sodium (Protonix Ec Tab) 40 mg PO DAILY [facility] Last Admin: 12/12/16 08:52 Dose: 40 mg Potassium Chloride (K-Dur 20 Meq Er Tab) 40 meq PO DAILY [facility] Last Admin: 12/12/16 08:56 Dose: 40 meq Risperidone (Risperdal Tab) 1 mg PO Q12 [facility] Sitagliptin Phosphate (Januvia) 100 mg PO DAILY [facility] Last Admin: 12/12/16 08:58 Dose: 100 mg Physical Exam - Constitutional Appears: No Acute Distress - Head Exam Head Exam: NORMAL INSPECTION - Eye Exam Eye Exam: PERRL - ENT Exam ENT Exam: Normal Oropharynx - Neck Exam Neck exam: Positive for: Normal Inspection - Respiratory Exam Respiratory Exam: NORMAL BREATHING PATTERN - Cardiovascular Exam Cardiovascular Exam: REGULAR RHYTHM Additional comments: PPM - GI/Abdominal Exam GI & Abdominal Exam: Soft, Tenderness (to palpation epigastric area). absent: Guarding, Rebound - Extremities Exam Extremities exam: Positive for: normal inspection - Back Exam Back exam: NORMAL INSPECTION - Neurological Exam Neurological exam: Alert, Oriented x3 Additional comments: No motor sensory deficit. - Psychiatric Exam Psychiatric exam: Anxious - Skin Skin Exam: Warm Results - Vital Signs Recent Vital Signs: Last Vital Signs Temp Pulse 99 H 12/12/16 06:00 Resp 20 12/12/16 06:00 BP 125/74 12/12/16 06:00 Pulse Ox reviewed J.P. - Labs Result Diagrams: 12/13/16 06:39 Labs: Laboratory Results - last 24 hr 12/12/16 12/12/16 12/12/16 06:57 07:29 07:29 POC Glucose (mg/dL) 196 H Iron 29 L TIBC 399 % Saturation 7 L Ferritin 11.9 Triglycerides 257 H D Cholesterol 231 H LDL Cholesterol Direct 135 H HDL Cholesterol 50 Vitamin B12 524 Total T3 1.00 L 12/12/16 11:00 POC Glucose (mg/dL) 310 H Iron TIBC % Saturation Ferritin Triglycerides Cholesterol LDL Cholesterol Direct HDL Cholesterol Vitamin B12 Total T3 reviewed J.P. Assessment & Plan (1) IDDM (insulin dependent diabetes mellitus) Status: Chronic Priority: High (2) Hyperglycemia Status: Chronic Priority: High (3) COPD (chronic obstructive pulmonary disease) Status: Chronic Priority: Medium (4) HTN (hypertension) Status: Chronic Priority: Medium (5) Dyslipidemia Status: Chronic Priority: High (6) Post-menopausal bleeding Status: Acute - Assessment and Plan (Free Text) Plan: Continue Levemir, Humalog, K dur, Lopressor,Lipitor and rest of Tx.[employer] PROJECT MANAGER consult appreciated. - Date & Time Date: 12/12/16 Time: 12:30
[2016-12-12 17:35] LABS: FOLATE 12.6 ng/mL
--- NOTE | 2016-12-12 19:08 | US ---
HISTORY: vaginal bleeding COMPARISON: None. TECHNIQUE: Transvaginal pelvic ultrasound FINDINGS: UTERUS: Measures 6.7 x 4.3 x 4.3 cm. Anteverted. ENDOMETRIUM: Measures 7 mm in diameter. CERVIX: No cervical abnormality identified. RIGHT OVARY: Measures 3.0 x 1.7 x 1.7 cm. 0.8 x 0.6 x 0.8 cm cyst. Blood flow is demonstrated to the right ovary. LEFT OVARY: Measures 3.3 x 2.2 x 2.7 cm. 2.2 x 2.3 x 1.6 cm left adnexal cyst. Blood flow is demonstrated to the left ovary. FREE FLUID: No significant free fluid noted. OTHER FINDINGS: None. IMPRESSION: 2.2 cm left adnexal cyst. 0.8 cm right ovarian cyst. Recommend 6 week ultrasound follow-up to assess for resolution. Recommend further evaluation in postmenopausal patient with vaginal bleeding including gynecologic evaluation and hysteroscopy as indicated.
[2016-12-12] MEDS: Insulin Detemir 100 Units/ml Inj SC SCH (21:21)
--- NOTE | 2016-12-12 22:16 | CP.PCM.PN ---
<Gabriela Mccoy - Last Filed: 12/12/16 22:43> Subjective - Date & Time of Evaluation Date of Evaluation: 12/12/16 Time of Evaluation: 20:40 - Subjective Subjective: Patient sitting comfortably in bed, in no acute distress, reports having tolerated transvaginal US well. Discussed with patient findings of transvaginal US which included endometrium diameter of 7mm, discussed with patient our recommendation to do an endometrial biopsy and the benefits and risks of this procedure. Patient demonstrated understanding of procedure, reason for procedure and risks via teach back method. Patient had no other concerns or complaints at this time. Objective - Vital Signs/Intake and Output Vital Signs (last 24 hours): Temp Pulse Resp BP Pulse Ox 97.3 F L 100 H 20 119/72 12/12/16 16:16 12/12/16 16:16 12/12/16 16:16 12/12/16 16:16 - Medications Medications: Current Medications Acetaminophen (Tylenol 325mg Tab) 650 mg PO Q4 PRN PRN Reason: pain 4-7 Last Admin: 12/11/16 22:55 Dose: 650 mg Al Hydrox/Mg Hydrox/Simethicone (Maalox Plus 30 Ml) 30 ml PO Q4 PRN PRN Reason: Dyspepsia Last Admin: 12/11/16 23:00 Dose: 30 ml Albuterol/Ipratropium (Duoneb 3 Mg/0.5 Mg (3 Ml) Ud) 3 ml INH RQ6 PRN PRN Reason: Shortness of Breath Atorvastatin Calcium (Lipitor) 10 mg PO HS [facility] Last Admin: 12/12/16 21:15 Dose: 10 mg Calcium Carbonate (Oscal) 500 mg PO BID [facility] Last Admin: 12/12/16 17:12 Dose: 500 mg Diphenhydramine HCl (Benadryl) 50 mg PO Q6 PRN PRN Reason: Extrapyramidal Symptoms Last Admin: 12/11/16 21:45 Dose: 50 mg Diphenhydramine HCl (Benadryl) 50 mg PO HS PRN PRN Reason: Sleep Diphenhydramine HCl (Benadryl) 50 mg IM Q6 PRN PRN Reason: Extrapyramidal S/S Unable PO Divalproex Sodium (Depakote Dr(*Bid*)) 500 mg PO BID [facility] Last Admin: 12/12/16 17:11 Dose: 500 mg Fluconazole (Diflucan) 100 mg PO DAILY [facility] Last Admin: 12/12/16 08:53 Dose: 100 mg Fluoxetine HCl (Prozac) 40 mg PO DAILY [facility] Haloperidol (Haldol) 5 mg PO Q4 PRN PRN Reason: Agitation Haloperidol Lactate (Haldol) 5 mg IM Q4 PRN PRN Reason: Agitation, Unable to Take PO Insulin Detemir (Levemir) 40 units SC HS [facility] Last Admin: 12/12/16 21:21 Dose: 40 unit Insulin Human Lispro (Humalog) [address] [facility] PRN Reason: Protocol Last Admin: 12/12/16 21:19 Dose: Not Given Insulin Lispro Protam/Lispro Human (Humalog Mix 75/25) 6 units SC ACBD [facility] Isosorbide Mononitrate (Imdur) 30 mg PO DAILY [facility] Last Admin: 12/12/16 08:54 Dose: 30 mg Lisinopril (Zestril) 5 mg PO DAILY [facility] Last Admin: 12/12/16 08:54 Dose: 5 mg Loperamide HCl (Imodium) 2 mg PO QID PRN PRN Reason: Diarrhea Lorazepam (Ativan) 2 mg PO Q4 PRN PRN Reason: Anxiety/Agitation Last Admin: 12/12/16 02:57 Dose: 2 mg Lorazepam (Ativan) 2 mg IM Q4 PRN PRN Reason: Anxiety/Agitation,Unable PO Magnesium Hydroxide (Milk Of Magnesia) 30 ml PO HS PRN PRN Reason: Constipation Metoprolol Tartrate (Lopressor) 25 mg PO DAILY [facility] Last Admin: 12/12/16 08:58 Dose: 25 mg Montelukast Sodium (Singulair) 10 mg PO HS [facility] Last Admin: 12/12/16 21:15 Dose: 10 mg Ondansetron HCl (Zofran Inj) 4 mg IM Q4 PRN PRN Reason: Nausea/Vomiting Pantoprazole Sodium (Protonix Ec Tab) 40 mg PO DAILY [facility] Last Admin: 12/12/16 08:52 Dose: 40 mg Potassium Chloride (K-Dur 20 Meq Er Tab) 40 meq PO DAILY [facility] Last Admin: 12/12/16 08:56 Dose: 40 meq Risperidone (Risperdal Tab) 1 mg PO Q12 [facility] Last Admin: 12/12/16 21:15 Dose: 1 mg Sitagliptin Phosphate (Januvia) 100 mg PO DAILY [facility] Last Admin: 12/12/16 08:58 Dose: 100 mg - Constitutional Appears: Non-toxic, No Acute Distress - Exam Speculum exam: Vaginal Bleeding (moderate, sterile vaginal speculum exam, cervix wiped with sponge soaked with povidone-iodine solution, sterile [employer] endometrial sampler inserted into cervical os, endometrial sample obtained) Assessment and Plan - Assessment and Plan (Free Text) Assessment: 1. Postmenopausal bleeding -Transvaginal US 12/12/16: endometrium diameter 7mm -Endometrial biopsy done, sample sent to lab for pathology, patient tolerated procedure well -Motrin 600mg PO Q6 PRN pain (scale 1-3) -will follow up results, patient to follow up as outpatient -Case discussed and Procedure done with Dr. Ware at bedside <Pedro Ware - Last Filed: 12/13/16 06:52> Objective - Vital Signs/Intake and Output Vital Signs (last 24 hours): Temp Pulse Resp BP Pulse Ox 97.1 F L 96 H 18 129/66 12/13/16 05:53 12/13/16 05:53 12/13/16 05:53 12/13/16 05:53 - Medications Medications: Current Medications Acetaminophen (Tylenol 325mg Tab) 650 mg PO Q4 PRN PRN Reason: pain 4-7 Last Admin: 12/11/16 22:55 Dose: 650 mg Al Hydrox/Mg Hydrox/Simethicone (Maalox Plus 30 Ml) 30 ml PO Q4 PRN PRN Reason: Dyspepsia Last Admin: 12/11/16 23:00 Dose: 30 ml Albuterol/Ipratropium (Duoneb 3 Mg/0.5 Mg (3 Ml) Ud) 3 ml INH RQ6 PRN PRN Reason: Shortness of Breath Atorvastatin Calcium (Lipitor) 10 mg PO HS [facility] Last Admin: 12/12/16 21:15 Dose: 10 mg Calcium Carbonate (Oscal) 500 mg PO BID [facility] Last Admin: 12/12/16 17:12 Dose: 500 mg Diphenhydramine HCl (Benadryl) 50 mg PO Q6 PRN PRN Reason: Extrapyramidal Symptoms Last Admin: 12/11/16 21:45 Dose: 50 mg Diphenhydramine HCl (Benadryl) 50 mg PO HS PRN PRN Reason: Sleep Diphenhydramine HCl (Benadryl) 50 mg IM Q6 PRN PRN Reason: Extrapyramidal S/S Unable PO Divalproex Sodium (Depakote Dr(*Bid*)) 500 mg PO BID [facility] Last Admin: 12/12/16 17:11 Dose: 500 mg Fluconazole (Diflucan) 100 mg PO DAILY [facility] Last Admin: 12/12/16 08:53 Dose: 100 mg Fluoxetine HCl (Prozac) 40 mg PO DAILY [facility] Haloperidol (Haldol) 5 mg PO Q4 PRN PRN Reason: Agitation Haloperidol Lactate (Haldol) 5 mg IM Q4 PRN PRN Reason: Agitation, Unable to Take PO Ibuprofen (Motrin Tab) 600 mg PO Q6 PRN PRN Reason: Pain, Mild (1-3) Insulin Detemir (Levemir) 40 units SC HS [facility] Last Admin: 12/12/16 21:21 Dose: 40 unit Insulin Human Lispro (Humalog) [address] [facility] PRN Reason: Protocol Last Admin: 12/12/16 21:19 Dose: Not Given Insulin Lispro Protam/Lispro Human (Humalog Mix 75/25) 6 units SC ACBD [facility] Isosorbide Mononitrate (Imdur) 30 mg PO DAILY [facility] Last Admin: 12/12/16 08:54 Dose: 30 mg Lisinopril (Zestril) 5 mg PO DAILY [facility] Last Admin: 12/12/16 08:54 Dose: 5 mg Loperamide HCl (Imodium) 2 mg PO QID PRN PRN Reason: Diarrhea Lorazepam (Ativan) 2 mg PO Q4 PRN PRN Reason: Anxiety/Agitation Last Admin: 12/12/16 02:57 Dose: 2 mg Lorazepam (Ativan) 2 mg IM Q4 PRN PRN Reason: Anxiety/Agitation,Unable PO Magnesium Hydroxide (Milk Of Magnesia) 30 ml PO HS PRN PRN Reason: Constipation Metoprolol Tartrate (Lopressor) 25 mg PO DAILY [facility] Last Admin: 12/12/16 08:58 Dose: 25 mg Montelukast Sodium (Singulair) 10 mg PO HS [facility] Last Admin: 12/12/16 21:15 Dose: 10 mg Ondansetron HCl (Zofran Inj) 4 mg IM Q4 PRN PRN Reason: Nausea/Vomiting Pantoprazole Sodium (Protonix Ec Tab) 40 mg PO DAILY [facility] Last Admin: 12/12/16 08:52 Dose: 40 mg Potassium Chloride (K-Dur 20 Meq Er Tab) 40 meq PO DAILY [facility] Last Admin: 12/12/16 08:56 Dose: 40 meq Risperidone (Risperdal Tab) 1 mg PO Q12 [facility] Last Admin: 12/12/16 21:15 Dose: 1 mg Sitagliptin Phosphate (Januvia) 100 mg PO DAILY [facility] Last Admin: 12/12/16 08:58 Dose: 100 mg Assessment and Plan - Assessment and Plan (Free Text) Plan: OB hospitalist oncall Informed consent obtained. under surface lay out technician, EBx was performed...follow results. If continued VB, re-consult and will consider D&C LORETA
[2016-12-13 06:58] LABS: BASO # 0.1 K/uL (0.0-0.2); BASO % 0.5 % (0.0-2.0); EOS % 0.3 % (0.0-4.0); HEMATOCRIT 38.5 % (34.0-47.0); LYMPH # 4.9 K/uL (1.0-4.3); LYMPH % 31.7 % (20.0-40.0); MEAN CELL VOLUME 74.9 fl (81.0-99.0); MEAN CORPUSCULAR HEMOGLOBIN 23.9 pg (27.0-31.0); MEAN PLATELET VOLUME 8.9 fl (7.2-11.7); MONO % 6.8 % (0.0-10.0); NEUT # 9.3 K/uL (1.8-7.0); NEUT % 60.7 % (50.0-75.0); NRBC % 0.1 % (0.0-0.0); RED CELL DISTRIBUTION WIDTH 17.6 % (11.5-14.5); WHITE BLOOD COUNT 15.4 K/uL (4.8-10.8)
[2016-12-13 07:21] LABS: T4 9.02 ug/dl (5.5-11.0)
[2016-12-13 07:35] LABS: THYROID STIMULATING HORMONE 1.06 mIU/ML (0.46-4.68)
[2016-12-13] MEDS: Potassium Chloride 20 mEq ER Tab PO SCH (08:36)
[2016-12-13] MEDS: Pantoprazole 40 mg EC Tab PO SCH (08:37)
[2016-12-13] MEDS: Divalproex 500 mg DR(BID formulation) PO SCH ×2 (08:39→16:31)
[2016-12-13] MEDS: Insulin Lispro (humaLOG) 100 Units/ml Inj SC SCH ×4 (08:48→21:53)
[2016-12-13] MEDS: Insulin Lispro Mix 75/25 100 units/ml (HumaLog) 10ml SC SCH ×2 (08:49→16:33)
--- NOTE | 2016-12-13 10:25 | PCM.PYCHPN ---
Psychiatric Progress Note - Psychiatric Progress Note Patient seen today, length of contact: Patient evaluated, case discussed with team, chart reviewed, 35 min Patient Chief Complaint: "It's not safe for me" Problems Identified/Issues Discussed: No significant events overnight. She continues to be paranoid and delusional, stating that she fears for her life because a hospice plan administrator knows how to make special compounds to kill her. She is calm and pleasant, but only able to engage in conversation about her various delusional beliefs. Diagnostic Results: VPA 12/13/16- 39.3 Medication Change: Yes (Increase Risperdal) Medical Record Reviewed: Yes Mental Status Examination - Cognitive Function Orientation: Person, Place, Situation, Time Memory: Intact Attention: WNL Concentration: WNL Association: Loose Fund of Knowledge: WNL - Mood Mood: Depressed, Anxious - Affect Affect: Constricted - Formal Thought Process Formal Thought Process: Hallucinations, Delusions Psychotic Thoughts and Behaviors: +Various paranoid delusions - Suicidal Ideation Suicidal Ideation: No - Homicidal Ideation Homicidal Ideation: No Goal/Treatment Plan - Goal/Treatment Plan Need for Continued Stay: Remain at risks for inpatient hospitalization, Severe depression anxiety, Discharge may exacerbated symptoms Progress Toward Problem(s) and Goals/Treatment Plan: 56 yo female w/ h/o MDD w/ psychotic features vs. schizoaffective disorder, presents w/ AH, delusions, depressed mood and anxiety, needs inpatient admission for treatment and stabilization. -Medicine consult -Continue Prozac 40 mg PO Daily -Increase Risperdal to 1 mg PO Daily/ 2 mg PO HS -Individual and group therapy -OB consult appreciated Estimated Date of D/C: 12/18/16 - Smoking Cessation Smoking Cessation Initiated: No Reason for not providing: Not indicated
--- NOTE | 2016-12-13 15:13 | CP.PCM.PN ---
Subjective - Date & Time of Evaluation Date of Evaluation: 12/13/16 Time of Evaluation: 11:45 - Subjective Subjective: F/U IDDM/HTN Pt awake, calm, c/o earlier of lower back pain intensity 7:10 Objective - Vital Signs/Intake and Output Vital Signs (last 24 hours): Temp Pulse Resp BP Pulse Ox 97.1 F L 94 H 18 151/52 H 12/13/16 05:53 12/13/16 08:37 12/13/16 05:53 12/13/16 08:37 - Medications Medications: Current Medications Acetaminophen (Tylenol 325mg Tab) 650 mg PO Q4 PRN PRN Reason: pain 4-7 Last Admin: 12/13/16 09:40 Dose: 650 mg Al Hydrox/Mg Hydrox/Simethicone (Maalox Plus 30 Ml) 30 ml PO Q4 PRN PRN Reason: Dyspepsia Last Admin: 12/11/16 23:00 Dose: 30 ml Albuterol/Ipratropium (Duoneb 3 Mg/0.5 Mg (3 Ml) Ud) 3 ml INH RQ6 PRN PRN Reason: Shortness of Breath Atorvastatin Calcium (Lipitor) 10 mg PO HS [facility] Last Admin: 12/12/16 21:15 Dose: 10 mg Calcium Carbonate (Oscal) 500 mg PO BID [facility] Last Admin: 12/13/16 08:37 Dose: 500 mg Diphenhydramine HCl (Benadryl) 50 mg PO Q6 PRN PRN Reason: Extrapyramidal Symptoms Last Admin: 12/11/16 21:45 Dose: 50 mg Diphenhydramine HCl (Benadryl) 50 mg PO HS PRN PRN Reason: Sleep Diphenhydramine HCl (Benadryl) 50 mg IM Q6 PRN PRN Reason: Extrapyramidal S/S Unable PO Divalproex Sodium (Depakote Dr(*Bid*)) 500 mg PO BID [facility] Last Admin: 12/13/16 08:39 Dose: 500 mg Fluconazole (Diflucan) 100 mg PO DAILY [facility] Last Admin: 12/13/16 08:39 Dose: 100 mg Fluoxetine HCl (Prozac) 40 mg PO DAILY [facility] Last Admin: 12/13/16 08:38 Dose: 40 mg Haloperidol (Haldol) 5 mg PO Q4 PRN PRN Reason: Agitation Haloperidol Lactate (Haldol) 5 mg IM Q4 PRN PRN Reason: Agitation, Unable to Take PO Ibuprofen (Motrin Tab) 600 mg PO Q6 PRN PRN Reason: Pain, Mild (1-3) Insulin Detemir (Levemir) 40 units SC HS [facility] Last Admin: 12/12/16 21:21 Dose: 40 unit Insulin Human Lispro (Humalog) 0 units SC [facility] PRN Reason: Protocol Last Admin: 12/13/16 12:08 Dose: 8 u Insulin Lispro Protam/Lispro Human (Humalog Mix 75/25) 6 units SC ACBD [facility] Last Admin: 12/13/16 08:49 Dose: 6 units Isosorbide Mononitrate (Imdur) 30 mg PO DAILY [facility] Last Admin: 12/13/16 08:37 Dose: 30 mg Lisinopril (Zestril) 5 mg PO DAILY [facility] Last Admin: 12/13/16 08:33 Dose: 5 mg Loperamide HCl (Imodium) 2 mg PO QID PRN PRN Reason: Diarrhea Lorazepam (Ativan) 2 mg PO Q4 PRN PRN Reason: Anxiety/Agitation Last Admin: 12/12/16 02:57 Dose: 2 mg Lorazepam (Ativan) 2 mg IM Q4 PRN PRN Reason: Anxiety/Agitation,Unable PO Magnesium Hydroxide (Milk Of Magnesia) 30 ml PO HS PRN PRN Reason: Constipation Metoprolol Tartrate (Lopressor) 25 mg PO DAILY [facility] Last Admin: 12/13/16 08:37 Dose: 25 mg Montelukast Sodium (Singulair) 10 mg PO HS [facility] Last Admin: 12/12/16 21:15 Dose: 10 mg Ondansetron HCl (Zofran Inj) 4 mg IM Q4 PRN PRN Reason: Nausea/Vomiting Pantoprazole Sodium (Protonix Ec Tab) 40 mg PO DAILY [facility] Last Admin: 12/13/16 08:37 Dose: 40 mg Potassium Chloride (K-Dur 20 Meq Er Tab) 40 meq PO DAILY [facility] Last Admin: 12/13/16 08:36 Dose: 40 meq Risperidone (Risperdal Tab) 1 mg PO DAILY [facility] Risperidone (Risperdal Tab) 2 mg PO HS [facility] Sitagliptin Phosphate (Januvia) 100 mg PO DAILY [facility] Last Admin: 12/13/16 08:39 Dose: 100 mg - Labs Labs: 12/13/16 06:39 - Constitutional Appears: No Acute Distress - Head Exam Head Exam: NORMAL INSPECTION - Eye Exam Eye Exam: PERRL - ENT Exam ENT Exam: Normal Oropharynx - Neck Exam Neck Exam: Normal Inspection - Respiratory Exam Respiratory Exam: NORMAL BREATHING PATTERN - Cardiovascular Exam Cardiovascular Exam: REGULAR RHYTHM Additional comments: PPM - GI/Abdominal Exam GI & Abdominal Exam: Soft, Normal Bowel Sounds. absent: Tenderness - Extremities Exam Extremities Exam: Normal Inspection - Back Exam Back Exam: NORMAL INSPECTION - Neurological Exam Neurological Exam: Alert, Oriented x3. absent: Motor Sensory Deficit - Psychiatric Exam Psychiatric exam: Anxious - Skin Skin Exam: Warm Assessment and Plan (1) IDDM (insulin dependent diabetes mellitus) Status: Chronic (2) Hyperglycemia Status: Chronic (3) COPD (chronic obstructive pulmonary disease) Status: Chronic (4) HTN (hypertension) Status: Chronic (5) Dyslipidemia Status: Chronic (6) Post-menopausal bleeding Status: Acute - Assessment and Plan (Free Text) Plan: BS 232, continue Humalox Mix 75/25, Levemir, Januvia, Lipitor, K-Dur, Tylenol and rest of Tx.
[2016-12-13] MEDS: Insulin Detemir 100 Units/ml Inj SC SCH (21:00)
[2016-12-14] MEDS: Alum-Mag Hydrox-Simethicone Susp (30 mL) PO PRN (00:05)
[2016-12-14] MEDS: Insulin Lispro (humaLOG) 100 Units/ml Inj SC SCH ×4 (06:57→21:21)
[2016-12-14] MEDS: Insulin Lispro Mix 75/25 100 units/ml (HumaLog) 10ml SC SCH ×2 (08:09→16:19)
[2016-12-14] MEDS: Potassium Chloride 20 mEq ER Tab PO SCH (08:10)
[2016-12-14] MEDS: Divalproex 500 mg DR(BID formulation) PO SCH ×2 (08:13→16:18)
[2016-12-14] MEDS: Pantoprazole 40 mg EC Tab PO SCH (08:16)
--- NOTE | 2016-12-14 08:48 | PCM.PYCHPN ---
Psychiatric Progress Note - Psychiatric Progress Note Patient seen today, length of contact: Patient evaluated, case discussed with team, chart reviewed, 35 min Patient Chief Complaint: "I'm going blind" Problems Identified/Issues Discussed: No significant events overnight. She continues to be paranoid and delusional, with continued fears that her life is in danger and that her neighbor wants to kill her. She also believes that she is going blind (despite being able to see and walk around and perform her normal ADLs) and has various somatic complaints. Diagnostic Results: VPA 12/13/16- 39.3 Medication Change: No Medical Record Reviewed: Yes Mental Status Examination - Cognitive Function Orientation: Person, Place, Situation, Time Memory: Intact Attention: WNL Concentration: WNL Association: Loose Fund of Knowledge: WNL Decription of patient's judgement and insights: Poor insight/ fair judgment - Mood Mood: Depressed, Anxious - Affect Affect: Constricted - Formal Thought Process Formal Thought Process: Hallucinations, Delusions Psychotic Thoughts and Behaviors: +Various paranoid delusions - Suicidal Ideation Suicidal Ideation: No - Homicidal Ideation Homicidal Ideation: No Goal/Treatment Plan - Goal/Treatment Plan Need for Continued Stay: Remain at risks for inpatient hospitalization, Severe depression anxiety, Discharge may exacerbated symptoms Progress Toward Problem(s) and Goals/Treatment Plan: 56 yo female w/ h/o MDD w/ psychotic features vs. schizoaffective disorder, presents w/ AH, delusions, depressed mood and anxiety, needs inpatient admission for treatment and stabilization. -Medicine consult appreciated -Continue Prozac 40 mg PO Daily -Continue Risperdal 1 mg PO Daily/ 2 mg PO HS -Individual and group therapy -OB consult appreciated Estimated Date of D/C: 12/18/16 - Smoking Cessation Smoking Cessation Initiated: No Reason for not providing: Not indicated
[2016-12-14] MEDS: Insulin Detemir 100 Units/ml Inj SC SCH (21:21)
--- NOTE | 2016-12-14 22:44 | CP.PCM.PN ---
Subjective - Date & Time of Evaluation Date of Evaluation: 12/14/16 Time of Evaluation: 20:30 - Subjective Subjective: Patient ambulating around her room, in no acute distress. Reports she is no longer having vaginal bleeding. Denies pelvic pain, dizziness, weakness, headache. Tolerating PO diet, no difficulty urinating, normal stool output. Discussed with patient results of endometrial biopsy, patient understood importance of follow up with Obgyn as out patient in 2-3 weeks. Patient has no other concerns or complaints at this time. Objective - Vital Signs/Intake and Output Vital Signs (last 24 hours): Temp Pulse Resp BP Pulse Ox 97.7 F 101 H 19 125/68 12/14/16 15:31 12/14/16 15:31 12/14/16 15:31 12/14/16 15:31 - Medications Medications: Current Medications Acetaminophen (Tylenol 325mg Tab) 650 mg PO Q4 PRN PRN Reason: pain 4-7 Last Admin: 12/14/16 14:55 Dose: 650 mg Al Hydrox/Mg Hydrox/Simethicone (Maalox Plus 30 Ml) 30 ml PO Q4 PRN PRN Reason: Dyspepsia Last Admin: 12/14/16 00:05 Dose: 30 ml Albuterol/Ipratropium (Duoneb 3 Mg/0.5 Mg (3 Ml) Ud) 3 ml INH RQ6 PRN PRN Reason: Shortness of Breath Atorvastatin Calcium (Lipitor) 10 mg PO HS [facility] Last Admin: 12/14/16 21:23 Dose: 10 mg Calcium Carbonate (Oscal) 500 mg PO BID [facility] Last Admin: 12/14/16 16:17 Dose: 500 mg Diphenhydramine HCl (Benadryl) 50 mg PO Q6 PRN PRN Reason: Extrapyramidal Symptoms Last Admin: 12/11/16 21:45 Dose: 50 mg Diphenhydramine HCl (Benadryl) 50 mg PO HS PRN PRN Reason: Sleep Last Admin: 12/13/16 22:31 Dose: 50 mg Diphenhydramine HCl (Benadryl) 50 mg IM Q6 PRN PRN Reason: Extrapyramidal S/S Unable PO Divalproex Sodium (Depakote Dr(*Bid*)) 500 mg PO BID [facility] Last Admin: 04/27/17 16:18 Dose: 500 mg Fluconazole (Diflucan) 100 mg PO DAILY [facility] Last Admin: 12/14/16 08:13 Dose: 100 mg Fluoxetine HCl (Prozac) 40 mg PO DAILY [facility] Last Admin: 12/14/16 08:14 Dose: 40 mg Haloperidol (Haldol) 5 mg PO Q4 PRN PRN Reason: Agitation Haloperidol Lactate (Haldol) 5 mg IM Q4 PRN PRN Reason: Agitation, Unable to Take PO Insulin Detemir (Levemir) 40 units SC HS [facility] Last Admin: 12/14/16 21:21 Dose: 40 unit Insulin Human Lispro (Humalog) [address] [facility] PRN Reason: Protocol Last Admin: 12/14/16 21:21 Dose: Not Given Insulin Lispro Protam/Lispro Human (Humalog Mix 75/25) 6 units SC ACBD [facility] Last Admin: 12/14/16 16:19 Dose: 6 units Isosorbide Mononitrate (Imdur) 30 mg PO DAILY [facility] Last Admin: 12/14/16 08:17 Dose: 30 mg Lisinopril (Zestril) 5 mg PO DAILY [facility] Last Admin: 12/14/16 08:16 Dose: 5 mg Loperamide HCl (Imodium) 2 mg PO QID PRN PRN Reason: Diarrhea Lorazepam (Ativan) 2 mg PO Q4 PRN PRN Reason: Anxiety/Agitation Last Admin: 12/12/16 02:57 Dose: 2 mg Lorazepam (Ativan) 2 mg IM Q4 PRN PRN Reason: Anxiety/Agitation,Unable PO Magnesium Hydroxide (Milk Of Magnesia) 30 ml PO HS PRN PRN Reason: Constipation Metoprolol Tartrate (Lopressor) 25 mg PO DAILY [facility] Last Admin: 12/14/16 08:16 Dose: 25 mg Montelukast Sodium (Singulair) 10 mg PO HS [facility] Last Admin: 12/14/16 21:24 Dose: 10 mg Ondansetron HCl (Zofran Inj) 4 mg IM Q4 PRN PRN Reason: Nausea/Vomiting Pantoprazole Sodium (Protonix Ec Tab) 40 mg PO DAILY [facility] Last Admin: 12/14/16 08:16 Dose: 40 mg Potassium Chloride (K-Dur 20 Meq Er Tab) 40 meq PO DAILY [facility] Last Admin: 12/14/16 08:10 Dose: 40 meq Risperidone (Risperdal Tab) 1 mg PO DAILY [facility] Last Admin: 12/14/16 08:15 Dose: 1 mg Risperidone (Risperdal Tab) 2 mg PO HS [facility] Last Admin: 12/14/16 21:24 Dose: 2 mg Sitagliptin Phosphate (Januvia) 100 mg PO DAILY [facility] Last Admin: 12/14/16 08:11 Dose: 100 mg - Labs Labs: 12/13/16 06:39 Assessment and Plan - Assessment and Plan (Free Text) Assessment: A/P 1. Postmenopausal bleeding s/p Endometrial Biopsy -results of endometrial biopsy discussed with patient: predominantly showing shedding endometrium with rare fragments of proliferative phase endometrium -follow up in 2-[address] Ware as outpatient : [address] [place], [place] [id number] -no further inpatient intervention necessary at this time -case discussed with Dr. Woo
[2016-12-15] MEDS: Insulin Lispro Mix 75/25 100 units/ml (HumaLog) 10ml SC SCH ×2 (08:01→17:07)
[2016-12-15] MEDS: Insulin Lispro (humaLOG) 100 Units/ml Inj SC SCH ×5 (08:02→21:12)
[2016-12-15 08:13] LABS: BASO # 0.1 K/uL (0.0-0.2); BASO % 0.7 % (0.0-2.0); EOS % 0.4 % (0.0-4.0); HEMATOCRIT 36.6 % (34.0-47.0); LYMPH # 2.2 K/uL (1.0-4.3); LYMPH % 21.6 % (20.0-40.0); MEAN CELL VOLUME 74.6 fl (81.0-99.0); MEAN CORPUSCULAR HGB CONC 32.2 g/dL (33.0-37.0); MEAN PLATELET VOLUME 9.3 fl (7.2-11.7); MONO # 0.7 K/uL (0.0-0.8); MONO % 7.1 % (0.0-10.0); NEUT # 7.2 K/uL (1.8-7.0); NEUT % 70.2 % (50.0-75.0); RED CELL DISTRIBUTION WIDTH 17.5 % (11.5-14.5); WHITE BLOOD COUNT 10.2 K/uL (4.8-10.8)
[2016-12-15 08:20] LABS: BLOOD UREA NITROGEN 12 mg/dl (7-17); CALCIUM 9.5 mg/dL (8.4-10.2); CARBON DIOXIDE 22 mmol/L (22-30); CHLORIDE 100 mmol/L (98-107); GFR AFRICAN-AMERICAN > 60; GLUCOSE,RANDOM 289 mg/dL (65-105); POTASSIUM 4.3 MMOL/L (3.6-5.0); SODIUM 136 mmol/l (132-148)
[2016-12-15] MEDS: Potassium Chloride 20 mEq ER Tab PO SCH (09:19)
[2016-12-15] MEDS: Divalproex 500 mg DR(BID formulation) PO SCH ×2 (09:19→17:47)
[2016-12-15] MEDS: Pantoprazole 40 mg EC Tab PO SCH (09:21)
--- NOTE | 2016-12-15 09:44 | PCM.PYCHPN ---
Psychiatric Progress Note - Psychiatric Progress Note Patient seen today, length of contact: Patient evaluated, case discussed with team, chart reviewed, 35 min Patient Chief Complaint: "I'm okay" Problems Identified/Issues Discussed: No significant events overnight. She continues to be paranoid and delusional, with continued belief that an MD committed suicide in front of her and fears that her life is in danger and that her neighbor wants to kill her. She continues to have various somatic complaints and is convinced that diabetic people need to eat more than non-diabetic people, despite counseling from the rewriter. No adverse effects to medications noted. Diagnostic Results: VPA 12/13/16- 39.3 Medication Change: No Medical Record Reviewed: Yes Mental Status Examination - Cognitive Function Orientation: Person, Place, Situation, Time Memory: Intact Attention: WNL Concentration: WNL Association: Loose Fund of Knowledge: WNL Decription of patient's judgement and insights: Poor insight/ fair judgment - Mood Mood: Anxious - Affect Affect: Broad - Speech Speech: Appropriate - Formal Thought Process Formal Thought Process: Hallucinations, Delusions Psychotic Thoughts and Behaviors: +Various paranoid delusions - Suicidal Ideation Suicidal Ideation: No - Homicidal Ideation Homicidal Ideation: No Goal/Treatment Plan - Goal/Treatment Plan Need for Continued Stay: Remain at risks for inpatient hospitalization, Severe depression anxiety, Discharge may exacerbated symptoms Progress Toward Problem(s) and Goals/Treatment Plan: 56 yo female w/ h/o MDD w/ psychotic features vs. schizoaffective disorder, presents w/ AH, delusions, depressed mood and anxiety, needs inpatient admission for treatment and stabilization. -Medicine consult appreciated -Continue Prozac 40 mg PO Daily -Continue Risperdal 1 mg PO Daily/ 2 mg PO HS; will consider titrating if clinically indicated -Individual and group therapy -OB consult appreciated Estimated Date of D/C: 12/20/16
--- NOTE | 2016-12-15 14:56 | CP.PCM.PN ---
Subjective - Date & Time of Evaluation Date of Evaluation: 12/15/16 Time of Evaluation: 09:00 - Subjective Subjective: F/U IDDM/ HTN. Pt appear calm, BS increased to 289, VS normal, no c/o of back pain, no bleeding. Objective - Vital Signs/Intake and Output Vital Signs (last 24 hours): Temp Pulse Resp BP Pulse Ox 98.1 F 93 H 18 127/76 12/15/16 06:00 12/15/16 09:20 12/15/16 06:00 12/15/16 09:20 - Medications Medications: Current Medications Acetaminophen (Tylenol 325mg Tab) 650 mg PO Q4 PRN PRN Reason: pain 4-7 Last Admin: 12/15/16 13:47 Dose: 650 mg Al Hydrox/Mg Hydrox/Simethicone (Maalox Plus 30 Ml) 30 ml PO Q4 PRN PRN Reason: Dyspepsia Last Admin: 12/14/16 00:05 Dose: 30 ml Albuterol/Ipratropium (Duoneb 3 Mg/0.5 Mg (3 Ml) Ud) 3 ml INH RQ6 PRN PRN Reason: Shortness of Breath Atorvastatin Calcium (Lipitor) 10 mg PO HS [facility] Last Admin: 12/14/16 21:23 Dose: 10 mg Calcium Carbonate (Oscal) 500 mg PO BID [facility] Last Admin: 12/15/16 09:19 Dose: 500 mg Diphenhydramine HCl (Benadryl) 50 mg PO Q6 PRN PRN Reason: Extrapyramidal Symptoms Last Admin: 12/11/16 21:45 Dose: 50 mg Diphenhydramine HCl (Benadryl) 50 mg PO HS PRN PRN Reason: Sleep Last Admin: 12/13/16 22:31 Dose: 50 mg Diphenhydramine HCl (Benadryl) 50 mg IM Q6 PRN PRN Reason: Extrapyramidal S/S Unable PO Divalproex Sodium (Depakote Dr(*Bid*)) 500 mg PO BID [facility] Last Admin: 12/15/16 09:19 Dose: 500 mg Fluconazole (Diflucan) 100 mg PO DAILY [facility] Last Admin: 12/15/16 09:18 Dose: 100 mg Fluoxetine HCl (Prozac) 40 mg PO DAILY [facility] Last Admin: 04/28/17 09:18 Dose: 40 mg Haloperidol (Haldol) 5 mg PO Q4 PRN PRN Reason: Agitation Haloperidol Lactate (Haldol) 5 mg IM Q4 PRN PRN Reason: Agitation, Unable to Take PO Insulin Detemir (Levemir) 40 units SC HS [facility] Last Admin: 12/14/16 21:21 Dose: 40 unit Insulin Human Lispro (Humalog) 0 units SC ACHS [facility] PRN Reason: Protocol Last Admin: 12/15/16 12:25 Dose: 4 u Insulin Lispro Protam/Lispro Human (Humalog Mix 75/25) 6 units SC ACBD [facility] Last Admin: 12/15/16 08:01 Dose: 6 units Isosorbide Mononitrate (Imdur) 30 mg PO DAILY [facility] Last Admin: 12/15/16 09:18 Dose: 30 mg Lisinopril (Zestril) 5 mg PO DAILY [facility] Last Admin: 12/15/16 09:18 Dose: 5 mg Loperamide HCl (Imodium) 2 mg PO QID PRN PRN Reason: Diarrhea Lorazepam (Ativan) 2 mg PO Q4 PRN PRN Reason: Anxiety/Agitation Last Admin: 12/12/16 02:57 Dose: 2 mg Lorazepam (Ativan) 2 mg IM Q4 PRN PRN Reason: Anxiety/Agitation,Unable PO Magnesium Hydroxide (Milk Of Magnesia) 30 ml PO HS PRN PRN Reason: Constipation Metoprolol Tartrate (Lopressor) 25 mg PO DAILY [facility] Last Admin: 12/15/16 09:20 Dose: 25 mg Montelukast Sodium (Singulair) 10 mg PO HS [facility] Last Admin: 12/14/16 21:24 Dose: 10 mg Ondansetron HCl (Zofran Inj) 4 mg IM Q4 PRN PRN Reason: Nausea/Vomiting Pantoprazole Sodium (Protonix Ec Tab) 40 mg PO DAILY [facility] Last Admin: 12/15/16 09:21 Dose: 40 mg Potassium Chloride (K-Dur 20 Meq Er Tab) 40 meq PO DAILY [facility] Last Admin: 12/15/16 09:19 Dose: 40 meq Risperidone (Risperdal Tab) 1 mg PO DAILY [facility] Last Admin: 12/15/16 09:19 Dose: 1 mg Risperidone (Risperdal Tab) 2 mg PO HS [facility] Last Admin: 12/14/16 21:24 Dose: 2 mg Sitagliptin Phosphate (Januvia) 100 mg PO DAILY [facility] Last Admin: 12/15/16 09:19 Dose: 100 mg - Labs Labs: 12/15/16 07:43 12/15/16 07:43 - Constitutional Appears: No Acute Distress - Head Exam Head Exam: NORMAL INSPECTION - Eye Exam Eye Exam: PERRL - ENT Exam ENT Exam: Normal Oropharynx - Neck Exam Neck Exam: Normal Inspection - Respiratory Exam Respiratory Exam: NORMAL BREATHING PATTERN - Cardiovascular Exam Cardiovascular Exam: REGULAR RHYTHM Additional comments: PPM - GI/Abdominal Exam GI & Abdominal Exam: Soft, Tenderness (to palpation epigastric area), Normal Bowel Sounds. absent: Guarding, Rebound - Extremities Exam Extremities Exam: Normal Inspection - Back Exam Back Exam: NORMAL INSPECTION - Neurological Exam Neurological Exam: Alert, Oriented x3. absent: Motor Sensory Deficit - Psychiatric Exam Psychiatric exam: Anxious - Skin Skin Exam: Warm Assessment and Plan (1) IDDM (insulin dependent diabetes mellitus) Status: Chronic (2) Hyperglycemia Status: Chronic (3) COPD (chronic obstructive pulmonary disease) Status: Chronic (4) HTN (hypertension) Status: Chronic (5) Dyslipidemia Status: Chronic (6) Post-menopausal bleeding Status: Acute - Assessment and Plan (Free Text) Plan: Continue Humalog, Levemir, Januvia, Duoneb, Lopressor and rest of Tx.
[2016-12-15] MEDS: Insulin Detemir 100 Units/ml Inj SC SCH (21:11)
[2016-12-16] MEDS: Alum-Mag Hydrox-Simethicone Susp (30 mL) PO PRN ×2 (04:53→23:35)
[2016-12-16] MEDS: Insulin Lispro (humaLOG) 100 Units/ml Inj SC SCH ×4 (08:03→21:21)
[2016-12-16] MEDS: Insulin Lispro Mix 75/25 100 units/ml (HumaLog) 10ml SC SCH ×2 (08:03→16:34)
[2016-12-16] MEDS: Divalproex 500 mg DR(BID formulation) PO SCH ×2 (08:07→16:34)
[2016-12-16] MEDS: Potassium Chloride 20 mEq ER Tab PO SCH (08:08)
[2016-12-16] MEDS: Pantoprazole 40 mg EC Tab PO SCH (08:09)
--- NOTE | 2016-12-16 11:45 | PCM.PYCHPN ---
Psychiatric Progress Note - Psychiatric Progress Note Patient seen today, length of contact: discussed with team Patient Chief Complaint: i feel better Problems Identified/Issues Discussed: pt states she is feeling better. she is denying medicaitno side effects. calm. she denies hearing voices currently. more reality focused. Medication Change: No Medical Record Reviewed: Yes Mental Status Examination - Cognitive Function Orientation: Person, Place, Situation, Time Memory: Intact Attention: WNL Concentration: WNL Association: Loose Fund of Knowledge: WNL Decription of patient's judgement and insights: fair - Mood Mood: Anxious - Affect Affect: Broad - Speech Speech: Appropriate - Formal Thought Process Formal Thought Process: Hallucinations, Delusions Psychotic Thoughts and Behaviors: remains internally preoccupied - Suicidal Ideation Suicidal Ideation: No - Homicidal Ideation Homicidal Ideation: No Goal/Treatment Plan - Goal/Treatment Plan Need for Continued Stay: Remain at risks for inpatient hospitalization, Severe depression anxiety, Discharge may exacerbated symptoms Progress Toward Problem(s) and Goals/Treatment Plan: schizoaffective disorder continue current treatment disposition planning Estimated Date of D/C: 12/20/16
[2016-12-16] MEDS: Albuterol-Ipratrop 3 mg / 0.5 (3 ml) UD INH PRN (12:59)
[2016-12-16] MEDS: Insulin Detemir 100 Units/ml Inj SC SCH (21:22)
[2016-12-17] MEDS: Divalproex 500 mg DR(BID formulation) PO SCH ×2 (09:01→16:27)
[2016-12-17] MEDS: Insulin Lispro (humaLOG) 100 Units/ml Inj SC SCH ×4 (09:01→21:03)
[2016-12-17] MEDS: Insulin Lispro Mix 75/25 100 units/ml (HumaLog) 10ml SC SCH ×2 (09:02→16:30)
[2016-12-17] MEDS: Potassium Chloride 20 mEq ER Tab PO SCH (09:04)
[2016-12-17] MEDS: Pantoprazole 40 mg EC Tab PO SCH (09:06)
[2016-12-17] MEDS: Alum-Mag Hydrox-Simethicone Susp (30 mL) PO PRN ×2 (10:37→21:53)
[2016-12-17] MEDS: Albuterol-Ipratrop 3 mg / 0.5 (3 ml) UD INH PRN (13:40)
--- NOTE | 2016-12-17 14:33 | PCM.PYCHPN ---
Psychiatric Progress Note - Psychiatric Progress Note Patient seen today, length of contact: discussed with team Patient Chief Complaint: i feel better each day Problems Identified/Issues Discussed: pt is denying medication side effects. calm. she denies hearing voices currently. she visible in milieu and interacting with staff. worries she is a little anxious at times. Medication Change: No Medical Record Reviewed: Yes Mental Status Examination - Cognitive Function Orientation: Person, Place, Situation, Time Memory: Intact Attention: WNL Concentration: WNL Association: Loose Fund of Knowledge: WNL Decription of patient's judgement and insights: fair - Mood Mood: Anxious - Affect Affect: Broad - Speech Speech: Appropriate - Formal Thought Process Formal Thought Process: Hallucinations, Delusions Psychotic Thoughts and Behaviors: remains internally preoccupied - Suicidal Ideation Suicidal Ideation: No - Homicidal Ideation Homicidal Ideation: No Goal/Treatment Plan - Goal/Treatment Plan Need for Continued Stay: Remain at risks for inpatient hospitalization, Severe depression anxiety, Discharge may exacerbated symptoms Progress Toward Problem(s) and Goals/Treatment Plan: schizoaffective disorder continue current treatment disposition planning Estimated Date of D/C: 12/20/16
[2016-12-17] MEDS: Insulin Detemir 100 Units/ml Inj SC SCH (21:05)
--- NOTE | 2016-12-18 08:32 | PCM.PYCHPN ---
Psychiatric Progress Note - Psychiatric Progress Note Patient seen today, length of contact: Patient evaluated, chart reviewed, case discussed with team Patient Chief Complaint: "The voices came back" Problems Identified/Issues Discussed: Patient reports experiencing auditory hallucinations last night that another patient is trying to harm her. She continues to be paranoid and delusional, with continued belief that an MD committed suicide in front of her and fears that her life is in danger and that her neighbor wants to kill her. She continues to have various somatic complaints. We discussed increasing her Risperdal. r/b/se reviewed, patient in agreement with continued titration. No adverse effects to medications noted. Diagnostic Results: VPA 12/13/16- 39.3 Medication Change: Yes (Increase Risperdal to 2 mg PO Q12 hr) Medical Record Reviewed: Yes Mental Status Examination - Cognitive Function Orientation: Person, Place, Situation, Time Memory: Intact Attention: WNL Concentration: WNL Association: Loose Fund of Knowledge: WNL Decription of patient's judgement and insights: Poor insight, fair judgment - Mood Mood: Anxious - Affect Affect: Broad - Speech Speech: Appropriate - Formal Thought Process Formal Thought Process: Hallucinations, Delusions Psychotic Thoughts and Behaviors: +Continued paranoid delusions - Suicidal Ideation Suicidal Ideation: No - Homicidal Ideation Homicidal Ideation: No Goal/Treatment Plan - Goal/Treatment Plan Need for Continued Stay: Remain at risks for inpatient hospitalization, Severe depression anxiety, Discharge may exacerbated symptoms Progress Toward Problem(s) and Goals/Treatment Plan: 56 yo female w/ h/o MDD w/ psychotic features vs. schizoaffective disorder, presents w/ AH, delusions, depressed mood and anxiety, needs inpatient admission for treatment and stabilization. -Medicine consult appreciated -Continue Prozac 40 mg PO Daily -Increase Risperdal to 2 mg PO Q12 hr -Individual and group therapy -OB consult appreciated Estimated Date of D/C: 12/22/16
[2016-12-18] MEDS: Divalproex 500 mg DR(BID formulation) PO SCH ×2 (09:00→17:06)
[2016-12-18] MEDS: Potassium Chloride 20 mEq ER Tab PO SCH (09:05)
[2016-12-18] MEDS: Insulin Lispro Mix 75/25 100 units/ml (HumaLog) 10ml SC SCH ×2 (09:06→17:04)
[2016-12-18] MEDS: Pantoprazole 40 mg EC Tab PO SCH (09:10)
[2016-12-18] MEDS: Insulin Lispro (humaLOG) 100 Units/ml Inj SC SCH ×3 (12:14→21:37)
[2016-12-18] MEDS: Albuterol-Ipratrop 3 mg / 0.5 (3 ml) UD INH PRN (19:26)
[2016-12-18] MEDS: Alum-Mag Hydrox-Simethicone Susp (30 mL) PO PRN (21:39)
[2016-12-18] MEDS: Insulin Detemir 100 Units/ml Inj SC SCH (21:40)
[2016-12-19] MEDS: Insulin Lispro Mix 75/25 100 units/ml (HumaLog) 10ml SC SCH ×2 (08:17→16:34)
[2016-12-19] MEDS: Insulin Lispro (humaLOG) 100 Units/ml Inj SC SCH ×4 (08:18→21:21)
[2016-12-19] MEDS: Pantoprazole 40 mg EC Tab PO SCH (08:20)
[2016-12-19] MEDS: Potassium Chloride 20 mEq ER Tab PO SCH (08:21)
[2016-12-19] MEDS: Divalproex 500 mg DR(BID formulation) PO SCH ×2 (08:23→16:40)
--- NOTE | 2016-12-19 11:21 | PCM.PYCHPN ---
Psychiatric Progress Note - Psychiatric Progress Note Patient seen today, length of contact: Patient evaluated, chart reviewed, case discussed with team Patient Chief Complaint: "I'm okay" Problems Identified/Issues Discussed: Patient reports continued delusions. She was excessively tired from Risperdal this morning. We discussed moving more of the dosage to the evening. No current AH/CAH. No adverse effects to medications noted. Diagnostic Results: VPA 12/13/16- 39.3 Medication Change: No Medical Record Reviewed: Yes Mental Status Examination - Cognitive Function Orientation: Person, Place, Situation, Time Memory: Intact Attention: WNL Concentration: WNL Association: Loose Fund of Knowledge: WNL Decription of patient's judgement and insights: Poor insight, fair judgment - Mood Mood: Anxious - Affect Affect: Broad - Speech Speech: Appropriate - Formal Thought Process Formal Thought Process: Hallucinations, Delusions Psychotic Thoughts and Behaviors: +Continued paranoid delusions - Suicidal Ideation Suicidal Ideation: No - Homicidal Ideation Homicidal Ideation: No Goal/Treatment Plan - Goal/Treatment Plan Need for Continued Stay: Remain at risks for inpatient hospitalization, Severe depression anxiety, Discharge may exacerbated symptoms Progress Toward Problem(s) and Goals/Treatment Plan: 56 yo female w/ h/o MDD w/ psychotic features vs. schizoaffective disorder, presents w/ AH, delusions, depressed mood and anxiety, needs inpatient admission for treatment and stabilization. -Medicine consult appreciated -Continue Prozac 40 mg PO Daily -Tomorrow will change Risperdal to 1 mg PO AM/ 3 mg PO HS, due to the patient being overly tired this morning -Individual and group therapy -OB consult appreciated Estimated Date of D/C: 12/22/16
--- NOTE | 2016-12-19 14:16 | CP.PCM.PN ---
Subjective - Date & Time of Evaluation Date of Evaluation: 12/19/16 Time of Evaluation: 13:30 - Subjective Subjective: F/U IDDM/ HTN. Pt with no specific complaint, no A/D, BS 207. Objective - Vital Signs/Intake and Output Vital Signs (last 24 hours): Temp Pulse Resp BP Pulse Ox 97 F L 95 H 20 152/76 H 12/19/16 06:00 12/19/16 08:22 12/19/16 06:00 12/19/16 08:22 - Medications Medications: Current Medications Acetaminophen (Tylenol 325mg Tab) 650 mg PO Q4 PRN PRN Reason: pain 4-7 Last Admin: 12/18/16 21:38 Dose: 650 mg Al Hydrox/Mg Hydrox/Simethicone (Maalox Plus 30 Ml) 30 ml PO Q4 PRN PRN Reason: Dyspepsia Last Admin: 12/18/16 21:39 Dose: 30 ml Albuterol/Ipratropium (Duoneb 3 Mg/0.5 Mg (3 Ml) Ud) 3 ml INH RQ6 PRN PRN Reason: Shortness of Breath Last Admin: 12/18/16 19:26 Dose: 3 ml Atorvastatin Calcium (Lipitor) 10 mg PO HS [facility] Last Admin: 12/18/16 21:36 Dose: 10 mg Calcium Carbonate (Oscal) 500 mg PO BID [facility] Last Admin: 12/19/16 08:23 Dose: 500 mg Diphenhydramine HCl (Benadryl) 50 mg PO Q6 PRN PRN Reason: Extrapyramidal Symptoms Last Admin: 12/11/16 21:45 Dose: 50 mg Diphenhydramine HCl (Benadryl) 50 mg PO HS PRN PRN Reason: Sleep Last Admin: 12/13/16 22:31 Dose: 50 mg Diphenhydramine HCl (Benadryl) 50 mg IM Q6 PRN PRN Reason: Extrapyramidal S/S Unable PO Divalproex Sodium (Depakote Dr(*Bid*)) 500 mg PO BID [facility] Last Admin: 12/19/16 08:23 Dose: 500 mg Fluoxetine HCl (Prozac) 40 mg PO DAILY [facility] Last Admin: 12/19/16 08:21 Dose: 40 mg Haloperidol (Haldol) 5 mg PO Q4 PRN PRN Reason: Agitation Haloperidol Lactate (Haldol) 5 mg IM Q4 PRN PRN Reason: Agitation, Unable to Take PO Insulin Detemir (Levemir) 40 units SC HS [facility] Last Admin: 12/18/16 21:40 Dose: 40 unit Insulin Human Lispro (Humalog) 0 units SC ACHS [facility] PRN Reason: Protocol Last Admin: 12/19/16 12:28 Dose: 4 u Insulin Lispro Protam/Lispro Human (Humalog Mix 75/25) 6 units SC ACBD [facility] Last Admin: 12/19/16 08:17 Dose: 6 units Isosorbide Mononitrate (Imdur) 30 mg PO DAILY [facility] Last Admin: 12/19/16 08:23 Dose: 30 mg Lisinopril (Zestril) 5 mg PO DAILY [facility] Last Admin: 12/19/16 08:20 Dose: 5 mg Loperamide HCl (Imodium) 2 mg PO QID PRN PRN Reason: Diarrhea Lorazepam (Ativan) 2 mg PO Q4 PRN PRN Reason: Anxiety/Agitation Last Admin: 12/18/16 22:47 Dose: 2 mg Lorazepam (Ativan) 2 mg IM Q4 PRN PRN Reason: Anxiety/Agitation,Unable PO Magnesium Hydroxide (Milk Of Magnesia) 30 ml PO HS PRN PRN Reason: Constipation Metoprolol Tartrate (Lopressor) 25 mg PO DAILY [facility] Last Admin: 12/19/16 08:22 Dose: 25 mg Montelukast Sodium (Singulair) 10 mg PO [facility] Last Admin: 12/18/16 21:36 Dose: 10 mg Ondansetron HCl (Zofran Inj) 4 mg IM Q4 PRN PRN Reason: Nausea/Vomiting Pantoprazole Sodium (Protonix Ec Tab) 40 mg PO DAILY [facility] Last Admin: 12/19/16 08:20 Dose: 40 mg Potassium Chloride (K-Dur 20 Meq Er Tab) 40 meq PO DAILY [facility] Last Admin: 12/19/16 08:21 Dose: 40 meq Risperidone (Risperdal Tab) 2 mg PO Q12 [facility] Last Admin: 12/19/16 08:22 Dose: 2 mg Sitagliptin Phosphate (Januvia) 100 mg PO DAILY [facility] Last Admin: 12/19/16 08:22 Dose: 100 mg - Labs Labs: 12/15/16 07:43 12/15/16 07:43 - Constitutional Appears: No Acute Distress - Head Exam Head Exam: NORMAL INSPECTION - Eye Exam Eye Exam: PERRL - ENT Exam ENT Exam: Normal Oropharynx - Neck Exam Neck Exam: Normal Inspection - Respiratory Exam Respiratory Exam: NORMAL BREATHING PATTERN - Cardiovascular Exam Cardiovascular Exam: REGULAR RHYTHM Additional comments: PPM - GI/Abdominal Exam GI & Abdominal Exam: Soft, Normal Bowel Sounds - Extremities Exam Extremities Exam: Normal Inspection - Back Exam Back Exam: NORMAL INSPECTION - Neurological Exam Neurological Exam: Alert, Oriented x3. absent: Motor Sensory Deficit - Psychiatric Exam Psychiatric exam: Anxious Assessment and Plan (1) IDDM (insulin dependent diabetes mellitus) Status: Chronic (2) Hyperglycemia Status: Chronic (3) COPD (chronic obstructive pulmonary disease) Status: Chronic (4) HTN (hypertension) Status: Chronic (5) Dyslipidemia Status: Chronic (6) Post-menopausal bleeding Status: Acute - Assessment and Plan (Free Text) Plan: Continue Insulin, Lipitor, Indur, Lopressor, Zestril and rest of Tx.
[2016-12-19] MEDS: Albuterol-Ipratrop 3 mg / 0.5 (3 ml) UD INH PRN (18:44)
[2016-12-19] MEDS: Alum-Mag Hydrox-Simethicone Susp (30 mL) PO PRN (19:45)
[2016-12-19] MEDS: Insulin Detemir 100 Units/ml Inj SC SCH (21:22)
[2016-12-20] MEDS: Insulin Lispro (humaLOG) 100 Units/ml Inj SC SCH ×4 (08:03→21:14)
[2016-12-20] MEDS: Insulin Lispro Mix 75/25 100 units/ml (HumaLog) 10ml SC SCH ×2 (08:05→16:20)
[2016-12-20] MEDS: Pantoprazole 40 mg EC Tab PO SCH (08:17)
[2016-12-20] MEDS: Divalproex 500 mg DR(BID formulation) PO SCH ×2 (08:17→16:18)
[2016-12-20] MEDS: Potassium Chloride 20 mEq ER Tab PO SCH (08:21)
--- NOTE | 2016-12-20 10:04 | PCM.PYCHPN ---
Psychiatric Progress Note - Psychiatric Progress Note Patient seen today, length of contact: Patient evaluated, chart reviewed, case discussed with team, 35 min Patient Chief Complaint: "I'm okay" Problems Identified/Issues Discussed: Patient reports continued delusions. She reports that does not feel ready to leave the hospital because she is worried about her safety when she leaves. + Paranoid delusions. No current AH/CAH. No adverse effects to medications noted. Diagnostic Results: VPA 12/13/16- 39.3 Medication Change: No Medical Record Reviewed: Yes Mental Status Examination - Cognitive Function Orientation: Person, Place, Situation, Time Memory: Intact Attention: WNL Concentration: WNL Association: Loose Fund of Knowledge: WNL Decription of patient's judgement and insights: Poor insight, fair judgment - Mood Mood: Anxious - Affect Affect: Broad - Speech Speech: Appropriate - Formal Thought Process Formal Thought Process: Delusions Psychotic Thoughts and Behaviors: +Continued paranoid delusions - Suicidal Ideation Suicidal Ideation: No - Homicidal Ideation Homicidal Ideation: No Goal/Treatment Plan - Goal/Treatment Plan Need for Continued Stay: Remain at risks for inpatient hospitalization, Severe depression anxiety, Discharge may exacerbated symptoms Progress Toward Problem(s) and Goals/Treatment Plan: 56 yo female w/ h/o MDD w/ psychotic features vs. schizoaffective disorder, presents w/ AH, delusions, depressed mood and anxiety, needs inpatient admission for treatment and stabilization. -Medicine consult appreciated -Continue Prozac 40 mg PO Daily -Continue Risperdal 1 mg PO AM/ 3 mg PO HS -Individual and group therapy -OB consult appreciated Estimated Date of D/C: 12/22/16 - Smoking Cessation Smoking Cessation Initiated: No Reason for not providing: Not indicated
[2016-12-20] MEDS: Alum-Mag Hydrox-Simethicone Susp (30 mL) PO PRN (21:14)
[2016-12-20] MEDS: Insulin Detemir 100 Units/ml Inj SC SCH (21:15)
[2016-12-21] MEDS: Insulin Lispro Mix 75/25 100 units/ml (HumaLog) 10ml SC SCH ×2 (07:53→16:58)
[2016-12-21] MEDS: Insulin Lispro (humaLOG) 100 Units/ml Inj SC SCH ×5 (07:54→17:00)
[2016-12-21] MEDS: Divalproex 500 mg DR(BID formulation) PO SCH ×2 (09:00→17:01)
[2016-12-21] MEDS: Potassium Chloride 20 mEq ER Tab PO SCH (09:01)
[2016-12-21] MEDS: Pantoprazole 40 mg EC Tab PO SCH (09:01)
--- NOTE | 2016-12-21 09:22 | PCM.PYCHPN ---
Psychiatric Progress Note - Psychiatric Progress Note Patient seen today, length of contact: Patient evaluated, chart reviewed, case discussed with team, 35 min Patient Chief Complaint: "I'm nervous" Problems Identified/Issues Discussed: Patient reports continued delusions, including beliefs that her life is in danger and that an MD killed himself in front of her. She also reported AH, yesterday. We discussed continued titration of Risperdal for continued psychosis. r/b/se reviewed. No adverse effects to medications noted. Diagnostic Results: VPA 12/13/16- 39.3 Medication Change: Yes (Increase Risperdal to 1 mg PO Daily/ 4 mg PO HS) Medical Record Reviewed: Yes Mental Status Examination - Cognitive Function Orientation: Person, Place, Situation, Time Memory: Intact Attention: WNL Concentration: WNL Association: Loose Fund of Knowledge: WNL Decription of patient's judgement and insights: Poor insight, fair judgment - Mood Mood: Anxious - Affect Affect: Broad - Speech Speech: Appropriate - Formal Thought Process Formal Thought Process: Delusions, Paranoia Psychotic Thoughts and Behaviors: +Continued paranoid delusions - Suicidal Ideation Suicidal Ideation: No - Homicidal Ideation Homicidal Ideation: No Goal/Treatment Plan - Goal/Treatment Plan Need for Continued Stay: Remain at risks for inpatient hospitalization, Severe depression anxiety, Discharge may exacerbated symptoms Progress Toward Problem(s) and Goals/Treatment Plan: 56 yo female w/ h/o MDD w/ psychotic features vs. schizoaffective disorder, presents w/ AH, delusions, depressed mood and anxiety, needs inpatient admission for treatment and stabilization. -Medicine consult appreciated -Continue Prozac 40 mg PO Daily -Increase Risperdal to 1 mg PO AM/ 4 mg PO HS -Individual and group therapy -OB consult appreciated Estimated Date of D/C: 12/26/16
[2016-12-21] MEDS: Alum-Mag Hydrox-Simethicone Susp (30 mL) PO PRN (13:59)
[2016-12-21] MEDS: Albuterol-Ipratrop 3 mg / 0.5 (3 ml) UD INH PRN (15:36)
[2016-12-21] MEDS: Insulin Detemir 100 Units/ml Inj SC SCH (21:08)
[2016-12-22] MEDS: Insulin Lispro Mix 75/25 100 units/ml (HumaLog) 10ml SC SCH ×2 (08:05→16:30)
[2016-12-22] MEDS: Pantoprazole 40 mg EC Tab PO SCH (09:07)
[2016-12-22] MEDS: Potassium Chloride 20 mEq ER Tab PO SCH (09:07)
[2016-12-22] MEDS: Divalproex 500 mg DR(BID formulation) PO SCH ×2 (09:10→16:29)
[2016-12-22] MEDS: Insulin Lispro (humaLOG) 100 Units/ml Inj SC SCH ×5 (09:18→21:34)
--- NOTE | 2016-12-22 09:47 | PCM.PYCHPN ---
Psychiatric Progress Note - Psychiatric Progress Note Patient seen today, length of contact: discussed with team Patient Chief Complaint: i'm going to craig him Problems Identified/Issues Discussed: pt denies side effects with increase in risperdal. pt is still expressing paranoid delusions. no agitation/aggression. Medication Change: No ( ) Medical Record Reviewed: Yes Mental Status Examination - Cognitive Function Orientation: Person, Place, Situation, Time Memory: Intact Attention: WNL Concentration: WNL Association: Loose Fund of Knowledge: WNL Decription of patient's judgement and insights: fair - Mood Mood: Anxious - Affect Affect: Broad - Speech Speech: Appropriate - Formal Thought Process Formal Thought Process: Delusions, Paranoia Psychotic Thoughts and Behaviors: regarding her land lord - Suicidal Ideation Suicidal Ideation: No - Homicidal Ideation Homicidal Ideation: No Goal/Treatment Plan - Goal/Treatment Plan Need for Continued Stay: Remain at risks for inpatient hospitalization, Severe depression anxiety, Discharge may exacerbated symptoms Progress Toward Problem(s) and Goals/Treatment Plan: schizoaffective disorder continue current treatment- risperdal was increased disposition planning Estimated Date of D/C: 12/26/16
[2016-12-22] MEDS: Alum-Mag Hydrox-Simethicone Susp (30 mL) PO PRN ×2 (16:36→22:40)
[2016-12-22] MEDS: Albuterol-Ipratrop 3 mg / 0.5 (3 ml) UD INH PRN (18:25)
[2016-12-22] MEDS: Insulin Detemir 100 Units/ml Inj SC SCH (21:01)
[2016-12-23] MEDS: Insulin Lispro Mix 75/25 100 units/ml (HumaLog) 10ml SC SCH ×2 (08:00→16:29)
[2016-12-23] MEDS: Insulin Lispro (humaLOG) 100 Units/ml Inj SC SCH ×5 (08:01→21:22)
[2016-12-23] MEDS: Pantoprazole 40 mg EC Tab PO SCH (08:19)
[2016-12-23] MEDS: Divalproex 500 mg DR(BID formulation) PO SCH ×2 (08:19→16:22)
[2016-12-23] MEDS: Potassium Chloride 20 mEq ER Tab PO SCH (08:19)
--- NOTE | 2016-12-23 10:26 | PCM.PYCHPN ---
Psychiatric Progress Note - Psychiatric Progress Note Patient seen today, length of contact: discussed with team Patient Chief Complaint: pt is still very paranoid and delusional and still can hear dr hernandez who has passed way Problems Identified/Issues Discussed: pt was admitted for paranoid delusions Medication Change: No ( ) Medical Record Reviewed: Yes Mental Status Examination - Cognitive Function Orientation: Person, Place, Situation, Time Memory: Intact Attention: WNL Concentration: WNL Association: Loose Fund of Knowledge: WNL - Mood Mood: Anxious - Affect Affect: Broad - Speech Speech: Appropriate - Formal Thought Process Formal Thought Process: Delusions, Paranoia - Suicidal Ideation Suicidal Ideation: No - Homicidal Ideation Homicidal Ideation: No Goal/Treatment Plan - Goal/Treatment Plan Need for Continued Stay: Remain at risks for inpatient hospitalization, Severe depression anxiety, Discharge may exacerbated symptoms Progress Toward Problem(s) and Goals/Treatment Plan: will continue to titrate risperdal as needed to stabilize the psychosis Estimated Date of D/C: 12/26/16
[2016-12-23] MEDS: Insulin Detemir 100 Units/ml Inj SC SCH (21:24)
[2016-12-24 07:48] LABS: BASO % 0.5 % (0.0-2.0); EOS # 0.1 K/uL (0.0-0.7); EOS % 1.2 % (0.0-4.0); HEMATOCRIT 32.8 % (34.0-47.0); LYMPH # 3.1 K/uL (1.0-4.3); LYMPH % 32.1 % (20.0-40.0); MEAN CELL VOLUME 74.7 fl (81.0-99.0); MEAN CORPUSCULAR HEMOGLOBIN 24.2 pg (27.0-31.0); MEAN CORPUSCULAR HGB CONC 32.3 g/dL (33.0-37.0); MEAN PLATELET VOLUME 8.1 fl (7.2-11.7); MONO # 0.7 K/uL (0.0-0.8); MONO % 7.3 % (0.0-10.0); NEUT # 5.7 K/uL (1.8-7.0); NEUT % 58.9 % (50.0-75.0); WHITE BLOOD COUNT 9.7 K/uL (4.8-10.8)
[2016-12-24] MEDS: Insulin Lispro Mix 75/25 100 units/ml (HumaLog) 10ml SC SCH ×2 (08:11→16:35)
[2016-12-24] MEDS: Insulin Lispro (humaLOG) 100 Units/ml Inj SC SCH ×4 (08:11→21:15)
[2016-12-24] MEDS: Pantoprazole 40 mg EC Tab PO SCH (08:15)
[2016-12-24] MEDS: Potassium Chloride 20 mEq ER Tab PO SCH (08:15)
[2016-12-24] MEDS: Divalproex 500 mg DR(BID formulation) PO SCH ×2 (08:27→16:34)
[2016-12-24 08:31] LABS: ALB/GLOB RATIO 1.1 (1.0-2.1); ALKALINE PHOSPHATASE 105 U/L (38-126); ALT/SGPT 25 U/L (9-52); AST/SGOT 30 U/L (14-36); BILIRUBIN,TOTAL 0.4 mg/dl (0.2-1.3); BLOOD UREA NITROGEN 13 mg/dl (7-17); CALCIUM 9.1 mg/dL (8.4-10.2); CARBON DIOXIDE 27 mmol/L (22-30); CHLORIDE 101 mmol/L (98-107); GFR AFRICAN-AMERICAN > 60; GLUCOSE,RANDOM 220 mg/dL (65-105); POTASSIUM 4.3 MMOL/L (3.6-5.0); SODIUM 140 mmol/l (132-148); TOTAL PROTEIN 7.1 G/DL (6.3-8.2)
[2016-12-24] MEDS: Alum-Mag Hydrox-Simethicone Susp (30 mL) PO PRN ×2 (10:34→21:07)
[2016-12-24] MEDS: Albuterol-Ipratrop 3 mg / 0.5 (3 ml) UD INH PRN (14:47)
--- NOTE | 2016-12-24 16:28 | PCM.PYCHPN ---
Psychiatric Progress Note - Psychiatric Progress Note Patient seen today, length of contact: discussed with team Patient Chief Complaint: pt is still very paranoid and delusional and still can hear dr hernandez who has passed way.pt says that dr hernandez in front of her and still talks to her. Problems Identified/Issues Discussed: pt was admitted for paranoid delusions Medication Change: No ( ) Medical Record Reviewed: Yes Mental Status Examination - Cognitive Function Orientation: Person, Place, Situation, Time Memory: Intact Attention: WNL Concentration: WNL Association: Loose Fund of Knowledge: WNL - Mood Mood: Anxious - Affect Affect: Broad - Speech Speech: Appropriate - Formal Thought Process Formal Thought Process: Delusions, Paranoia - Suicidal Ideation Suicidal Ideation: No - Homicidal Ideation Homicidal Ideation: No Goal/Treatment Plan - Goal/Treatment Plan Need for Continued Stay: Remain at risks for inpatient hospitalization, Severe depression anxiety, Discharge may exacerbated symptoms Progress Toward Problem(s) and Goals/Treatment Plan: will continue to titrate risperdal as needed to stabilize the psychosis Estimated Date of D/C: 12/26/16
--- NOTE | 2016-12-24 19:28 | CP.PCM.PN ---
Subjective - Date & Time of Evaluation Date of Evaluation: 12/24/16 Time of Evaluation: 11:30 - Subjective Subjective: F/U DM, HTN Pt with no AD, NC, Vital signs normal. Objective - Vital Signs/Intake and Output Vital Signs (last 24 hours): Temp Pulse Resp BP Pulse Ox 97.7 F 87 19 122/64 12/24/16 15:33 12/24/16 15:33 12/24/16 15:33 12/24/16 15:33 - Medications Medications: Current Medications Acetaminophen (Tylenol 325mg Tab) 650 mg PO Q4 PRN PRN Reason: pain 4-7 Last Admin: 12/24/16 10:33 Dose: 650 mg Al Hydrox/Mg Hydrox/Simethicone (Maalox Plus 30 Ml) 30 ml PO Q4 PRN PRN Reason: Dyspepsia Last Admin: 12/24/16 10:34 Dose: 30 ml Albuterol/Ipratropium (Duoneb 3 Mg/0.5 Mg (3 Ml) Ud) 3 ml INH RQ6 PRN PRN Reason: Shortness of Breath Last Admin: 12/24/16 14:47 Dose: 3 ml Atorvastatin Calcium (Lipitor) 10 mg PO HS [facility] Last Admin: 12/23/16 21:19 Dose: 10 mg Calcium Carbonate (Oscal) 500 mg PO BID [facility] Last Admin: 12/24/16 16:36 Dose: 500 mg Diphenhydramine HCl (Benadryl) 50 mg PO Q6 PRN PRN Reason: Extrapyramidal Symptoms Last Admin: 12/11/16 21:45 Dose: 50 mg Diphenhydramine HCl (Benadryl) 50 mg PO HS PRN PRN Reason: Sleep Last Admin: 12/13/16 22:31 Dose: 50 mg Diphenhydramine HCl (Benadryl) 50 mg IM Q6 PRN PRN Reason: Extrapyramidal S/S Unable PO Divalproex Sodium (Depakote Dr(*Bid*)) 500 mg PO BID [facility] Last Admin: 12/24/16 16:34 Dose: 500 mg Ferrous Sulfate (Feosol) 325 mg PO BID [facility] Last Admin: 12/24/16 16:34 Dose: 325 mg Fluoxetine HCl (Prozac) 40 mg PO DAILY [facility] Last Admin: 12/24/16 08:16 Dose: 40 mg Haloperidol (Haldol) 5 mg PO Q4 PRN PRN Reason: Agitation Haloperidol Lactate (Haldol) 5 mg IM Q4 PRN PRN Reason: Agitation, Unable to Take PO Insulin Detemir (Levemir) 40 units SC HS [facility] Last Admin: 12/23/16 21:24 Dose: 40 unit Insulin Human Lispro (Humalog) 0 units SC ACHS [facility] PRN Reason: Protocol Last Admin: 12/24/16 16:35 Dose: 4 u Insulin Lispro Protam/Lispro Human (Humalog Mix 75/25) 9 units SC BIDAC [facility] Last Admin: 12/24/16 16:35 Dose: 9 units Isosorbide Mononitrate (Imdur) 30 mg PO DAILY [facility] Last Admin: 12/24/16 08:15 Dose: 30 mg Lisinopril (Zestril) 5 mg PO DAILY [facility] Last Admin: 12/24/16 08:15 Dose: 5 mg Loperamide HCl (Imodium) 2 mg PO QID PRN PRN Reason: Diarrhea Lorazepam (Ativan) 2 mg PO Q4 PRN PRN Reason: Anxiety/Agitation Last Admin: 12/23/16 21:59 Dose: 2 mg Lorazepam (Ativan) 2 mg IM Q4 PRN PRN Reason: Anxiety/Agitation,Unable PO Magnesium Hydroxide (Milk Of Magnesia) 30 ml PO HS PRN PRN Reason: Constipation Metoprolol Tartrate (Lopressor) 25 mg PO DAILY [facility] Last Admin: 12/24/16 08:12 Dose: 25 mg Montelukast Sodium (Singulair) 10 mg PO HS [facility] Last Admin: 12/23/16 21:19 Dose: 10 mg Ondansetron HCl (Zofran Inj) 4 mg IM Q4 PRN PRN Reason: Nausea/Vomiting Pantoprazole Sodium (Protonix Ec Tab) 40 mg PO DAILY [facility] Last Admin: 12/24/16 08:15 Dose: 40 mg Potassium Chloride (K-Dur 20 Meq Er Tab) 40 meq PO DAILY [facility] Last Admin: 12/24/16 08:15 Dose: 40 meq Risperidone (Risperdal Tab) 1 mg PO DAILY [facility] Last Admin: 12/24/16 08:15 Dose: 1 mg Risperidone (Risperdal Tab) 4 mg PO HS [facility] Last Admin: 12/23/16 21:19 Dose: 4 mg Sitagliptin Phosphate (Januvia) 100 mg PO DAILY [facility] Last Admin: 12/24/16 08:27 Dose: 100 mg - Labs Labs: 12/24/16 06:50 12/24/16 06:50 - Constitutional Appears: No Acute Distress - Head Exam Head Exam: NORMAL INSPECTION - Eye Exam Eye Exam: PERRL - Neck Exam Neck Exam: Normal Inspection - Respiratory Exam Respiratory Exam: NORMAL BREATHING PATTERN - Cardiovascular Exam Cardiovascular Exam: REGULAR RHYTHM - GI/Abdominal Exam GI & Abdominal Exam: Soft, Normal Bowel Sounds - Extremities Exam Extremities Exam: Normal Inspection - Back Exam Back Exam: NORMAL INSPECTION - Neurological Exam Neurological Exam: Alert. absent: Motor Sensory Deficit - Psychiatric Exam Psychiatric exam: Anxious - Skin Skin Exam: Warm Assessment and Plan (1) IDDM (insulin dependent diabetes mellitus) Status: Chronic (2) Hyperglycemia Status: Chronic (3) COPD (chronic obstructive pulmonary disease) Status: Chronic (4) HTN (hypertension) Status: Chronic (5) Dyslipidemia Status: Chronic (6) Post-menopausal bleeding Status: Acute - Assessment and Plan (Free Text) Plan: Hgb 10.6 , Anemia Iron defifciency , to have f/u Endometrial Bx and EGD as out patient, to have Feosol po , BS elevated, Patient with no compliance with diet , discussed with her , increase Humalog 75/25.
[2016-12-24] MEDS: Insulin Detemir 100 Units/ml Inj SC SCH (21:17)
[2016-12-25] MEDS: Insulin Lispro (humaLOG) 100 Units/ml Inj SC SCH ×4 (07:42→21:19)
[2016-12-25] MEDS: Insulin Lispro Mix 75/25 100 units/ml (HumaLog) 10ml SC SCH ×2 (07:43→17:13)
[2016-12-25] MEDS: Potassium Chloride 20 mEq ER Tab PO SCH (09:02)
[2016-12-25] MEDS: Divalproex 500 mg DR(BID formulation) PO SCH ×2 (09:03→17:15)
[2016-12-25] MEDS: Pantoprazole 40 mg EC Tab PO SCH (09:04)
--- NOTE | 2016-12-25 09:43 | PCM.PYCHPN ---
Psychiatric Progress Note - Psychiatric Progress Note Patient seen today, length of contact: discussed with team Patient Chief Complaint: it's ok Problems Identified/Issues Discussed: pt still expressing delusional thoughts, visible in the milieu. interacts with staff. denies medication side effects. no evidence of sedation/eps Medication Change: No ( ) Medical Record Reviewed: Yes Mental Status Examination - Cognitive Function Orientation: Person, Place, Situation, Time Memory: Intact Attention: WNL Concentration: WNL Association: Loose Fund of Knowledge: WNL Decription of patient's judgement and insights: improving - Mood Mood: Anxious - Affect Affect: Broad - Speech Speech: Appropriate - Formal Thought Process Formal Thought Process: Delusions, Paranoia Psychotic Thoughts and Behaviors: delusional thoughts about providers - Suicidal Ideation Suicidal Ideation: No - Homicidal Ideation Homicidal Ideation: No Goal/Treatment Plan - Goal/Treatment Plan Need for Continued Stay: Remain at risks for inpatient hospitalization, Severe depression anxiety, Discharge may exacerbated symptoms Progress Toward Problem(s) and Goals/Treatment Plan: schizoaffective disorder continue current treatment per primary team disposition planning Estimated Date of D/C: 12/26/16
[2016-12-25] MEDS: Insulin Detemir 100 Units/ml Inj SC SCH (21:22)
[2016-12-25] MEDS: Alum-Mag Hydrox-Simethicone Susp (30 mL) PO PRN (21:56)
[2016-12-26] MEDS: Insulin Lispro (humaLOG) 100 Units/ml Inj SC SCH ×3 (07:56→17:02)
[2016-12-26] MEDS: Insulin Lispro Mix 75/25 100 units/ml (HumaLog) 10ml SC SCH ×2 (07:57→17:01)
[2016-12-26] MEDS: Divalproex 500 mg DR(BID formulation) PO SCH ×2 (08:01→16:59)
[2016-12-26] MEDS: Potassium Chloride 20 mEq ER Tab PO SCH (08:01)
[2016-12-26] MEDS: Pantoprazole 40 mg EC Tab PO SCH (08:02)
--- NOTE | 2016-12-26 10:15 | PCM.PYCHDC ---
Mental Status Examination - Mental Status Examination Orientation: Person, Place, Situation, Time Memory: Intact Mood: Neutral Affect: Broad Speech: Appropriate Attention: WNL Concentration: WNL Association: WNL Fund of Knowledge: WNL Formal Thought Process: Paranoia (Mild chronic paranoia which fluctuates at times) Description of patient's judgement and insight: Fair insight- patient able to understand that she becomes paranoid at times although it can be difficult for her to reality test at times, fair judgment Psychotic Thoughts and Behaviors: +Mild intermittent chronic paranoia, but patient is greatly improved since admission and is able to recognize that some of her thoughts are paranoid at times Suicidal Ideation: No Current Homicidal Ideation?: No Discharge Summary - Discharge Note Reason for Hospitalization: HPI: 56 year old female, with a past medical history of hypertension, diabetes mellitus, depression, appears to have a severe persistent mental illness- MMD with psychosis vs Schizoaffective disorder. She was recently hospitalized with seizures. She is now presenting with delusions that her neighbor and a doctor at [facility] both committed suicide in front of her and AH. She reports she "went blind last week after my seizure...but now i am starting to see." It is unclear if she has visual hallucinations. She reports she does not have any psychiatric providers as she is suing [facility] after her doctor killed himself in front of her. No suicidal ideation/plan/intent. +Depressed mood, + anxiety, +delusions, +AH PMHx: Hypertension, diabetes mellitus, depression, seizure disorder PPHx: Recent treatment at [facility] for MMD w/ psychotic features, as per chart treated with Prozac 40 daily and Risperdal 0.5 mg PO BID. She states she has been in PHP programs, but they did not help. States she can recall 2 previous psych admissions. Reports a prior suicide attempt several years ago when put on Cymbalta. PMD: Dr. Garcia All: Amitriptyline, Duloxetine, Gabapentin, Meformin FHx: Uncle with Alzheimers disease Social history: Lives in [place] with her son, Ricardo. States she has a director home who "is dying from bone cancer." Quit smoking 10 years ago, States "i tried medicinal mj but it made me more anxious. States she used some illicit drugs in her youth, but could not provide details. Laboratory Data: Abnormal Lab Results 12/25/16 12/25/16 12/25/16 06:26 11:14 15:24 POC Glucose (mg/dL) 182 H 191 H Stool Occult Blood Negative 12/25/16 12/26/16 20:11 05:42 POC Glucose (mg/dL) 171 H 237 H Stool Occult Blood Consultations:: List each consultation separately and include: 1. Reason for request. 2. Findings. 3. Follow-up Consultations: Medicine consult Summary of Hospital Course include:: 1. Description of specific treatment plan utilized for patients during their course of treatmen. 2. Summarize the time- course for resolution of acute symptoms and/or regressed behaviors. 3. Describe issues identified and worked on during hospitalization. 4. Describe medication utilized. 5. Describe medical problems identified and treated. 6. Reassessment of suicide risk Summary of Hospital Course: Patient admitted to the inpatient psychiatry unit due to paranoia, persecutory delusions and auditory hallucinations. Patient was stabilized on Risperdal 1 mg PO AM/ 4 mg PO HS. She no longer reports AH and is less paranoid w/ less delusions. She continues to have some mild paranoia at times, but is able to understand that her thoughts are paranoid and has improved insight into her psychotic symptoms. She feels safe enough to return home and no longer is worried about her landlord/neighbors trying to harm her (delusions upon admission). She was counseled on the importance of outpatient follow-up and compliance with medications. - Final Diagnosis (DSM 5) Condition upon Discharge: STABLE DSM 5: Schizoaffective Disorder Disposition: HOME/ ROUTINE Follow-up Treatment Plan: 56 yo female w/ h/o MDD w/ psychotic features vs. schizoaffective disorder, presented w/ AH, delusions, depressed mood and anxiety, now improved clinically and psychiatrically stable for discharge. -Medical medications as per Dr. Salvador -Continue Prozac 40 mg PO Daily -Continue Risperdal 1 mg PO AM/ 4 mg PO HS -Discharge to home w/ outpatient follow-up -Patient has most of her prescriptions already at home, including Prozac Prescriptions/Medication Reconciliation: Montelukast [Singulair] 1 tab PO HS #30 tab risperiDONE [RisperDAL Tab] 1 mg PO DAILY #30 tab risperiDONE [RisperDAL Tab] 4 mg PO HS #60 tab SITagliptin [Januvia] 100 mg PO DAILY #30 tab - Smoking Cessation Smoking Cessation Medication prescribed: No Reason for not providing: Not indicated - Antipsychotic Medications Pt discharged on 2 or more routine antipsychotic medications: No
[2016-12-26] MEDS ORDERED: Alum-Mag Hydrox-Simethicone Susp (30 mL) PO ONE (14:07)
[2016-12-26 15:52] VITALS: BP 124/65; PULSE 81; RESP 20; TEMP 97.5
== END 2016-12-26 17:54 | disposition home or self-care (01) | DRG 876 ==
LOC: H.STEP 19:03
PROVIDERS: ADMIT Psychiatry & Neurology Psychiatry; ATTEND Psychiatry & Neurology Psychiatry
PROC: GZHZZZZ Group Psychotherapy (ICD-10-PCS; principal; 2016-12-11)
PROC: 0UDB7ZX Extraction of Endometrium, Via Natural or Artificial Opening, Diagnostic (ICD-10-PCS; 2016-12-12)
DX: F25.9 Schizoaffective disorder, unspecified (principal); I42.0 Dilated cardiomyopathy; E11.65 Type 2 diabetes mellitus with hyperglycemia; I10 Essential (primary) hypertension; E78.5 Hyperlipidemia, unspecified; F41.9 Anxiety disorder, unspecified; G40.909 Epilepsy, unspecified, not intractable, without status epilepticus; I25.5 Ischemic cardiomyopathy; J44.9 Chronic obstructive pulmonary disease, unspecified; N95.0 Postmenopausal bleeding; Z95.0 Presence of cardiac pacemaker; E66.9 Obesity, unspecified; Z68.33 Body mass index [BMI] 33.0-33.9, adult; F32.9 Major depressive disorder, single episode, unspecified; D50.9 Iron deficiency anemia, unspecified

== ENCOUNTER 2016-12-28 19:15 | Emergency (ER) | payer MEDICARE, MEDICAID ==
[2016-12-28 19:22] VITALS: RESP 16; TEMP 98.7; O2SAT 100
[2016-12-28 19:36] VITALS: BP 124/59; PULSE 82
[2016-12-28 21:26] LABS: BASO # 0.1 K/uL (0.0-0.2); BASO % 0.5 % (0.0-2.0); EOS # 0.1 K/uL (0.0-0.7); LYMPH # 3.8 K/uL (1.0-4.3); LYMPH % 32.1 % (20.0-40.0); MEAN CELL VOLUME 75.5 fl (81.0-99.0); MEAN CORPUSCULAR HEMOGLOBIN 24.2 pg (27.0-31.0); MEAN CORPUSCULAR HGB CONC 32.1 g/dL (33.0-37.0); MEAN PLATELET VOLUME 8.8 fl (7.2-11.7); MONO # 0.8 K/uL (0.0-0.8); MONO % 6.6 % (0.0-10.0); NEUT % 59.8 % (50.0-75.0); RED CELL DISTRIBUTION WIDTH 17.9 % (11.5-14.5); WHITE BLOOD COUNT 11.8 K/uL (4.8-10.8)
[2016-12-28 21:38] LABS: ALB/GLOB RATIO 1.4 (1.0-2.1); ALKALINE PHOSPHATASE 92 U/L (38-126); ALT/SGPT 26 U/L (9-52); AST/SGOT 30 U/L (14-36); BILIRUBIN,TOTAL 0.2 mg/dl (0.2-1.3); BLOOD UREA NITROGEN 18 mg/dl (7-17); CALCIUM 9.5 mg/dL (8.4-10.2); CARBON DIOXIDE 26 mmol/L (22-30); CHLORIDE 101 mmol/L (98-107); GFR AFRICAN-AMERICAN > 60; GLUCOSE,RANDOM 219 mg/dL (65-105); MAGNESIUM 1.6 MG/DL (1.6-2.3); PHOSPHOROUS 3.6 mg/dl (2.5-4.5); POTASSIUM 4.2 MMOL/L (3.6-5.0); SODIUM 140 mmol/l (132-148)
[2016-12-28 21:45] LABS: PARTIAL THROMBOPLASTIN TIME 21.9 SECONDS (23.3-32.5)
[2016-12-28 22:07] LABS: THYROID STIMULATING HORMONE 1.13 mIU/ML (0.46-4.68)
--- NOTE | 2016-12-28 22:28 | ED PDOC ---
HPI: Chest Pain Time Seen by Provider: 12/28/16 20:21 Chief Complaint (Nursing): Chest Pain Chief Complaint (Provider): Chest Pain History Per: Patient (x) History/Exam Limitations: no limitations Onset/Duration Of Symptoms: Days (1), Intermittent Episodes, Sudden Onset Current Symptoms Are (Timing): Intermittent Episodes Quality: Sharp ("like a knife in the chest") Associated Symptoms: Other (SOB) Additional Complaint(s): 56 year old female presents to ED with complaints of intermittent, mild chest pain multiple times a day and has a past medical history of cardiac disorders, DM, seizures, COPD, depression, anxiety, and substance abuse. Notes that it feels "like a knife in the chest", resolves spontaneously, and is associated with a feeling of a coming panic attack. (+) intermittent SOB and leg edema. Patient was recently discharged from a hospital x2 days after prolonged admission for chest pain, anxiety, and depression. Notes that her medications were changed during her stay, and that she was taken off benzodiazepines and opiates. Believes she should be back on Savela for neuropathy and Lasiz for leg swelling. Of note, patient had a full cardiac work up while admitted, and it was determined to be from panic attacks. Patient notes that she is currently not experiencing chest pain. PCP: Jeanne Fajardo Past Medical History Reviewed: Historical Data, Nursing Documentation, Vital Signs Vital Signs: Last Vital Signs Temp 98.7 F 12/28/16 19:19 Pulse 82 12/28/16 19:33 Resp 16 12/28/16 19:19 BP 124/59 L 12/28/16 19:33 Pulse Ox 100 12/28/16 22:44 - Medical History PMH: Anxiety, Bipolar Disorder, Cardia Arrhythmia, COPD, Depression, Diabetes, HTN, Seizures Denies: HIV, Chronic Kidney Disease - Surgical History Surgical History: Cholecystectomy, Pacemaker Denies: No Surg Hx, CABG - Family History Family History: States: Diabetes - Social History Drugs: Opiates (Hx of opiate dependency), Other (Hx of benzo dependency) - Home Medications Home Medications: Ambulatory Orders Medication Instructions Recorded Calcium Carbonate [Oscal] 1 tab PO BID 12/02/16 Isosorbide Mononitrate [Imdur] 1 tab PO DAILY 12/02/16 Metoprolol Tartrate [Lopressor] 1 tab PO DAILY 12/02/16 Insulin Detemir [Levemir] 40 units SC HS 30 Days 12/05/16 Lisinopril [Zestril] 1 tab PO DAILY #30 tab 12/05/16 Pantoprazole Sodium [Protonix] 1 tab PO DAILY #30 tablet.dr 12/05/16 Potassium Chloride [K-Tab ER] 40 meq PO DAILY #7 tablet.er 12/05/16 Divalproex [Depakote DR(*BID*)] 500 mg PO BID tcp 12/26/16 FLUoxetine [Prozac] 40 mg PO DAILY cap 12/26/16 Ferrous Sulfate [Feosol] 325 mg PO BID tab 12/26/16 Insulin Lispro Mix 75/25 [HumaLog 9 units SC BIDAC vial 12/26/16 MIX 75/25] Montelukast [Singulair] 1 tab PO HS #30 tab 12/26/16 SITagliptin [Januvia] 100 mg PO DAILY #30 tab 12/26/16 risperiDONE [RisperDAL Tab] 1 mg PO DAILY #30 tab 12/26/16 risperiDONE [RisperDAL Tab] 4 mg PO HS #60 tab 12/26/16 Furosemide [Lasix] 20 mg PO BID #20 tab 12/28/16 - Allergies Allergies/Adverse Reactions: Allergies Allergy/AdvReac Type Severity Reaction Status Date / Time amitriptyline HCl Allergy ITCHING Verified 12/06/16 21:12 [From Elavil] duloxetine HCl Allergy ITCHING Verified 12/06/16 21:12 [From Cymbalta] gabapentin [From Neurontin] Allergy ITCHING Verified 12/06/16 21:12 metformin Allergy ITCHING Verified 12/06/16 21:12 methotrexate Allergy ITCHING Verified 12/06/16 21:12 soy Allergy ITCHING Verified 12/06/16 21:12 LEON Risk Score for UA/NSTEMI - LEON Risk Score Age > 64: NO LEON Score: 0 Risk %: 5% Curb-65 Severity Score - CURB-65 Severity Score Confusion: No Age >64: No Curb-65 Score: 0 Percentage 30-day mortality: 0.6% Wells Criteria for PE - Wells Criteria for Pulmonary Embolism Heart Rate >100: No Hemoptysis: No Total Score: 0 Review of Systems ROS Statement: Except As Marked, All Systems Reviewed And Found Negative Cardiovascular: Positive for: Chest Pain Respiratory: Positive for: Shortness of Breath Musculoskeletal: Positive for: Leg Pain (leg edema) Physical Exam - Reviewed Nursing Documentation Reviewed: Yes Vital Signs Reviewed: Yes - Physical Exam Appears: Positive for: Well, No Acute Distress Head Exam: Positive for: ATRAUMATIC Skin: Positive for: Normal Color Eye Exam: Positive for: Normal appearance ENT: Positive for: Normal ENT Inspection Neck: Positive for: Normal Cardiovascular/Chest: Positive for: Regular Rate, Rhythm. Negative for: Murmur Respiratory: Positive for: Normal Breath Sounds. Negative for: Accessory Muscle Use, Respiratory Distress Gastrointestinal/Abdominal: Positive for: Normal Exam Extremity: Positive for: Tenderness (Bilateral trace lower leg edema) Neurologic/Psych: Positive for: Alert, Oriented, Mood/Affect (mildly anxious affect). Negative for: Motor/Sensory Deficits - Laboratory Results Result Diagrams: 12/28/16 21:20 12/28/16 21:20 - ECG O2 Sat by Pulse Oximetry: 100 (RA) Pulse Ox Interpretation: Normal Medical Decision Making Medical Decision Makin Initial impression: anxiety, leg edema Initial plan: * EKG * Labs * Magnesium * Phosphorus * TSH * Trop I * D Dimer * PTT/PT * CXR * BCx * UA Labs reviewed and stable c/w recent results Pt asymptomatic and eager to go home. DW pt findings and plan of care. Will restart low dose lasix. Scribe Attestation: Documented by Radha Carrasco acting as a scribe for July Patino MD. Scribe Attestation: All medical record entries made by the Scribe were at my direction and personally dictated by me. I have reviewed the chart and agree that the record accurately reflects my personal performance of the history, physical exam, medical decision making, and the department course for this patient. I have also personally directed, reviewed, and agree with the discharge instructions and disposition. Disposition - Clinical Impression Clinical Impression: Chest pain, Anxiety Counseled Patient/Family Regarding: Studies Performed, Diagnosis, Need For Followup, Rx Given - Disposition Referrals: Jeanne Fajardo MD [Staff Provider] - Disposition: Routine/Home Disposition Time: 22:00 Condition: IMPROVED Additional Instructions: CONTINUE ALL YOUR MEDICATIONS PRESCRIBED FOLLOW UP WITH DR FAJARDO SOON POSSIBLE Prescriptions: Furosemide [Lasix] 20 mg PO BID #20 tab Instructions: Leg Edema (ED), Anxiety (ED)
--- NOTE | 2016-12-29 08:58 | RAD ---
HISTORY: Chest pain. COMPARISON: 12/07/2016 FINDINGS: LUNGS: No active pulmonary disease. PLEURA: No significant pleural effusion identified, no pneumothorax apparent. CARDIOVASCULAR: No radiographic findings to suggest acute or significant cardiovascular disease. Position/ configuration of pacemaker device: Satisfactory. OSSEOUS STRUCTURES: No significant abnormalities. VISUALIZED UPPER ABDOMEN: Normal. OTHER FINDINGS: None. IMPRESSION: No active disease. No significant interval change compared to the prior examination(s).
--- NOTE | 2016-12-29 12:26 | CARD ---
APPROVED REPORT EKG Measurement Heart [id number] <Conclusion> Atrial-sensed ventricular-paced rhythm Abnormal ECG
== END 2016-12-28 23:48 | disposition home or self-care (01) ==
LOC: H.ER 19:15
DX: R07.9 Chest pain, unspecified (principal); F41.9 Anxiety disorder, unspecified; R60.0 Localized edema; E11.9 Type 2 diabetes mellitus without complications; F31.9 Bipolar disorder, unspecified; I10 Essential (primary) hypertension; Z79.4 Long term (current) use of insulin; Z95.0 Presence of cardiac pacemaker; J44.9 Chronic obstructive pulmonary disease, unspecified

== ENCOUNTER 2017-08-06 14:57 | Inpatient (IN) | payer MEDICARE, MEDICAID ==
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
[2017-08-06 17:07] LABS: BASO # 0.2 K/uL (0.0-0.2); BASO % 1.6 % (0.0-2.0); EOS # 0.1 K/uL (0.0-0.7); EOS % 0.8 % (0.0-4.0); LYMPH # 4.4 K/uL (1.0-4.3); LYMPH % 34.4 % (20.0-40.0); MEAN CELL VOLUME 81.9 fl (81.0-99.0); MEAN CORPUSCULAR HEMOGLOBIN 26.4 pg (27.0-31.0); MEAN CORPUSCULAR HGB CONC 32.2 g/dL (33.0-37.0); MEAN PLATELET VOLUME 8.8 fl (7.2-11.7); MONO # 0.8 K/uL (0.0-0.8); MONO % 6.4 % (0.0-10.0); NEUT # 7.3 K/uL (1.8-7.0); NEUT % 56.8 % (50.0-75.0); NRBC % 0.6 % (0.0-0.0); RBC 5.38 Mil/uL (3.80-5.20); RED CELL DISTRIBUTION WIDTH 14.5 % (11.5-14.5); WHITE BLOOD COUNT 12.8 K/uL (4.8-10.8)
[2017-08-06 17:15] LABS: HEMOGLOBIN 14.2 g/dL (12.0-16.0)
[2017-08-06 17:38] LABS: ALB/GLOB RATIO 1.2 (1.0-2.1); ALBUMIN 4.4 g/dL (3.5-5.0); ALT/SGPT 40 U/L (9-52); AST/SGOT 33 U/L (14-36); BLOOD UREA NITROGEN 11 mg/dl (7-17); CALCIUM 9.6 mg/dL (8.4-10.2); GFR AFRICAN-AMERICAN > 60; GFR NON-AFRICAN AMERICAN > 60
[2017-08-06 18:14] LABS: BARBITURATES, UR NEGATIVE (NEGATIVE); OPIATES, UR NEGATIVE (NEGATIVE); PHENCYCLIDINE, UR NEGATIVE (NEGATIVE)
[2017-08-06 18:36] LABS: BENZODIAZEPINES, UR POSITIVE (NEGATIVE)
[2017-08-06 19:08] LABS: SQUAMOUS EPITHIAL 2 /hpf (0-5); URINE BILIRUBIN NEGATIVE (NEGATIVE); URINE BLOOD NEGATIVE (NEGATIVE); URINE CALCIUM OXALATE CRYSTALS FEW /hpf (<OCC); URINE CLARITY CLOUDY (Clear); URINE COLOR YELLOW (YELLOW); URINE GLUCOSE (UA) NEG (Normal); URINE LEUKOCYTE ESTERASE NEG Leu/uL (Negative); URINE NITRATE NEGATIVE (NEGATIVE); URINE PROTEIN 30 mg/dL (NEGATIVE); URINE UROBILINOGEN 0.2-1.0 mg/dL (0.2-1.0)
[2017-08-06] MEDS ORDERED: Magnesium Hydroxide Susp 30 ml UD PO PRN (22:28)
[2017-08-06] MEDS ORDERED: Alum-Mag Hydrox-Simethicone Susp (30 mL) PO PRN (22:28)
[2017-08-06] MEDS ORDERED: DiphenhydrAMINE 50 mg/ml Inj IM PRN (22:28)
--- NOTE | 2017-08-06 22:50 | PCM.BM ---
<Chasity Morley - Last Filed: 08/06/17 22:48> Treatment Plan Problems - Problems identified on initial assessmt Medication nonadherence Date Initiated: 08/06/17 Time Initiated: 22:49 Assessment reference: NA Status: Active Altered Sleep Patterns Date Initiated: 08/06/17 Time Initiated: 22:49 Assessment reference: NA Status: Active Hopelessness/Helplessness Date Initiated: 08/06/17 Time Initiated: 22:50 Assessment reference: NA Status: Active Treatment assets and liabiliti Patient Assests: cooperative, self-reliant, ADL independent, good support system Patient Liabilities: medical problems <Wilfredo Treviño J - Last Filed: 08/15/17 12:39> Family Contact Family involvement: Family/SO is involved Family contact: Patient agrees to contact, Family has been contacted by patient , Telephone contact initiated by staff Family contact name: Ricardo Ramos (Son) Family contact comment: Ricardo is concerned for pt's lack of energy and motivation. Pt has also been verbalizing suicidal ideations to son for days prior to admission with heightened anxiety and decreased sleep. - Goals for Treatment Patient goals for treatment: Pt would like decreased depression and increased sleep and energy. Discharge/Continuing Care - Education Needs Education Needs: Family Medication, Family Coping Skills, Family Community resources, Family Aftercare Safety Plan, Patient Medication, Patient Diagnosis/ Disease Process, Patient Coping Skills, Patient Community resources, Patient Aftercare Safety Plan - Discharge Discharge Criteria: Tolerates medication w/o severe side effects, Free of Suicidal thoughts, Normal sleep pattern, Reduction of target symptoms Discharge to:: Home, With Family - Treatment Team Participation Discussed with Family/SO: Yes Was Patient/Family/SO present at Treatment Team Meeting: Yes <Thea Clifford - Last Filed: 08/15/17 13:13> - Diagnosis (1) Depression Status: Acute Interventions: 08/15/17 13:13 psychotherapy pharmacotherapy
[2017-08-07 06:41] LABS: T4 9.36 ug/dl (5.5-11.0)
--- NOTE | 2017-08-07 07:55 | RAD ---
HISTORY: ROUTINE COMPARISON: Chest radiograph 12/28/2016. FINDINGS: LUNGS: No active pulmonary disease. PLEURA: No significant pleural effusion identified, no pneumothorax apparent. CARDIOVASCULAR: Borderline cardiomegaly. No pulmonary vascular derangement identified. Implanted pacemaker/ defibrillator in position. OSSEOUS STRUCTURES: No significant abnormalities. VISUALIZED UPPER ABDOMEN: Normal. OTHER FINDINGS: None. IMPRESSION: No interval acute cardiopulmonary disease appreciated. Cardiac size remains upper limits of normal. Pacemaker/defibrillator in position.
[2017-08-07] MEDS: Pantoprazole 40 mg EC Tab PO SCH (12:02)
--- NOTE | 2017-08-07 14:18 | PCM.PSYCH ---
Initial Psychiatric Evaluation - Initial Psychiatric Evaluation Type of Admission: Voluntary Chief Complaint (in patient's own words): I am so tired nothing is working for me Patient's Reaction to Hospitalization: pt requested help History of Present Illness and Precipitating Events: pt with previous diagnosis of depression with psychotic features, presented to ER with suicidal ideations with plan to overdose on her medications, pt recently discharged from hospital following with primary care, pt however feeling anxious and depressed, with insomnia hopelessness and helplessness, pt stopped her medications for two weeks and started compensating currently reporting passive suicidal ideations with no plan on the unit, denied homicidal ideations denied psychotic symptoms Current Medications: Active Medications Generic Name Dose Route Start Last Admin Trade Name Freq PRN Reason Stop Dose Admin Acetaminophen 650 mg 08/06/17 22:28 08/07/17 12:02 Tylenol 325mg Tab PO 650 mg Q4 PRN Administration Pain, moderate (4-7) Al Hydrox/Mg Hydrox/Simethicone 30 ml 08/06/17 22:28 Maalox Plus 30 Ml PO Q4 PRN Dyspepsia Diphenhydramine HCl 50 mg 08/06/17 22:28 Benadryl IM Q6 PRN Extrapyramidal S/S Unable PO Diphenhydramine HCl 50 mg 08/06/17 22:28 Benadryl PO Q6 PRN Extrapyramidal Symptoms Diphenhydramine HCl 50 mg 08/06/17 22:39 Benadryl PO HS PRN Sleep Haloperidol 5 mg 08/06/17 22:28 Haldol PO Q4 PRN Agitation Haloperidol Lactate 5 mg 08/06/17 22:28 Haldol IM Q4 PRN Agitation, Unable to Take PO Lorazepam 2 mg 08/06/17 22:28 Ativan IM Q4 PRN Anxiety/Agitation,Unable PO Lorazepam 1 mg 08/06/17 22:28 Ativan PO Q4 PRN Anxiety/Agitation Magnesium Hydroxide 30 ml 08/06/17 22:28 Milk Of Magnesia PO HS PRN Constipation Pantoprazole Sodium 40 mg 08/07/17 10:15 08/07/17 12:02 Protonix Ec Tab PO 40 mg DAILY ANTONIETTA Administration Sertraline HCl 25 mg 08/07/17 10:48 08/07/17 12:09 Zoloft PO 25 mg DAILY ANTONIETTA Administration Sitagliptin Phosphate 100 mg 08/07/17 09:00 12/19/17 08:52 Januvia PO 100 mg DAILY ANTONIETTA Administration Trazodone HCl 50 mg 08/06/17 22:40 08/06/17 23:09 Desyrel PO 50 mg HS PRN Administration Sleep Past Psychiatric History - Past Psychiatric History Explanation of prior treatment: multiple inpatient hospitalizations for depression and psychosis History of Abuse: denied History of ETOH/Drug Use: history of abuse of medications including pain medications, benzodiazepines History of Family Illness: denied Pertinent Medical Hx (Current Medical&Sleep Prob, Allergies): Allergies Allergy/AdvReac Type Severity Reaction Status Date / Time amitriptyline HCl Allergy ITCHING Verified 08/06/17 15:39 [From Elavil] duloxetine HCl Allergy ITCHING Verified 08/06/17 15:39 [From Cymbalta] gabapentin [From Neurontin] Allergy ITCHING Verified 08/06/17 15:39 metformin Allergy ITCHING Verified 08/06/17 15:39 methotrexate Allergy ITCHING Verified 08/06/17 15:39 soy Allergy ITCHING Verified 08/06/17 15:39 SITagliptin [Januvia] 100 mg PO DAILY 08/06/17 Temazepam [Restoril] 30 mg PO HS 08/06/17 Zolpidem [Ambien] 10 mg PO HS 08/06/17 Mental Status Examination - Personal Presentation Personal Presentation: Looks older than stated age Additional comments: dressed in a hospital gown, unkempt - Affect Affect: Constricted, Depressed - Motor Activity Motor Activity: Psychomotor Retardation - Reliability in Providing Information Reliability in Providing Information: Poor, due to altered mood - Speech Speech: Relevant - Mood Mood: Depressed, Anxious - Formal Thought Process Formal Thought Process: Circumstantial - Hallucinations/Delusions Additional comments: pt denied any current perceptual disturbances, non elicited - Cognitive Functions Orientation: Person, Place Sensorium: Alert Attention/Concentration: Attentive Abstract Thinking: Donovan Judgement: Imparied, as evidence by: Poor judgement, Imparied, as evidence by: Lack of insight into illness - Risk Risk: Diminished functioning - Strength & Assets Inventory Strength & Assets Inventory: Life experience - Limitations Additional comments: poor compliance DSM 5 DX - DSM 5 DSM 5 Diagnosis: major depression recurrent severe - Recommended/Plan of Treatment Treatment Recommendations and Plan of Treatment: start zoloft 25mg with plan to uptitrate trazodone qhs for insomnia monitor pt for psychopharmacological effects and side effect profile CBT supportive and group therapy Projected ELOS: 7 days Prognosis: guarded Discharge Plan and Discharge Criteria: pt mood stable
[2017-08-08 00:33] VITALS: O2SAT 99
[2017-08-08] MEDS: Pantoprazole 40 mg EC Tab PO SCH ×2 (09:15→09:18)
--- NOTE | 2017-08-08 11:52 | CARD ---
APPROVED REPORT EKG Measurement Heart [id number] <Conclusion> Atrial-sensed ventricular-paced rhythm Abnormal ECG
[2017-08-08] MEDS: Omega-3-Acid Ethyl Esters 1 GM Cap PO SCH ×2 (12:09→17:04)
[2017-08-08] MEDS: Metoprolol Succinate 25 mg XL Tab PO SCH (12:12)
[2017-08-08] MEDS: GlipiZIDE 2.5 mg SR Tab PO SCH (12:13)
--- NOTE | 2017-08-08 12:16 | CP.PCM.CON ---
<Rox Jacome - Last Filed: 08/08/17 14:57> History of Present Illness - History of Present Illness History of Present Illness: HPI: 57 y/o female with PMHx of Depression w/ history of psychotic features, DM , HTN, HLD, Non Ischemic Cardiomyopathy s/p AICD presents to hospital with suicidal ideations. Pt reports that she has been deeply depressed for 3 weeks. States that she was feeling hopeless had severe insomnia. She began having suicidal thoughts and alerted her son to bring her to the hospital. She reports that she has not taking all of her medications for 3 weeks now because she was afraid to. Denied auditory, tactile, or visual hallucinations. States that 1 week ago she had a "Flu" and was seen in the ED. Pt's symptoms eventually began to resolve with OTC cough medication, and at the moment she has a mild residual cough, non productive. Pt has had multiple admission this year for suicide/ depression/psychosis. PMD: Dr. Jose SEPULVEDA: negative for CP, SOB, Abdominal pain, n/v/c/d, weakness,fever, chills, headache. PMHx: HTN, HLD, Insulin dependent DMII, Dilated Non ischemic Cardiomyopathy s/p AICD Medications: Pt has not taken any of her medication for 3 weeks. Active meds include: Sitagliptan 100mg daily, Temazepam 30mg po daily, Zolidem 10mg PO daily FHx: Uncle with Alzheimers disease Social Hx: lives in [place] with her son,Former smoker, quit smoking 10 years ago. Denied illicit drug use Past Patient History - Infectious Disease Hx of Infectious Diseases: None - Past Medical History & Family History Past Medical History?: Yes - Past Social History Smoking Status: Former Smoker - CARDIAC Hx Cardia Arrhythmia: Yes Hx Hypercholesterolemia: Yes Hx Hypertension: Yes Hx Pacemaker: Yes - PULMONARY Hx Chronic Obstructive Pulmonary Disease (COPD): Yes - NEUROLOGICAL Hx Seizures: Yes - HEENT Hx HEENT Problems: No - RENAL Hx Chronic Kidney Disease: No - ENDOCRINE/METABOLIC Hx Endocrine Disorders: Yes Hx Diabetes Mellitus Type 1: Yes - HEMATOLOGICAL/ONCOLOGICAL Hx Human Immunodeficiency Virus (HIV): No - INTEGUMENTARY Hx Dermatological Problems: No - MUSCULOSKELETAL/RHEUMATOLOGICAL Hx Rheumatoid Arthritis: Yes - GASTROINTESTINAL Hx Gastrointestinal Disorders: No Hx Gastroesophageal Reflux: Yes - GENITOURINARY/GYNECOLOGICAL Hx Genitourinary Disorders: No Hx Sexually Transmitted Disorders: No - PSYCHIATRIC Hx Anxiety: Yes Hx Bipolar Disorder: Yes Hx Depression: Yes - SURGICAL HISTORY Hx Cholecystectomy: Yes Hx Coronary Artery Bypass Graft: No - ANESTHESIA Hx Anesthesia: Yes Hx Anesthesia Reactions: No Meds Allergies/Adverse Reactions: Allergies Allergy/AdvReac Type Severity Reaction Status Date / Time amitriptyline HCl Allergy ITCHING Verified 08/06/17 15:39 [From Elavil] duloxetine HCl Allergy ITCHING Verified 08/06/17 15:39 [From Cymbalta] gabapentin [From Neurontin] Allergy ITCHING Verified 08/06/17 15:39 metformin Allergy ITCHING Verified 08/06/17 15:39 methotrexate Allergy ITCHING Verified 08/06/17 15:39 soy Allergy ITCHING Verified 08/06/17 15:39 - Medications Medications: Current Medications Acetaminophen (Tylenol 325mg Tab) 650 mg PO Q4 PRN PRN Reason: Pain, moderate (4-7) Last Admin: 08/08/17 03:39 Dose: 650 mg Al Hydrox/Mg Hydrox/Simethicone (Maalox Plus 30 Ml) 30 ml PO Q4 PRN PRN Reason: Dyspepsia Atorvastatin Calcium (Lipitor) 10 mg PO DAILY ANTONIETTA Diphenhydramine HCl (Benadryl) 50 mg IM Q6 PRN PRN Reason: Extrapyramidal S/S Unable PO Diphenhydramine HCl (Benadryl) 50 mg PO Q6 PRN PRN Reason: Extrapyramidal Symptoms Diphenhydramine HCl (Benadryl) 50 mg PO HS PRN PRN Reason: Sleep Glipizide (Glucotrol Xl) 2.5 mg PO BRK ANTONIETTA Haloperidol (Haldol) 5 mg PO Q4 PRN PRN Reason: Agitation Haloperidol Lactate (Haldol) 5 mg IM Q4 PRN PRN Reason: Agitation, Unable to Take PO Lisinopril (Zestril) 2.5 mg PO DAILY ANTONIETTA Lorazepam (Ativan) 2 mg IM Q4 PRN PRN Reason: Anxiety/Agitation,Unable PO Lorazepam (Ativan) 1 mg PO Q4 PRN PRN Reason: Anxiety/Agitation Last Admin: 08/07/17 17:35 Dose: 1 mg Magnesium Hydroxide (Milk Of Magnesia) 30 ml PO HS PRN PRN Reason: Constipation Metoprolol Succinate (Toprol Xl) 25 mg PO DAILY [facility] [id number] Ethyl Esters (Lovaza) 2 gm PO BID [facility] Pantoprazole Sodium (Protonix Ec Tab) 40 mg PO DAILY [facility] Last Admin: 08/08/17 09:18 Dose: 40 mg Sertraline HCl (Zoloft) 25 mg PO DAILY [facility] Last Admin: 08/08/17 10:08 Dose: 25 mg Sitagliptin Phosphate (Januvia) 100 mg PO DAILY [facility] Last Admin: 08/08/17 09:15 Dose: 100 mg Trazodone HCl (Desyrel) 50 mg PO HS PRN PRN Reason: Sleep Last Admin: 08/07/17 21:22 Dose: 50 mg Physical Exam - Constitutional Appears: Well, Non-toxic, Unkempt - Head Exam Head Exam: ATRAUMATIC, NORMAL INSPECTION - Eye Exam Eye Exam: EOMI - ENT Exam ENT Exam: Mucous Membranes Moist - Respiratory Exam Respiratory Exam: Clear to Auscultation Bilateral. absent: Accessory Muscle Use , Rales, Rhonchi, Wheezes - Cardiovascular Exam Cardiovascular Exam: REGULAR RHYTHM, +S1, +S2. absent: Systolic Murmur - GI/Abdominal Exam GI & Abdominal Exam: Normal Bowel Sounds, Soft. absent: Distended, Tenderness - Extremities Exam Extremities exam: Positive for: normal inspection. Negative for: calf tenderness, pedal edema - Back Exam Back exam: absent: CVA tenderness (L), CVA tenderness (R) - Neurological Exam Neurological exam: Alert, Normal Gait, Oriented x3 - Psychiatric Exam Psychiatric exam: Anxious, Depressed - Skin Skin Exam: Normal Color Results - Vital Signs Recent Vital Signs: Last Vital Signs Temp 96.4 F L 08/08/17 09:00 Pulse 91 H 08/08/17 09:00 Resp 20 08/08/17 09:00 BP 145/72 08/08/17 09:00 Pulse Ox 99 08/08/17 00:33 - Labs Result Diagrams: 08/06/17 16:56 08/06/17 16:56 Labs: Laboratory Results - last 24 hr 08/07/17 08/07/17 05:30 05:30 Hemoglobin A1c 9.9 H RPR Nonreactive Assessment & Plan - Assessment and Plan (Free Text) Assessment: 57 y/o female with PMHx of Depression w/ history of psychotic features, DM, HTN , HLD, Non Ischemic Cardiomyopathy s/p AICD presents to hospital with depression w/ suicidal ideations. #Depression w/ suicidal thoughts -C/w Psych management #URI, resolving -Residual non productive cough improving, afebrile, WBC 12.8 -Cxray- no acute cardiopulmonary disease #DM, Insulin dependent -Sugars in the 200's -HgA1c 9.9 -started Glipizide 2.5mg PO BRK -C/W home med: [place] 100mg PO Daily #HTN, uncontrolled -Elevated in the 150's systolic -Started on Lisinopril 10mg -Continue to monitor BP's #HLD -Started on Levasy 3 fatty acids and Atorvastatin 10mg PO daily -See lipid panel #Non-Ischemic Dilated Cardiomyopathy s/p AICD -Started Metropolol 25mg -Seen by Dr. Murillo in 02/03, AICD last interrogated January 2017 -EKG (08/06)- Ventricular paced <Mitch Slaughter - Last Filed: 08/08/17 17:20> Meds - Medications Medications: Current Medications Acetaminophen (Tylenol 325mg Tab) 650 mg PO Q4 PRN PRN Reason: Pain, moderate (4-7) Last Admin: 08/08/17 03:39 Dose: 650 mg Al Hydrox/Mg Hydrox/Simethicone (Maalox Plus 30 Ml) 30 ml PO Q4 PRN PRN Reason: Dyspepsia Atorvastatin Calcium (Lipitor) 10 mg PO DAILY ANTONIETTA Last Admin: 08/08/17 12:09 Dose: 10 mg Clonazepam (Klonopin) 0.25 mg PO Q8 PRN PRN Reason: Anxiety Last Admin: 08/08/17 14:53 Dose: 0.25 mg Diphenhydramine HCl (Benadryl) 50 mg IM Q6 PRN PRN Reason: Extrapyramidal S/S Unable PO Diphenhydramine HCl (Benadryl) 50 mg PO Q6 PRN PRN Reason: Extrapyramidal Symptoms Diphenhydramine HCl (Benadryl) 50 mg PO HS PRN PRN Reason: Sleep Glipizide (Glucotrol Xl) 2.5 mg PO BRK ANTONIETTA Last Admin: 08/08/17 12:13 Dose: 2.5 mg Haloperidol (Haldol) 5 mg PO Q4 PRN PRN Reason: Agitation Haloperidol Lactate (Haldol) 5 mg IM Q4 PRN PRN Reason: Agitation, Unable to Take PO Lisinopril (Zestril) 2.5 mg PO DAILY [facility] Last Admin: 08/08/17 12:10 Dose: 2.5 mg Lorazepam (Ativan) 2 mg IM Q4 PRN PRN Reason: Anxiety/Agitation,Unable PO Magnesium Hydroxide (Milk Of Magnesia) 30 ml PO HS PRN PRN Reason: Constipation Metoprolol Succinate (Toprol Xl) 25 mg PO DAILY [facility] Last Admin: 08/08/17 12:12 Dose: 25 mg [id number] Ethyl Esters (Lovaza) 2 gm PO BID [facility] Last Admin: 08/08/17 17:04 Dose: 2 gm Pantoprazole Sodium (Protonix Ec Tab) 40 mg PO DAILY [facility] Last Admin: 08/08/17 09:18 Dose: 40 mg Sertraline HCl (Zoloft) 50 mg PO DAILY [facility] Sitagliptin Phosphate (Januvia) 100 mg PO DAILY [facility] Last Admin: 08/08/17 09:15 Dose: 100 mg Trazodone HCl (Desyrel) 100 mg PO [facility] Results - Vital Signs Recent Vital Signs: Last Vital Signs Temp 97.9 F 08/08/17 16:37 Pulse 90 08/08/17 16:37 Resp 18 08/08/17 16:37 BP 134/88 08/08/17 16:37 Pulse Ox 99 08/08/17 00:33 - Labs Result Diagrams: 08/06/17 16:56 08/06/17 16:56 Assessment & Plan - Assessment and Plan (Free Text) Plan: ATTENDING ATTESTATION: Patient was seen and examined and I fully agree with the findings as documented in the resident's consultation note.
--- NOTE | 2017-08-08 13:37 | PCM.PYCHPN ---
Psychiatric Progress Note - Psychiatric Progress Note Patient seen today, length of contact: pt elliot discussed with team chart reviewed Patient Chief Complaint: I did not sleep well Problems Identified/Issues Discussed: pt on evaluation reported continues to be depressed and anxious , poor sleep, no changes in appetite , passive suicidal ideations no plan on the unit denied perceptual disturbances DSM 5 Symptoms Update: major depression Medication Change: Yes (increase zoloft) Medical Record Reviewed: Yes Mental Status Examination - Cognitive Function Orientation: Person, Place Attention: WNL Concentration: WNL Association: WNL Fund of Knowledge: WN Decription of patient's judgement and insights: partial insight fair judgement - Mood Mood: Depressed, Anxious - Affect Affect: Constricted, Depressed - Speech Speech: Soft - Formal Thought Process Formal Thought Process: Circumstantial Psychotic Thoughts and Behaviors: denied psychotic symptoms, non elicited - Suicidal Ideation Suicidal Ideation: No - Homicidal Ideation Homicidal Ideation: No Goal/Treatment Plan - Goal/Treatment Plan Need for Continued Stay: Severe depression anxiety, Discharge may exacerbated symptoms Progress Toward Problem(s) and Goals/Treatment Plan: increase zoloft to 50mg with plan to uptitrate [id number] qhs for insomnia, d/c ativan start klonopin 0.25 prn for anxiety monitor pt for psychopharmacological effects and side effect profile CBT supportive and group therapy
[2017-08-09] MEDS: GlipiZIDE 2.5 mg SR Tab PO SCH (09:00)
[2017-08-09] MEDS: Metoprolol Succinate 25 mg XL Tab PO SCH (09:01)
[2017-08-09] MEDS: Pantoprazole 40 mg EC Tab PO SCH (09:02)
[2017-08-09] MEDS: Omega-3-Acid Ethyl Esters 1 GM Cap PO SCH ×2 (09:04→17:46)
--- NOTE | 2017-08-09 14:13 | PCM.PYCHPN ---
Psychiatric Progress Note - Psychiatric Progress Note Patient seen today, length of contact: pt elliot discussed with team chart reviewed Patient Chief Complaint: I did not sleep well and I am in a lot of pain Problems Identified/Issues Discussed: pt on evaluation reported presenting with anxious mood and affect,related that to the poor sleep,and the neuropathic pain, discussed with pt starting remeron for sleep and depression and starting trileptal for neuropathic pain as hse is allergic to neurontin and cymbalta no changes in appetite , denied S/H I denied perceptual disturbances Medical Problems: multiple inpatient hospitalizations for depression and psychosis Medication Change: Yes (start remeron and trileptal) Medical Record Reviewed: Yes Mental Status Examination - Cognitive Function Orientation: Person, Place Attention: WNL Concentration: WNL Association: WNL Fund of Knowledge: WN Decription of patient's judgement and insights: partial insight fair judgement - Mood Mood: Depressed, Anxious - Affect Affect: Constricted, Depressed - Speech Speech: Soft - Formal Thought Process Formal Thought Process: Circumstantial Psychotic Thoughts and Behaviors: denied psychotic symptoms, non elicited - Suicidal Ideation Suicidal Ideation: No - Homicidal Ideation Homicidal Ideation: No Goal/Treatment Plan - Goal/Treatment Plan Need for Continued Stay: Severe depression anxiety, Discharge may exacerbated symptoms Progress Toward Problem(s) and Goals/Treatment Plan: continue with zoloft to 50mg discontinue trazodone, start remeron 7.5mg qhs and trileptal 150mg bid\ klonopin 0.25 prn for anxiety monitor pt for psychopharmacological effects and side effect profile CBT supportive and group therapy Estimated Date of D/C: 08/16/17
[2017-08-10] MEDS: Omega-3-Acid Ethyl Esters 1 GM Cap PO SCH ×2 (09:40→18:28)
[2017-08-10] MEDS: Pantoprazole 40 mg EC Tab PO SCH (09:40)
[2017-08-10] MEDS: GlipiZIDE 2.5 mg SR Tab PO SCH (09:41)
[2017-08-10] MEDS: Metoprolol Succinate 25 mg XL Tab PO SCH (11:48)
--- NOTE | 2017-08-10 15:13 | PCM.PYCHPN ---
Psychiatric Progress Note - Psychiatric Progress Note Patient seen today, length of contact: pt elliot discussed with team chart reviewed Patient Chief Complaint: I still feel down AND I DO NOT TRUST MYSELF BEING HOME Problems Identified/Issues Discussed: PT ON EVALUATION PRESENTING WITH ANXIOUS MOOD AND AFFECT, RELATED THAT TO THE NEUROPATHIC PAIN CONTINUES TO FEEL DOWN AND REPORTED EARLY INSOMNIA ATTENDING GROUPS, NO REPORTED SIDE EFFECTS OF MEDICATIONS PASSIVE SUICIDAL IDEATIONS WITHOUT ANY SUICIDAL PLAN IN THE HOSPITAL BIT INDICATED NOT FEELING SAFE IF SHE IS TO BE HOME BY HERSELF Medical Problems: DIABETES NEUROPATHY DSM 5 Symptoms Update: MAJOR DEPRESSION RECURRENT SEVERE Medication Change: Yes (INCREASE remeron) Medical Record Reviewed: Yes Mental Status Examination - Cognitive Function Orientation: Person, Place Attention: WNL Concentration: WNL Association: WNL Fund of Knowledge: [facility] Decription of patient's judgement and insights: partial insight fair judgement - Mood Mood: Depressed, Anxious - Affect Affect: Constricted, Depressed - Speech Speech: Soft - Formal Thought Process Formal Thought Process: Circumstantial Psychotic Thoughts and Behaviors: denied psychotic symptoms, non elicited - Suicidal Ideation Suicidal Ideation: No - Homicidal Ideation Homicidal Ideation: No Goal/Treatment Plan - Goal/Treatment Plan Need for Continued Stay: Severe depression anxiety, Discharge may exacerbated symptoms Progress Toward Problem(s) and Goals/Treatment Plan: continue with zoloft to 50mg INCREASE remeron to 15 mg qhs and trileptal 150mg bid\ klonopin 0.25 prn for anxiety monitor pt for psychopharmacological effects and side effect profile CBT supportive and group therapy Estimated Date of D/C: 08/16/17
[2017-08-11] MEDS: Omega-3-Acid Ethyl Esters 1 GM Cap PO SCH ×2 (08:43→18:00)
[2017-08-11] MEDS: Pantoprazole 40 mg EC Tab PO SCH (08:44)
[2017-08-11] MEDS: GlipiZIDE 2.5 mg SR Tab PO SCH (08:44)
[2017-08-11] MEDS: Metoprolol Succinate 25 mg XL Tab PO SCH (08:44)
--- NOTE | 2017-08-11 09:27 | PCM.PYCHPN ---
Psychiatric Progress Note - Psychiatric Progress Note Patient seen today, length of contact: Patient evaluated, case discussed w/ team , chart reviewed Patient Chief Complaint: "I'm depressed." Problems Identified/Issues Discussed: Patient continues to report feeling depressed. She states that she has recurrent negative thoughts which cause her to feel more depressed and anxious. She denies active suicidal ideation/plan/intent, but is concerned that she will feel suicidal if discharged. No AH/VH/paranoia/delusions. She was tearful on interview. Medication Change: No Medical Record Reviewed: Yes Mental Status Examination - Cognitive Function Orientation: Person, Place, Situation, Time Memory: Intact Attention: WNL Concentration: WNL Association: WNL Fund of Knowledge: [facility] Decription of patient's judgement and insights: Fair I/J - Mood Mood: Depressed, Anxious - Affect Affect: Constricted, Depressed - Speech Speech: Soft - Formal Thought Process Formal Thought Process: Circumstantial Psychotic Thoughts and Behaviors: Denies AH/VH/paranoia/delusions - Suicidal Ideation Suicidal Ideation: No - Homicidal Ideation Homicidal Ideation: No Goal/Treatment Plan - Goal/Treatment Plan Need for Continued Stay: Severe depression anxiety, Discharge may exacerbated symptoms Progress Toward Problem(s) and Goals/Treatment Plan: Major Depressive Disorder; patient needs continued hospitalization for treatment and safety -Individual and group therapy -Medicine consult appreciated -Continue current medications -Disposition planning Estimated Date of D/C: 08/16/17
[2017-08-12] MEDS: Omega-3-Acid Ethyl Esters 1 GM Cap PO SCH ×2 (09:14→17:35)
[2017-08-12] MEDS: Metoprolol Succinate 25 mg XL Tab PO SCH (09:15)
[2017-08-12] MEDS: Pantoprazole 40 mg EC Tab PO SCH (09:15)
[2017-08-12] MEDS: GlipiZIDE 2.5 mg SR Tab PO SCH (09:15)
--- NOTE | 2017-08-12 09:50 | PCM.PYCHPN ---
Psychiatric Progress Note - Psychiatric Progress Note Patient seen today, length of contact: Patient evaluated, case discussed w/ team , chart reviewed Patient Chief Complaint: "I'm anxious." Problems Identified/Issues Discussed: Patient reports improved sleep and feels less depressed. She continues to feel anxious. She denies active suicidal ideation/plan/intent. No AH/VH/paranoia/ delusions. She has been calm and cooperative w/ staff and peers. Medication Change: No Medical Record Reviewed: Yes Consults ordered or reviewed: Medicine consult Mental Status Examination - Cognitive Function Orientation: Person, Place, Situation, Time Memory: Intact Attention: WNL Concentration: WNL Association: [facility] Fund of Knowledge: [facility] Decription of patient's judgement and insights: Fair I/J - Mood Mood: Depressed, Anxious - Affect Affect: Constricted, Depressed - Speech Speech: Soft - Formal Thought Process Formal Thought Process: No Impairment Psychotic Thoughts and Behaviors: Denies AH/VH/paranoia/delusions - Suicidal Ideation Suicidal Ideation: No - Homicidal Ideation Homicidal Ideation: No Goal/Treatment Plan - Goal/Treatment Plan Need for Continued Stay: Severe depression anxiety, Discharge may exacerbated symptoms Progress Toward Problem(s) and Goals/Treatment Plan: Major Depressive Disorder; Generalized Anxiety Disorder; patient needs continued hospitalization for treatment and safety -Individual and group therapy -Medicine consult appreciated -Continue current medications -Disposition planning Estimated Date of D/C: 08/16/17
[2017-08-13] MEDS: Metoprolol Succinate 25 mg XL Tab PO SCH (09:04)
[2017-08-13] MEDS: GlipiZIDE 2.5 mg SR Tab PO SCH (09:05)
[2017-08-13] MEDS: Pantoprazole 40 mg EC Tab PO SCH (09:05)
[2017-08-13] MEDS: Omega-3-Acid Ethyl Esters 1 GM Cap PO SCH ×2 (09:05→18:01)
--- NOTE | 2017-08-13 11:34 | PCM.PYCHPN ---
Psychiatric Progress Note - Psychiatric Progress Note Patient seen today, length of contact: Patient evaluated, case discussed w/ team , chart reviewed Patient Chief Complaint: I am depressed, my son does not want me any more Problems Identified/Issues Discussed: pt presenting with depressed mood tearful and sad stated alo her son has not called her for the holiday and that he is actinglike he does not want her in his life anymore pt reported feeling as she is worthless as her son is her only family discussed with pt to avoid overgeneralization and to start having positive thought towarde her own self pt continues to feel down denied suicidal or homicidal ideations denied perceptual disturbances Medical Problems: DIABETES NEUROPATHY DSM 5 Symptoms Update: major depression generalized anxiety Medication Change: Yes (increase zoloft) Medical Record Reviewed: Yes Mental Status Examination - Cognitive Function Orientation: Person, Place, Situation, Time Memory: Intact Attention: WNL Concentration: WNL Association: WNL Fund of Knowledge: WNL - Mood Mood: Depressed, Anxious - Affect Affect: Constricted, Depressed - Speech Speech: Soft - Formal Thought Process Formal Thought Process: No Impairment - Suicidal Ideation Suicidal Ideation: No - Homicidal Ideation Homicidal Ideation: No Goal/Treatment Plan - Goal/Treatment Plan Need for Continued Stay: Severe depression anxiety, Discharge may exacerbated symptoms Progress Toward Problem(s) and Goals/Treatment Plan: increase zoloft to 75 mg continue remeron 15 mg qhs and trileptal 150mg bid\ klonopin 0.25 prn for anxiety monitor pt for psychopharmacological effects and side effect profile CBT supportive and group therapy Estimated Date of D/C: 08/16/17
[2017-08-14] MEDS: Omega-3-Acid Ethyl Esters 1 GM Cap PO SCH ×2 (08:53→17:28)
[2017-08-14] MEDS: Pantoprazole 40 mg EC Tab PO SCH (08:53)
[2017-08-14] MEDS: GlipiZIDE 2.5 mg SR Tab PO SCH (08:53)
[2017-08-14] MEDS: Metoprolol Succinate 25 mg XL Tab PO SCH (09:30)
--- NOTE | 2017-08-14 16:52 | PCM.PYCHPN ---
Psychiatric Progress Note - Psychiatric Progress Note Patient seen today, length of contact: Patient evaluated, case discussed w/ team , chart reviewed Patient Chief Complaint: I am less anxious because my son called me Problems Identified/Issues Discussed: pt presenting with depressed mood tearful and sad stated alo her son has not called her for the holiday and that he is actinglike he does not want her in his life anymore pt reported feeling as she is worthless as her son is her only family discussed with pt to avoid overgeneralization and to start having positive thought towarde her own self pt continues to feel down denied suicidal or homicidal ideations denied perceptual disturbances Medical Problems: DIABETES NEUROPATHY DSM 5 Symptoms Update: major depression Medication Change: No Medical Record Reviewed: Yes Mental Status Examination - Cognitive Function Orientation: Person, Place, Situation, Time Memory: Intact Attention: WNL Concentration: WNL Association: WNL Fund of Knowledge: WNL - Mood Mood: Depressed, Anxious - Affect Affect: Constricted, Depressed - Speech Speech: Soft - Formal Thought Process Formal Thought Process: No Impairment, Circumstantial - Suicidal Ideation Suicidal Ideation: No - Homicidal Ideation Homicidal Ideation: No Goal/Treatment Plan - Goal/Treatment Plan Need for Continued Stay: Severe depression anxiety, Discharge may exacerbated symptoms Progress Toward Problem(s) and Goals/Treatment Plan: continue zoloft 75 mg continue remeron 15 mg qhs and trileptal 150mg bid\ klonopin 0.25 prn for anxiety monitor pt for psychopharmacological effects and side effect profile CBT supportive and group therapy Estimated Date of D/C: 08/17/17
--- NOTE | 2017-08-14 23:46 | PN ---
DATE: 08/14/2017 SUBJECTIVE: Patient is seen today, 08/14/2017. She is not in any cardiopulmonary distress. PHYSICAL EXAMINATION: VITAL SIGNS: With blood pressure 134/77, temperature 98.2, respiratory rate 18, and pulse 82. HEENT: Pupils equal, reactive to light. Normal-appearing mucosa of the conjunctivae, oropharynx, and nasal membrane mucosa. NECK: Supple. No JVD. No carotid bruit. No lymph node. No thyromegaly. CHEST AND LUNGS: Bilateral symmetrical expansion. Good air exchange. No rales, no rhonchi. CARDIOVASCULAR SYSTEM: PMI not localized. S1, S2. No additional sounds. ABDOMEN: Normoactive bowel sounds. No tenderness. No organomegaly. No masses. EXTREMITIES: No cyanosis, no clubbing, no edema. CENTRAL NERVOUS SYSTEM: Alert, awake, oriented x2. No neurological deficit could be appreciated. ASSESSMENT: 1. Type 2 diabetes mellitus. 2. Hypertension. 3. Hypercholesterolemia. PLAN: Continue current medications and Accu-Cheks with insulin coverage as needed. Jeanne Fajardo MD
[2017-08-15] MEDS: Omega-3-Acid Ethyl Esters 1 GM Cap PO SCH ×2 (09:03→17:55)
[2017-08-15] MEDS: Pantoprazole 40 mg EC Tab PO SCH (09:04)
[2017-08-15] MEDS: Metoprolol Succinate 25 mg XL Tab PO SCH (09:04)
[2017-08-15] MEDS: GlipiZIDE 2.5 mg SR Tab PO SCH (09:04)
--- NOTE | 2017-08-15 13:44 | PCM.PYCHPN ---
Psychiatric Progress Note - Psychiatric Progress Note Patient seen today, length of contact: Patient evaluated, case discussed w/ team , chart reviewed Patient Chief Complaint: I need to stay busy and get back to my activities but I am too scared Problems Identified/Issues Discussed: pt reported feeling less depressed, better sleep but continues to feel anxious about leaving the hospital as she is worried about having conflict with her sirisha and also about her current financial status discussed with pt the possible coping skills with her current worries and patient was able to verbalize some coping skills also agreed to be linked to an [facility] on discharge for continuity of therapy denied any current suicidal or homicidal ideations denied perceptual disturbances, no reported side effects of the medications Medical Problems: DIABETES NEUROPATHY DSM 5 Symptoms Update: major depression generalized anxiety disorder Medication Change: No Medical Record Reviewed: Yes Mental Status Examination - Cognitive Function Orientation: Person, Place, Situation, Time Memory: Intact Attention: WNL Concentration: WNL Association: WN Fund of Knowledge: WN - Mood Mood: Depressed, Anxious - Affect Affect: Constricted, Depressed - Speech Speech: Soft - Formal Thought Process Formal Thought Process: No Impairment, Circumstantial Psychotic Thoughts and Behaviors: denied any current psychotic symptoms, non elicited - Suicidal Ideation Suicidal Ideation: No - Homicidal Ideation Homicidal Ideation: No Goal/Treatment Plan - Goal/Treatment Plan Need for Continued Stay: Severe depression anxiety, Discharge may exacerbated symptoms Progress Toward Problem(s) and Goals/Treatment Plan: continue zoloft 75 mg continue remeron 15 mg qhs and trileptal 150mg tid\ klonopin 0.25 prn for anxiety monitor pt for psychopharmacological effects and side effect profile CBT supportive and group therapy Estimated Date of D/C: 08/17/17
--- NOTE | 2017-08-16 08:48 | PN ---
DATE: 08/15/2017 SUBJECTIVE: The patient is seen today, 08/15/2017. She is complaining of low back pain. PHYSICAL EXAMINATION: VITAL SIGNS: Blood pressure is 131/75, temperature 96.6, respiratory rate 18, pulse 84. HEENT: Pupils equal, reactive to light. Normal-appearing mucosa of the conjunctivae, oropharyngeal and nasal membrane mucosa. NECK: Supple. No JVD. No carotid bruit. No lymph node. No thyromegaly. CHEST AND LUNGS: Bilateral symmetrical expansion. Good air exchange. No rales, no rhonchi. CARDIOVASCULAR SYSTEM: PMI not localized. S1 and S2. No additional sounds. ABDOMEN: Normoactive bowel sounds. No tenderness. No organomegaly. No masses. EXTREMITIES: No cyanosis, no clubbing, no edema. CENTRAL NERVOUS SYSTEM: Alert, awake, oriented x3. No neurological deficits could be appreciated. ASSESSMENT: 1. Degenerative spine disease with uncomplicated low back pain. 2. Hypertension. 3. Type 2 diabetes mellitus. 4. Hypercholesterolemia. PLAN: Continue current management, pain management, physical therapy. I will follow up with you. [facility] MD Scotty
[2017-08-16] MEDS: GlipiZIDE 2.5 mg SR Tab PO SCH (08:51)
[2017-08-16] MEDS: Omega-3-Acid Ethyl Esters 1 GM Cap PO SCH ×2 (08:51→18:00)
[2017-08-16] MEDS: Pantoprazole 40 mg EC Tab PO SCH (08:51)
--- NOTE | 2017-08-16 11:34 | PCM.PYCHPN ---
Psychiatric Progress Note - Psychiatric Progress Note Patient seen today, length of contact: Patient evaluated, case discussed w/ team , chart reviewed Patient Chief Complaint: I slept better soI am less anxious Problems Identified/Issues Discussed: pt reported feeling less depressed, better sleep but continues to feel anxious about leaving the hospital , discussed with pt the benifit of being linked to partial hospital on discharge, pt agreed denied any current suicidal or homicidal ideations denied perceptual disturbances, no reported side effects of the medications Medical Problems: DIABETES NEUROPATHY DSM 5 Symptoms Update: major depression generalized anxiety disorder Medication Change: No Medical Record Reviewed: Yes Mental Status Examination - Cognitive Function Orientation: Person, Place, Situation, Time Memory: Intact Attention: WNL Concentration: WNL Association: WNL Fund of Knowledge: WNL - Mood Mood: Depressed, Anxious - Affect Affect: Constricted, Depressed - Speech Speech: Soft - Formal Thought Process Formal Thought Process: No Impairment, Circumstantial Psychotic Thoughts and Behaviors: denied any current psychotic symptoms, non elicited - Suicidal Ideation Suicidal Ideation: No - Homicidal Ideation Homicidal Ideation: No Goal/Treatment Plan - Goal/Treatment Plan Need for Continued Stay: Severe depression anxiety, Discharge may exacerbated symptoms Progress Toward Problem(s) and Goals/Treatment Plan: continue zoloft 75 mg continue remeron 15 mg qhs and trileptal 150mg tid\ klonopin 0.25 prn for anxiety monitor pt for psychopharmacological effects and side effect profile CBT supportive and group therapy Estimated Date of D/C: 08/21/17
[2017-08-16] MEDS: Metoprolol Succinate 25 mg XL Tab PO SCH (18:00)
[2017-08-17] MEDS: Pantoprazole 40 mg EC Tab PO SCH (08:49)
[2017-08-17] MEDS: GlipiZIDE 2.5 mg SR Tab PO SCH (08:49)
[2017-08-17] MEDS: Omega-3-Acid Ethyl Esters 1 GM Cap PO SCH ×2 (08:50→16:20)
[2017-08-17] MEDS: Metoprolol Succinate 25 mg XL Tab PO SCH (08:55)
--- NOTE | 2017-08-17 11:54 | PCM.PYCHPN ---
Psychiatric Progress Note - Psychiatric Progress Note Patient seen today, length of contact: Patient evaluated, case discussed w/ team , chart reviewed Patient Chief Complaint: I AM BETTER TODAY BUT ANXIOUS ABOUT FACING THE OUTSIDE Problems Identified/Issues Discussed: pt reported feeling less depressed, better sleep but continues to feel anxious about leaving the hospital ,medical social consultant arranging for pt to be linked to partial hospital on discharge, denied any current suicidal or homicidal ideations denied perceptual disturbances, no reported side effects of the medications Medical Problems: DIABETES NEUROPATHY DSM 5 Symptoms Update: major depression generalized anxiety disorder Medication Change: No Medical Record Reviewed: Yes Mental Status Examination - Cognitive Function Orientation: Person, Place, Situation, Time Memory: Intact Attention: WNL Concentration: WNL Association: WNL Fund of Knowledge: WNL - Mood Mood: Depressed, Anxious, Neutral - Affect Affect: Constricted, Depressed - Speech Speech: Soft - Formal Thought Process Formal Thought Process: No Impairment, Circumstantial Psychotic Thoughts and Behaviors: denied any current psychotic symptoms, non elicited - Suicidal Ideation Suicidal Ideation: No - Homicidal Ideation Homicidal Ideation: No Goal/Treatment Plan - Goal/Treatment Plan Need for Continued Stay: Severe depression anxiety, Discharge may exacerbated symptoms Progress Toward Problem(s) and Goals/Treatment Plan: continue zoloft 75 mg continue remeron 15 mg qhs and trileptal 150mg tid\ klonopin 0.25 prn for anxiety monitor pt for psychopharmacological effects and side effect profile CBT supportive and group therapy Estimated Date of D/C: 08/21/17
[2017-08-18] MEDS: Pantoprazole 40 mg EC Tab PO SCH (09:15)
[2017-08-18] MEDS: Omega-3-Acid Ethyl Esters 1 GM Cap PO SCH ×2 (09:15→17:56)
[2017-08-18] MEDS: GlipiZIDE 2.5 mg SR Tab PO SCH (09:16)
[2017-08-18] MEDS: Metoprolol Succinate 25 mg XL Tab PO SCH (09:21)
--- NOTE | 2017-08-18 12:19 | PCM.PYCHPN ---
Psychiatric Progress Note - Psychiatric Progress Note Patient seen today, length of contact: Patient evaluated, case discussed w/ team , chart reviewed Patient Chief Complaint: I am alright but my sleep was interrupted Problems Identified/Issues Discussed: pt reported feeling less depressed, feeling lessl anxious ,reported decreased sleep but no changes in appetite social media marketing specialist arranging for pt to be linked to [facility] on discharge, denied any current suicidal or homicidal ideations denied perceptual disturbances, no reported side effects of the medications Medical Problems: DIABETES NEUROPATHY DSM 5 Symptoms Update: major depression generalized anxiety disorder Medication Change: No Medical Record Reviewed: Yes Mental Status Examination - Cognitive Function Orientation: Person, Place, Situation, Time Memory: Intact Attention: WNL Concentration: WNL Association: WNL Fund of Knowledge: WNL - Mood Mood: Depressed, Anxious, Neutral - Affect Affect: Constricted, Depressed - Speech Speech: Soft - Formal Thought Process Formal Thought Process: No Impairment, Circumstantial Psychotic Thoughts and Behaviors: denied any current psychotic symptoms, non elicited - Suicidal Ideation Suicidal Ideation: No - Homicidal Ideation Homicidal Ideation: No Goal/Treatment Plan - Goal/Treatment Plan Need for Continued Stay: Severe depression anxiety, Discharge may exacerbated symptoms Progress Toward Problem(s) and Goals/Treatment Plan: continue zoloft 75 mg continue remeron 15 mg qhs and trileptal 150mg tid\ klonopin 0.25 prn for anxiety monitor pt for psychopharmacological effects and side effect profile CBT supportive and group therapy Estimated Date of D/C: 08/21/17
[2017-08-18] MEDS: Petrolatum UD PAK TOP SCH ×2 (13:22→17:55)
[2017-08-19] MEDS: Petrolatum UD PAK TOP SCH ×3 (09:15→17:53)
[2017-08-19] MEDS: Omega-3-Acid Ethyl Esters 1 GM Cap PO SCH ×2 (09:16→17:50)
[2017-08-19] MEDS: Pantoprazole 40 mg EC Tab PO SCH (09:16)
[2017-08-19] MEDS: Metoprolol Succinate 25 mg XL Tab PO SCH (09:17)
[2017-08-19] MEDS: GlipiZIDE 2.5 mg SR Tab PO SCH (09:17)
--- NOTE | 2017-08-19 10:59 | PCM.PYCHPN ---
Psychiatric Progress Note - Psychiatric Progress Note Patient seen today, length of contact: Patient evaluated, case discussed w/ team , chart reviewed Patient Chief Complaint: I slept better last night Problems Identified/Issues Discussed: pt reported feeling less depressed, ,reported improved sleep, no changes in appetite pt looking forward to start partial hospital on discharge, denied any current suicidal or homicidal ideations denied perceptual disturbances, no reported side effects of the medications Medical Problems: DIABETES NEUROPATHY DSM 5 Symptoms Update: major depression generalized anxiety disorder Medication Change: No Medical Record Reviewed: Yes Mental Status Examination - Cognitive Function Orientation: Person, Place, Situation, Time Memory: Intact Attention: WNL Concentration: WNL Association: [facility] Fund of Knowledge: [facility] - Mood Mood: Depressed, Anxious, Neutral - Affect Affect: Constricted, Depressed - Speech Speech: Soft - Formal Thought Process Formal Thought Process: No Impairment, Circumstantial Psychotic Thoughts and Behaviors: denied any current psychotic symptoms, non elicited - Suicidal Ideation Suicidal Ideation: No - Homicidal Ideation Homicidal Ideation: No Goal/Treatment Plan - Goal/Treatment Plan Need for Continued Stay: Severe depression anxiety, Discharge may exacerbated symptoms Progress Toward Problem(s) and Goals/Treatment Plan: continue zoloft 75 mg continue remeron 15 mg qhs and trileptal 150mg tid\ klonopin 0.25 prn for anxiety monitor pt for psychopharmacological effects and side effect profile CBT supportive and group therapy Estimated Date of D/C: 08/21/17
[2017-08-20] MEDS: GlipiZIDE 2.5 mg SR Tab PO SCH (10:00)
[2017-08-20] MEDS: Omega-3-Acid Ethyl Esters 1 GM Cap PO SCH ×2 (10:01→17:23)
[2017-08-20] MEDS: Pantoprazole 40 mg EC Tab PO SCH (10:02)
[2017-08-20] MEDS: Petrolatum UD PAK TOP SCH ×3 (10:03→17:26)
[2017-08-20] MEDS: Metoprolol Succinate 25 mg XL Tab PO SCH (10:04)
--- NOTE | 2017-08-20 10:57 | PCM.PYCHPN ---
Psychiatric Progress Note - Psychiatric Progress Note Patient seen today, length of contact: Patient evaluated, case discussed w/ team , chart reviewed Patient Chief Complaint: I am good today Problems Identified/Issues Discussed: pt reported feeling less depressed, ,reported improved sleep, no changes in appetite, seen interacting with peers pt looking forward to start partial hospital on discharge, denied any current suicidal or homicidal ideations denied perceptual disturbances, no reported side effects of the medications Medical Problems: DIABETES NEUROPATHY DSM 5 Symptoms Update: major depression generalized anxiety disorder Medication Change: No Medical Record Reviewed: Yes Mental Status Examination - Cognitive Function Orientation: Person, Place, Situation, Time Memory: Intact Attention: WNL Concentration: WNL Association: WN Fund of Knowledge: WNL - Mood Mood: Depressed, Anxious, Neutral - Affect Affect: Constricted, Depressed - Speech Speech: Soft - Formal Thought Process Formal Thought Process: No Impairment, Circumstantial Psychotic Thoughts and Behaviors: denied any current psychotic symptoms, non elicited - Suicidal Ideation Suicidal Ideation: No - Homicidal Ideation Homicidal Ideation: No Goal/Treatment Plan - Goal/Treatment Plan Need for Continued Stay: Severe depression anxiety, Discharge may exacerbated symptoms Progress Toward Problem(s) and Goals/Treatment Plan: continue zoloft 75 mg continue remeron 15 mg qhs and trileptal 150mg tid\ klonopin 0.25 prn for anxiety monitor pt for psychopharmacological effects and side effect profile CBT supportive and group therapy Estimated Date of D/C: 08/21/17
[2017-08-21] MEDS: Omega-3-Acid Ethyl Esters 1 GM Cap PO SCH (09:35)
[2017-08-21] MEDS: GlipiZIDE 2.5 mg SR Tab PO SCH (09:36)
[2017-08-21] MEDS: Metoprolol Succinate 25 mg XL Tab PO SCH (09:40)
[2017-08-21 09:42] VITALS: BP 140/82; PULSE 92
--- NOTE | 2017-08-21 12:18 | PCM.PYCHDC ---
Mental Status Examination - Mental Status Examination Orientation: Person, Place, Situation Memory: Intact Mood: Neutral Affect: Broad Speech: Appropriate Attention: WNL Concentration: WNL Association: WNL Fund of Knowledge: WNL Formal Thought Process: No Impairment Description of patient's judgement and insight: partial insight fair judgement Psychotic Thoughts and Behaviors: denied any current psychotic symptoms, non elicited Suicidal Ideation: No Current Homicidal Ideation?: No Discharge Summary - Discharge Note Reason for Hospitalization: t with previous diagnosis of depression with psychotic features, presented to ER with suicidal ideations with plan to overdose on her medications, pt recently discharged from hospital following with primary care, pt however feeling anxious and depressed, with insomnia hopelessness and helplessness, pt stopped her medications for two weeks and started compensating currently reporting passive suicidal ideations with no plan on the unit, denied homicidal ideations denied psychotic symptoms Consultations:: List each consultation separately and include: 1. Reason for request. 2. Findings. 3. Follow-up Summary of Hospital Course include:: 1. Description of specific treatment plan utilized for patients during their course of treatmen. 2. Summarize the time- course for resolution of acute symptoms and/or regressed behaviors. 3. Describe issues identified and worked on during hospitalization. 4. Describe medication utilized. 5. Describe medical problems identified and treated. 6. Reassessment of suicide risk Summary of Hospital Course: pt on admission presented with depressed mood and insomnia. pt was started on remeron , was uptitrated gradually also zoloft was started, pt was placed on trileptal for neuropathic pain CBT, group and supportive therapy was provided pt was compliant with treatment attended groups, no reported side effects of medications on discharge pt mental status was stable, pt denied suicidal or homicidal ideations denied perceptual disturbances - Diagnosis (1) Depression Current Visit: Yes Status: Acute - Final Diagnosis (DSM 5) Condition upon Discharge: STABLE DSM 5: major depression recurrent severe without psychotic features generalized anxiety disorder Disposition: HOME/ ROUTINE Prescriptions/Medication Reconciliation: Atorvastatin [Lipitor] 10 mg PO DAILY 30 Days #30 tab Fenofibrate [Tricor] 145 mg PO DAILY 30 Days #30 tab GlipiZIDE SR [Glucotrol XL] 2.5 mg PO BRK 30 Days #30 tab Lisinopril [Zestril] 2.5 mg PO DAILY 30 Days #15 tab Metoprolol Succinate [Toprol XL] 25 mg PO DAILY 30 Days #30 tab Mirtazapine [Remeron] 15 mg PO HS 30 Days #30 tab [id number] Ethyl Esters 1 GM [Lovaza] 2 gm PO BID 30 Days #30 sgl OXcarbazepine [Trileptal] 150 mg PO TID 30 Days #90 tab Pantoprazole [Protonix EC Tab] 40 mg PO DAILY 30 Days #30 ect Petrolatum [Vaseline Oint] 1 pkt TOP TID 30 Days #1 fp Sertraline [Zoloft] 75 mg PO DAILY 30 Days #90 tab - Antipsychotic Medications Pt discharged on 2 or more routine antipsychotic medications: No
[2017-08-21] MEDS: Petrolatum UD PAK TOP SCH ×2 (13:00)
[2017-08-21 14:28] VITALS: RESP 20; TEMP 97.9
--- NOTE | 2017-08-21 23:55 | PN ---
DATE: 08/21/2017 DAILY PROGRESS NOTE SUBJECTIVE: Patient was seen today on 08/21/2017. PHYSICAL EXAMINATION: GENERAL: She is not in any cardiopulmonary distress. VITAL SIGNS: Blood pressure was 140/82, temperature 97.9, respiratory rate 20 and pulse 90. HEENT: Pupils equal, reactive to light. Normal-appearing mucosa of the conjunctivae, oropharynx and nasal membrane mucosa. NECK: Supple. No JVD. No carotid bruit. No lymph node. No thyromegaly. CHEST AND LUNGS: Bilateral symmetrical expansion. Good air exchange. No rales, no rhonchi. CARDIOVASCULAR SYSTEM: PMI not localized. S1, S2. No additional sounds. ABDOMEN: Normoactive bowel sounds. No tenderness. No organomegaly. No masses. EXTREMITIES: No cyanosis, no clubbing, no edema. CENTRAL NERVOUS SYSTEM: Alert, awake, oriented x3. No neurological deficit could be appreciated. ASSESSMENT: Type 2 diabetes mellitus, hypertension, hypercholesterolemia, degenerative spine disease with radiculopathy. PLAN: Continue current medications and if the patient would be discharged, she can follow up with me as an outpatient in 2 weeks. We will sign out and please call if any further medical management is needed. Jeanne Fajardo MD
== END 2017-08-21 16:50 | disposition home or self-care (01) | DRG 885 ==
LOC: H.ER 14:57 → H.ERHOLD 20:24 → H.PSYCH 22:19
PROVIDERS: ADMIT Psychiatry & Neurology Psychiatry; ATTEND Psychiatry & Neurology Psychiatry
PROC: GZHZZZZ Group Psychotherapy (ICD-10-PCS; principal; 2017-08-07)
PROC: GZ51ZZZ Individual Psychotherapy, Behavioral (ICD-10-PCS; 2017-08-07)
DX: F33.2 Major depressive disorder, recurrent severe without psychotic features (principal); I42.0 Dilated cardiomyopathy; R45.851 Suicidal ideations; F41.1 Generalized anxiety disorder; G47.00 Insomnia, unspecified; I10 Essential (primary) hypertension; J06.9 Acute upper respiratory infection, unspecified; J44.9 Chronic obstructive pulmonary disease, unspecified; K21.9 Gastro-esophageal reflux disease without esophagitis; M06.9 Rheumatoid arthritis, unspecified; M54.10 Radiculopathy, site unspecified; Z79.4 Long term (current) use of insulin; Z79.899 Other long term (current) drug therapy; Z87.891 Personal history of nicotine dependence; Z90.49 Acquired absence of other specified parts of digestive tract; Z95.810 Presence of automatic (implantable) cardiac defibrillator; R56.9 Unspecified convulsions; Z79.84 Long term (current) use of oral hypoglycemic drugs; M54.5 Low back pain; E11.9 Type 2 diabetes mellitus without complications; E78.00 Pure hypercholesterolemia, unspecified; E78.5 Hyperlipidemia, unspecified; F29 Unspecified psychosis not due to a substance or known physiological condition